=== PATIENT | female | born 1985 | race African-American/Black ===

== ENCOUNTER 2024-09-05 09:04 | Outpatient (CLI) | payer BC, SELFPAY ==
[2024-09-05 10:07] LABS: Hematocrit 39.9 % (37.0-47.0); Hemoglobin 12.7 g/dL (12.0-15.0); Mean Corpuscular HGB Conc 31.8 g/dl (32-36); Mean Corpuscular Hemoglobin 29.7 pg (26-34); Mean Corpuscular Volume 93.2 fl (80-100); Mean Platelet Volume 12.2 fl (7.4-10.4); Platelet Count Result 168 k/mm3 (150-375); Red Blood Count 4.28 M/mm3 (4.2-5.4); Red Cell Distribution Width 12.6 % (11.5-14.5); White Blood Count 7.7 K/mm3 (4.5-10.0)
--- OUTSIDE RECORDS SUMMARY | 2024-09-09 00:48 | XMS_ITS | Encounter Summary ---
Author Organization [facility] Address [address] [place] [address]. [place], [place] [address] [place] [id number] Care Team Providers Care Medical Billing Representative Name Role Phone Steve Benitez MD Primary Care Provider [phone] Reason for Visit * Reason Comments Urinary Symptoms Encounter Details Date Type Department Care Team (Latest Contact Info) Description 09/27/2018 11:36 AM WATER TESTER - 09/27/2018 12:18 PM WATER TESTER Hospital Encounter [facility] [id number] [place] [address] Gustavo Gore PA-C [address] [address] Urinary Symptoms Discharge Disposition: Home or Self Care (Routine Discharge) Social History Tobacco Use Types Packs/Day Years Used Date Smoking Tobacco: Never Smokeless Tobacco: Never Alcohol Use Standard Drinks/Week Comments No 0 (1 standard drink = 0.6 oz pur e alcohol) AUDIT-C Answer Date Recorded Frequency of Alcohol Consumption Never 09/27/2018 Average Number of Drinks Not on file 019 Frequency of Binge Drinking Not on file 01/2019 Comments No Sex and Gender Information Value Date Recorded Sex Assigned at Not on file Legal Sex Female 11:32 AM WATER TESTER Gender Identity Not on file Sexual Orientation Not on file documented as of this encounter Last Filed Vital Signs Vital Sign Reading Time Taken Comments Blood Pressure 144/91 09/27/2018 11:37 AM WATER TESTER Pulse 72 09/27/2018 11:37 AM WATER TESTER Temperature 36.9 ??C (98.4 ??F) 09/27/2018 11:[address] Respiratory Rate 20 09/27/2018 11:37 AM WATER TESTER Oxygen Saturation 100% 09/27/2018 11:37 AM WATER TESTER Inhaled Oxygen Concentration - - Weight 80.7 kg (178 lb) 09/27/2018 11:37 AM WATER TESTER Height 160 cm (5' 3 ) 09/27/2018 11:37 AM WATER TESTER Body Mass Index 31.53 09/27/2018 11:37 AM WATER TESTER documented in this encounter Discharge Instructions * Discharge Instructions* Gustavo Gore PA-C - 09/27/2018 12:16 PM WATER TESTER Use antibiotics as directed for urinary tract infection. Use antibiotics as directed for bacterial vaginosis. Use Diflucan 1 time as directed. Follow-up with your primary care physician for further evaluation of symptoms and follow- up with GLORY HOLE TENDER at your upcoming appointment regarding current symptoms. Return to ED if symptoms change or worsen. R TESTER * Attachments The following attachments cannot be sent through Care Everywhere. * Urinary Tract Infection Discharge Instructions, Adult (Malawian) * Bacterial Vaginosis Discharge Instructions (Malawian) documented in this encounter Medications at Time of Discharge B Complex Vitamins (B-COMPLEX/B-12 OR) estradiol 0.1 MG/24HR Place 1 patch onto the skin once a week. ferrous sulfate, 65 mg elemental, 325 (65 FE) MG tablet Take 325 mg by mouth daily with breakfast. montelukast 10 MG tablet Take 10 mg by mouth nightly at bedtime. multivitamin tablet TK 1 T PO QD 0 07/05/2018 cephALEXin 500 MG capsule Take 1 capsule (500 mg total) by mouth 2 (two) times daily for 7 days. 14 capsule 09/27/2018 10/04/2018 fluconazole (DIFLUCAN) 150 MG tablet Take 1 tablet (150 mg total) by mouth once for 1 dose. 1 tablet 09/27/2018 09/27/2018 metroNIDAZOLE 500 MG tablet Take 1 tablet (500 mg total) by mouth 2 (two) times a day for 7 days. 14 tablet 09/27/2018 10/04/2018 documented as of this encounter ED Notes * Gustavo Gore PA-C - 09/27/2018 12:02 PM CST Chief Complaint Chief Complaint Patient presents with ??? Urinary Symptoms History of Present Illness Patient is a 33-year-old -Greenlandic female who presents to the urgent care with reports of increased urinary frequency, intermittent lumbar back pain and vaginal discharge over the past 1 week.Patient reports her GLORY HOLE TENDER prescribed metronidazole gel and Diflucan which she reports she took last week without improvement of her symptoms. Patient reports no concern for sexual transmitted infection. Patient denies any fever, chills, chest pain, shortness of breath, nausea, vomiting, abdominal pain, diarrhea or constipation. Medical History ALLERGIES: No Known Allergies MEDICATIONS: Prior to Admission medications Medication Sig Start Date End Date Taking? Authorizing Provider B Complex Vitamins (B-COMPLEX/B-12 OR) Yes Doc Abstract cephALEXin 500 MG capsule Take 1 capsule (500 mg total) by mouth 2 (two) times daily for 7 days. 09/27/18 10/04/18 Yes Gustavo Gore PA-C estradiol 0.1 MG/24HR Place 1 patch onto the skin once a week. Yes Doc Abstract ferrous sulfate, 65 mg elemental, 325 (65 FE) MG tablet Take 325 mg by mouth daily with breakfast. Yes Doc Abstract fluconazole (DIFLUCAN) 150 MG tablet Take 1 tablet (150 mg total) by mouth once for 1 dose. 09/27/18 09/27/18 Yes Gustavo Gore PA-C metroNIDAZOLE 500 MG tablet Take 1 tablet (500 mg total) by mouth 2 (two) times a day for 7 days. 09/27/18 10/04/18 Yes Gustavo Gore PA-C montelukast 10 MG tablet Take 10 mg by mouth nightly at bedtime. Yes Doc Abstract multivitamin tablet TK 1 T PO QD 07/05/18 Doc Abstract PAST MEDICAL HISTORY: Past Medical History: Diagnosis Date ??? Asthma PAST SURGICAL HISTORY: Past Surgical History: Procedure Laterality Date ??? TUBAL LIGATION FAMILY HISTORY: Family History Problem Relation Age of Onset ??? Hypertension Mother SOCIAL HISTORY: Social History Tobacco Use ??? Smoking status: Never Smoker ??? Smokeless tobacco: Never Used Substance Use Topics ??? Alcohol use: No Frequency: Never ??? Drug use: No Review of Systems Review of Systems Constitutional: Negative for fever. HENT: Negative for congestion. Respiratory: Negative for cough and shortness of breath. Gastrointestinal: Negative for abdominal pain, diarrhea, nausea and vomiting. Genitourinary: Positive for dysuria, frequency and vaginal discharge. Negative for flank pain. Musculoskeletal: Positive for back pain. Skin: Negative for rash. All other systems reviewed and are negative. Physical Exam Filed Vitals: 09/27/18 1137 BP: (!) 144/91 Pulse: 72 Resp: 20 Temp: 98.4 ??F (36.9 ??C) TempSrc: Temporal SpO2: 100% Weight: 80.7 kg (178 lb) Height: 5' 3 (1.6 m) Physical Exam Constitutional: She is oriented to person, place, and time. She appears well- developed and well-nourished. No distress. HENT: Nose: Nose normal. Mouth/Throat: Oropharynx is clear and moist. Eyes: EOM are normal. Neck: Normal range of motion. Cardiovascular: Normal rate, regular rhythm and normal heart sounds. Pulmonary/Chest: Effort normal and breath sounds normal. No respiratory distress. She has no wheezes. Abdominal: Soft. There is no tenderness. There is no rebound and no guarding. No abdominal tenderness on exam. No rebounding or guarding. No flank tenderness bilaterally. Musculoskeletal: Normal range of motion. No CVA tenderness on exam. Normal range of motion upper and lower back. No lumbar tenderness on exam. Neurological: She is alert and oriented to person, place, and time. Skin: No rash noted. She is not diaphoretic. Psychiatric: She has a normal mood and affect. Nursing note and vitals reviewed. Diagnostic Studies / Procedures ELECTROCARDIOGRAMS: No results found for this visit on 09/27/18. LABORATORY STUDIES: Results for orders placed or performed during the hospital encounter of 09/27/18 URINALYSIS AUTO DIP Result Value Ref Range Specimen Type URINE CLEAN CATCH COLOR YELLOW TRANSPARENCY CLEAR Specific Martin (U) 1.020 1.001 - 1.030 U PH 7.0 5.0 - 9.0 LEUKOCYTE ESTERASE LARGE (A) NEGATIVE NITRITES NEGATIVE NEGATIVE PROTEIN, URINE NEGATIVE <30 MG/DL URINE GLUCOSE NEGATIVE NEGATIVE MG/DL U KETONES NEGATIVE NEGATIVE MG/DL UROBILINOGEN 0.2 (A) NEGATIVE MG/DL Urine Bilirubin NEGATIVE NEGATIVE MG/DL BLOOD TRACE (A) NEGATIVE CULTURE & SENSITIVITY INDICATED? SPECIMEN SETUP FOR CULTURE TEST URINE Result Value Ref Range PREG TEST NEGATIVE Specific Martin (U) 1.020 >1.009 IMAGING STUDIES No orders to display ED Course / Medical Decision Making MDM No concerning findings on physical exam. UA shows large amount of leukocyte esterase and trace amount of blood. Patient reports currently atthe end of her menstrual cycle. test negative. Patient denies any concern or risk for sexually transmitted infection. Patient will be treated with Keflex for UTI. Patient will be given metronidazole for possible bacterial vaginosis and Diflucan for yeast infection. Patient agreed to follow-up with her GLORY HOLE TENDER Dr. Espinal and has upcoming appointment. Patient was given discharge instructions and return precautions and had no questions at this time. Patient told to return to the ED if symptoms change or worsen. Clinical Impression UTI (urinary tract infection) (Primary) Vaginal discharge Disposition: Discharge Gustavo Gore PA-C 09/27/18 1217 Cosigned by David Navarro MD at 09/27/2018 1:11 PM WATER TESTER R TESTER R TESTER * Veronica Cerrato RN - 09/27/2018 11:44 AM CST PATIENT C/O LOW BACK PAIN, FREQUENCY, VAGINAL DISCHARGE WITH ODOR THAT IS WHITE. FOR PAST 3 WEEKS. TELEMETRY REGISTERED NURSE CALLED HER IN A SCRIPT FOR THE YEAST. R TESTER documented in this encounter Plan of Treatment Not on file documented as of this encounter Procedures Procedure Name Priority Date/Time Associated Diagnosis Comments TEST URINE STAT 09/27/2018 11:46 AM WATER TESTER URINE BACTERIA CULTURE Routine 09/27/2018 11:46 AM WATER TESTER URINALYSIS AUTO DIP STAT 09/27/2018 1 1:46 AM WATER TESTER documented in this encounter Results * CULTURE URINE (09/27/2018 11:46 AM WATER TESTER) SPEC DESCRIPTION URINE CLEAN CATCH 09/27/2018 12:08 PM WATER TESTER [facility] SPECIAL REQUESTS NO SPECIAL REQUEST 09/27/2018 12:08 PM WATER TESTER [facility] CULTURE RESULT POLYMICROBIAL GROWTH CONSISTENT WITH NORMAL GENITAL DANI. ?? SUSCEPTIBILITIES NOT ROUTINELY PERFORMED. 09/29/2018 3:43 PM WATER TESTER [facility] URINE SPECIMEN OBTAINED BY CLEAN CATCH PROCEDURE / Unknown 09/27/2018 11:46 AM WATER TESTER 09/27/2018 12:08 PM WATER TESTER Gustavo Gore PA-C MICROBIOLOGY - GENERAL ORDERABLES Final Result Performing Organization Address City/[facility]/ZIP Co de Phone Number [facility] [address] [place] [address], [place] [phone] [place] [address], [place] * TEST URINE (09/27/2018 11:46 AM WATER TESTER) PREG TEST NEGATIVE 09/27/2018 12:05 PM WATER TESTER [facility] SPECIFIC GRAVITY (U) 1.020 >1.009 09/27/2018 12:05 PM [facility] URINE SPECIMEN OBTAINED BY CLEAN CATCH PROCEDURE / Unknown 09/27/2018 11:46 AM WATER TESTER Gustavo Gore PA-C [place] [address], [place] * (ABNORMAL) URINALYSIS AUTO DIP (09/27/2018 11:46 AM WATER TESTER) SPECIMEN TYPE URINE CLEAN CATCH 09/27/2018 11:46 AM [facility] COLOR (U) YELLOW 09/27/2018 12:07 PM WATER TESTER [facility] Comment: TESTING PERFORMED AT [facility] [address] [place] [address] ??[id number] [address]O M[address]D., RO[address] CROSSING GUARD TRANSPARENCY CLEAR 09/27/2018 12:07 PM [facility] SPECIFIC GRAVITY (U) 1.020 1.001 - 1.030 09/27/2018 12:07 PM [facility] U PH 7.0 5.0 - 9.0 09/27/2018 12:07 PM [facility] LEUKOCYTES (U) LARGE(A) NEGATIVE 09/27/2018 12:07 PM [facility] NITRITES NEGATIVE NEGATIVE 09/27/2018 12:07 PM [facility] PROTEIN (U) NEGATIVE <30 MG/DL 09/27/2018 12:07 PM [facility] URINE GLUCOSE NEGATIVE NEGATIVE MG/DL 09/27/2018 12:07 PM [facility] KETONES MG/DL (U) NEGATIVE NEGATIVE MG/DL 09/27/2018 12:07 PM [facility] UROBILINOGEN 0.2(A) NEGATIVE MG/DL 09/27/2018 12:07 PM [facility] BILIRUBIN (U) NEGATIVE NEGATIVE MG/DL 09/27/2018 12:07 PM [facility] BLOOD (U) TRACE(A) NEGATIVE 09/27/2018 12:07 PM [facility] CULTURE & SENSITIVITY INDICATED? SPECIMEN SETUP FOR CULTURE 09/27/2018 12:07 PM [facility] URINE SPECIMEN OBTAINED BY CLEAN CATCH PROCEDURE / Unknown 09/27/2018 11:46 AM WATER TESTER us Gustavo Gore PA-C URINE ORDERABLES Final [place] [address], documented in this encounter Visit Diagnoses Diagnosis UTI (urinary tract infection)- Primary Urinary tract infection, site not specified Vaginal discharge Leukorrhea, not specified as infective documented in this encounter Care Teams Medical Billing Representative Relationship Specialty Start Date End Date Steve Benitez MD PCP - General INTERNAL MEDICINE 09/27/18 documented as of this encounter
--- OUTSIDE RECORDS SUMMARY | 2024-09-09 00:48 | XMS_ITS | Encounter Summary ---
Author Organization [facility] Address [address] [place] [address]. [place], [place] [id number] [place], [place] [id number] Care Team Providers Care Wholesaler Name Role Phone Steve Benitez MD Primary Care Provider [phone] Encounter Details Date Type Department Care Team (Latest Contact Info) Description 12/05/2023 Travel Social History Tobacco Use Types Packs/Day Years [...] on file Legal Sex Female 11:32 AM PRODUCT DESIGN SPECIALIST Gender Identity Not on file Sexual Orientation Not on file documented as of this encounter Plan of Treatment Not on file documented as of this encounter Visit Diagnoses Not on filedocumented in this encounter Additional Health Concerns Infection Onset Date Last Indicated Resolved Time Influenza - Seasonal 12/02/2023 12/02/2023 024 12:32 AM CDT documented as of this encounter Care Teams Wholesaler Relationship Specialty Start Date End Date Steve Benitez MD PCP - General INTERNAL MEDICINE 09/27/18 documented as of this encounter
--- OUTSIDE RECORDS SUMMARY | 2024-09-09 00:48 | XMS_ITS | Encounter Summary ---
Author Organization [facility] Address [address] [place] [address]. [place], [place] [id number] [place] [id number] Care Team Providers Care Banking Paralegal Name Role Phone Steve Benitez MD Primary Care Provider [phone] Reason for Visit * Reason Comments Flu Like Symptoms Encounter Details Date Type Department Care Team (Late st Contact Info) Description 12/02/2023 8:39 PM CDT - 12/02/2023 10:04 PM CDT Emergency [facility] [place] [address] Nupur Sanchez, [facility] [address] [address] Flu Like Symptoms Discharge Disposition: Home or Self Care [...] on file Legal Sex Female 11:32 AM [employer] Gender Identity Not on file Sexual Orientation Not on file documented as of this encounter Last Filed Vital Signs Vital Sign Reading Time Taken Comments Blood Pressure 139/80 12/02/2023 8:14 PM CDT Pulse 54 12/02/2023 8:12 PM CDT Temperature 36.2 ??C (97.2 ??F) 12/02/2023 8:12 PM CD T Respiratory Rate 18 12/02/2023 8:12 PM CDT Oxygen Saturation 98% 12/02/2023 8:12 PM CDT Inhaled Oxygen Concentration - - Weight 90.7 kg (200 lb) 12/02/2023 8:12 PM CDT Height 160 cm (5' 3 ) 12/02/2023 8:12 PM CDT Body Mass Index 35.43 12/02/2023 8:12 PM CDT documented in this encounter Discharge Instructions * Discharge Instructions* JULIO Stroud - 12/02/2023 9:55 PM CDT Flu symptoms typically last anywhere between 5 to 8 days, be sure to get plenty of fluids and rest while you are not feeling well, you may alternate Tylenol and ibuprofen for body aches or chills. Thank you for giving us the opportunity to care for you today. If at any point you are becoming more ill, please call your doctor, or go to the ER. You are always welcome back. If you have any questions about this visit, concerns about your symptoms, questions about your medications or other concerns, please give us a call. Our practice is committed to providing you the very best in healthcare. We want to hear from you! Please fill out the survey you get from us. Your feedback is anonymous and helps us improve the patient experience for you and others in the community we serve. - JULIO Crowder- - Emergency Medicine Provider * Attachments The following attachments cannot be sent through Care Everywhere. * Flu (Russian) documented in this encounter Medications at Time [...] TK 1 T PO QD 0 07/05/2018 benzonatate (TESSALON PERLES) 100 MG capsule Take 2 capsules (200 mg total) by mouth 3 (three) times daily as needed. 20 capsule 12/02/2023 12/09/2023 oseltamivir (TAMIFLU) 75 MG capsule Take 1 capsule (75 mg total) by mouth 2 (two) times daily for 5 days. 10 capsule 12/02/2023 12/07/2023 documented as of this encounter ED Notes * JULIO Stroud - 12/02/2023 8:13 PM CDT Chief Complaint Chief Complaint Patient presents with Flu Like Symptoms History of Present Illness 38-year-old female presents for evaluation of cough, body aches, chills. Here with son who has similar symptoms. She started feeling poorly on Saturday. Denies shortness of breath or hemoptysis. Medical History ALLERGIES: Review of patient's allergies indicates: No Known Allergies MEDICATIONS: Prior to Admission medications Medication Sig Start Date End Date Taking? Authorizing Provider benzonatate (TESSALON PERLES) 100 MG capsule Take 2 capsules (200 mg total) by mouth 3 (three) times daily as needed. 12/02/23 12/09/23 Yes JULIO Stroud oseltamivir (TAMIFLU) 75 MG capsule Take 1 capsule (75 mg total) by mouth 2 (two) times daily for 5days. 12/02/23 12/07/23 Yes JULIO Stroud B Complex Vitamins (B-COMPLEX/B-12 OR) Doc [facility] estradiol 0.1 MG/24HR Place 1 patch onto the skin once a week. Doc [facility] ferrous sulfate, 65 mg elemental, 325 (65 FE) MG tablet Take 325 mg by mouth daily with breakfast. [facility] montelukast 10 MG tablet Take 10 mg by mouth nightly at bedtime. [facility] multivitamin tablet TK 1 T PO QD 07/05/18 Doc [facility] PAST MEDICAL HISTORY: Past Medical History: Diagnosis Date Asthma PAST SURGICAL HISTORY: Past Surgical History: Procedure Laterality Date TUBAL LIGATION FAMILY HISTORY: Family History Problem Relation Name Age of Onset Hypertension Mother SOCIAL HISTORY: Social History Tobacco Use Smoking status: Never Smokeless tobacco: Never Substance Use Topics Alcohol use: No Drug use: No Review of Systems Review of Systems Respiratory: Positive for cough. Physical Exam Filed Vitals: 12/02/23201112/02/232013 BP: 139/80 Pulse: (!) 54 Resp: 18 Temp: 97.2 ??F (36.2 ??C) TempSrc: Temporal SpO2: 98% Weight: 90.7 kg (200 lb) Height: 1.6 m (5' 3 ) Physical Exam Vitals and nursing note reviewed. Constitutional: Appearance: She is well-developed. She is ill-appearing. HENT: Head: Normocephalic. Eyes: Pupils: Pupils are equal, round, and reactive to light. Cardiovascular: Rate and Rhythm: Normal rate and regular rhythm. Pulmonary: Effort: Pulmonary effort is normal. No respiratory distress. Breath sounds: Normal breath sounds. No wheezing or rales. Musculoskeletal: General: Normal range of motion. Skin: General: Skin is warm and dry. Neurological: Mental Status: She is alert and oriented to person, place, and time. Psychiatric: Mood and Affect: Mood normal. Diagnostic Studies / Procedures ELECTROCARDIOGRAMS: No results found for this visit on 12/02/23. LABORATORY STUDIES: Results for orders placed or performed during the hospital encounter of 12/02/23 CORONAVIRUS (COVID 19) Specimen: NASAL Result Value Ref Range CORONAVIRUS SARS COV 2 RNA NEGATIVE NEGATIVE Specimen Type NASAL INFLUENZA A & B Specimen: NASOPHARYNGEAL SWAB Result Value Ref Range Specimen Type SWAB INFLUENZA A NEGATIVE NEGATIVE INFLUENZA B POSITIVE (A) NEGATIVE IMAGING STUDIES: XR CHEST PORTABLE Final Result by User, [id number] (12/01 2101) Examination: Chest x-ray 1 view Exam date/time: 12/02/2023 8:37 PM Reason For Exam: cough, fever Comparison: No prior exam Technique: Upright AP view of the chest demonstrated. Findings: The cardiac silhouette, mediastinal contours, and pulmonary vessels appear normal. The lungs are clear. No pneumothorax. No consolidations or effusions are seen. =====IMPRESSION:===== No radiographic evidence of active chest disease Ordered By: NUPUR SANCHEZ Interpreted By: Nito Lizarraga MD, 12/02/2023 9:01 PM MEDICATIONS: Medications acetaminophen (TYLENOL) tablet 650 mg (650 mg Oral Given 12/02/232044) benzonatate (TESSALON) capsule 200 mg (200 mg Oral Given 12/02/232045) Discharge Medication List as of 12/02/2023 10:01 PM START taking these medications Details benzonatate (TESSALON PERLES) 100 MG capsule Take 2 capsules (200 mg total) by mouth 3 (three) times daily as needed., Starting 12/02/2023, Until 12/09/2023 at 2359, Eprescribe Class: Eprescribe Pharmacy: [facility] #[id number] [place] [address] (Ph #: [phone]) oseltamivir (TAMIFLU) 75 MG capsule Take 1 capsule (75 mg total) by mouth 2 (two) times daily for 5days., Starting 12/02/2023, Until 12/07/2023, Eprescribe Class: Eprescribe Pharmacy: [facility] #[id number] [place] [id number] (Ph #: [phone]) ED Course / Medical Decision Making Medical Decision Making Influenza positive. Patient presents with upper respiratory symptoms. Nontoxic, does not meet SIRS criteria. No uvula deviation or unilateral tonsillar swelling to indicate tonsillar abscess, no meningismus or trismus, no dysphagia or difficulty handling secretions, no evidence for otitis media. Patient is not in respiratory distress, oxygen saturation within normal limits, does not appear clinically dehydrated and is tolerating oral intake. Presentation consistent with influenza, offered Tamiflu and she did express desire for this. Encouraged patient on oral hydration and supportive care. Return precautions discussed, nontoxic exit exam Clinical Impression Influenza B (Primary) Disposition: Discharge NOTE: I dictated portions of this note using [employer] speech recognition software. Occasional wrong word or sound-alike substitutions may have occurred due to the inherent limitations of voice recognition software. JULIO STROUD 12/03/2023 JULIO Stroud 12/03/23 0138 Cosigned by Remy Luo MD at 12/03/2023 8:08 PM CDT * Marcelina Givens RN - 12/02/2023 8:11 PM CDT Pt presents to with ED with cough, fever, chills, body aches, and shortness of breath since Saturday. documented in this encounter Plan of Treatment Not on file documented as of this encounter Procedures Procedure Name Priority Date/Time Associated Diagnosis Comments XR CHEST PORTABLE STAT 12/02/2023 8:5 7 PM CDT CORONAVIRUS (COVID 19) STAT 12/02/2023 8:46 PM CDT INFLUENZA A & B STAT 12/02/2023 8:46 PM CDT documented in this encounter Results * XR CHEST PORTABLE (12/02/2023 8:57 PM CDT) Anatomical Region Laterality Modality Chest Radiographic Monae ging 12/02/2023 9:01 PM CDT Impressions 12/02/2023 9:01 PM CDT =====IMPRESSION:===== No radiographic evidence of active chest disease Ordered By: NUPUR SANCHEZ Interpreted By: Nito Lizarraga MD, 12/02/2023 9:01 PM Narrative 12/02/2023 9:01 PM CDT Examination: Chest x-ray 1 view Exam date/time: 12/02/2023 8:37 PM Reason For Exam: ??cough, fever ? Comparison: No prior exam Technique: Upright AP view of the chest demonstrated. Findings: ??The cardiac silhouette, mediastinal contours, and pulmonary vessels appear normal. The lungs are clear. No pneumothorax. No consolidations or effusions are seen. Procedure Note Nito Lizarraga MD - 12/02/2023 Examination: Chest x-ray 1 view Exam date/time: 12/02/2023 8:37 PM Reason For Exam: cough, fever Comparison: No prior exam Technique: Upright AP view of the chest demonstrated. Findings: The cardiac silhouette, mediastinal contours, and pulmonaryvessels appear normal. The lungs are clear. No pneumothorax. Noconsolidations or effusions are seen. =====IMPRESSION:===== No radiographic evidence of active chest disease Ordered By: NUPUR SANCHEZ Interpreted By: Nito Lizarraga MD, 12/02/2023 9:01 PM Nupur Sanchez [facility] GENERAL IMAG[facility] Final Resul t * (ABNORMAL) INFLUENZA A & B (12/02/2023 8:46 PM CDT) SPECIMEN TYPE SWAB 12/02/2023 9:09 PM CDT [facility] INFLUENZA A NEGATIVE NEGATIVE 12/02/2023 9:32 PM CDT [facility] INFLUENZA B POSITIVE(A) NEGATIVE 12/02/2023 9:32 PM CDT [facility] NASOPHARYNGEAL SWAB / Unknown 12/02/2023 8:46 PM CDT Nupur Sanchez [facility] MICROBIOLOGY - GENERAL ORDE RABLES Final Result [facility] [address] [place] [address], [place] [phone] * CORONAVIRUS (COVID 19) (12/02/2023 8:46 PM CDT) CORONAVIRUS SARS COV 2 RNA NEGATIVE NEGATIVE 12/02/2023 9:32 PM CDT [facility] Comment: NEGATIVE RESULTS DO NOT RULE OUT COVID 19 AND SHOULD NOT BE USED THE SOLE BASIS FOR TREATMENT OR PATIENT MANAGEMENT DECISIONS, INCLUDING INFECTION CONTROL DECISIONS. NEGATIVE RESULTS SHOULD BE CONSIDERED IN THE CONTEXT OF A PATIENT'S RECENT EXPOSURES, HISTORY AND THE PRESENCE OF CLINICAL SIGNS AND SYMPTOMS CONSISTENT WITH COVID 19. THE ID NOW COVID-19 2.0 TEST HAS BEEN AUTHORIZED BY THE FDA UNDER EAU FOR USE BY AUTHORIZED LABORATORIES. PERFORMED BY NUCLEIC ACID AMPLIFICATION FOR MOLECULAR QUALITATIVE DETECTION OF SARS-COV-2. SPECIMEN TYPE NASAL 12/02/2023 8:46 PM CDT [facility] NASAL STRUCTURE / Unknown 12/02/2023 8:46 PM CDT Nupur Sanchez [facility] MICROBIOLOGY - GENERAL ORDE NICK Final Result [facility] [address] [place] [address], documented in this encounter Visit Diagnoses Diagnosis Influenza B- Primary Influenza with other respiratory manifestations documented in this encounter Administered Medications Inactive Administered Medications - up to 3 most recent administrations Medication Order MAR Action Action Date Dose Rate Site acetaminophen (TYLENOL) tablet 650 mg 650 mg, Oral, Once, 1 dose, On Sat12/02/23 at 2014, Maximum dose of acetaminophen is 4000 mg from all sources in 24 hours. Given 12/02/2023 8:45 PM CDT 650 mg benzonatate (TESSALON) capsule 200 mg 200 mg, Oral, Once, 1 dose, On Sat12/02/23 at 2014 Given 12/02/2023 8:46 PM CDT 200 mg documented in this encounter Active and Recently Administered Medications Due to Daylight Saving Time, this section may contain times in both [employer] and CDT. Scheduled Medication Order 11/30/2023 12/01/2023 12/02/2023 acetaminophen (TYLENOL) tablet 650 mg (COMPLETED) 650 mg, Oral, Once, 1 dose, On Sat12/02/23 at 2014, Maximum dose of acetaminophen is 4000 mg from all sources in 24 hours. 2044 (Given - Provid er: Charo Marie RN) benzonatate (TESSALON) capsule 200 mg (COMPLETED) 200 mg, Oral, Once, 1 dose, On Sat12/02/23 at 2014 2045 (Given - Provid er: Charo Marie RN) documented in this encounter Additional Health Concerns Infection Onset Date Last Indicated Resolved Time COVID-19 Rule Out 12/02/2023 12/02/2023 12/02/2023 9:32 PM CDT Influenza - Seasonal 12/02/2023 12/02/2023 024 12:32 AM CDT documented as of this encounter Care Teams Banking Paralegal Relationship Specialty Start Date End Date Steve Benitez MD PCP - General INTERNAL MEDICINE 09/27/18 documented as of this encounter
--- OUTSIDE RECORDS SUMMARY | 2024-09-09 00:48 | XMS_ITS | Continuity of Care Document ---
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 Studies ordered as below. Discussed plan with patient/careg iver, who expressed understanding . Follow up as noted below. [email or web address] Not available 08/26/2024 15:11:29 Plan of Treatment Reminders Order Date Submit Date Provider Last Modified By Organization Details Last Modified Time Details Appointments ESTABLISH ED PATIENT 15 2024 02:15P Jaylen Benitez MD Not available Not available Not available Lab lipid panel w/ direct LDL, serum 2023 024 [facility], [address], [place], [address], 09/02/2024 04:05:53 hepatitis C Ab, serum 2023 024 [facility], [address], [place], [address], 09/02/2024 04:05:53 urinalysi s, dipstick 2023 024 [facility], [facility], [address], [place], [address], 08/27/2024 08:55:14 microalbu min/creat inine, mass ratio, urine 2023 [facility], [address] [facility] [address] [facility] [address], [place], [address], 08/26/2024 15:46:04 CMP, serum or plasma 2023 [facility], [address], [place], [address], 09/02/2024 04:05:52 CBC 2023 [facility], [address], [place], [address], 09/02/2024 04:05:52 vitamin D, 25-hydrox y, total, serum 2023 [facility], [address], [place], [address], 09/02/2024 04:05:53 magnesium , QN, serum or plasma 2023 [facility], [address], [place], [address], 09/02/2024 04:05:53 vitamin B12, serum 2023 [facility], [address] [place], [address], 09/02/2024 04:05:53 Referral physical therapist referral 2023 [facility], [address], [place] [address], [place], [address], 08/26/2024 16:03:19 Procedures None recorded. Surgeries None recorded. Imaging MAMMO, screening , digital, bilateral 2023 [facility]uling, [address] [facility], [place], [address], 09/02/2024 04:05:54 Medication Orders Airsupra 90 mcg-80 mcg/actua tion HFA aerosol inhaler 2023 [id number], [address], [place], [id number], 08/26/2024 15:45:37 phentermi ne 15 mg capsule 2023 [facility] #[id number], [address], [place], [id number], 08/26/2024 15:45:44 topiramat e 25 mg tablet 2023 [facility] #[id number], [address], [place], [id number], 08/26/2024 15:45:37 Patient TargetsNo targets recorded. Patient Instructions Encounter Date Encounter Id Patient Instructions Last Modified By Organization Details Last Modified Time 08/26/2024 [id number] mammogram: about this test [email or web address] Not available 08/26/2024 15:45:21 infection from tattoos: care instructions [email or web address] Not available 08/26/2024 15:45:21 high blood pressure: care instructions [email or web address] Not available 08/26/2024 15:45:21 learning about high blood pressure [email or web address] Not available 08/26/2024 15:45:21 body mass index: care instructions [email or web address] Not available 08/26/2024 15:45:21 learning about healthy weight [email or web address] Not available 08/26/2024 15:45:21 Reason for Referral Physical Therapist Referral for Lumbago with sciatica Referring Physician: Steve Benitez, Internal Medicine, Encounter Date: 08/26/2024 Results Created Date Observation Date Name Description Value Unit Range Abnormal Flag Note LastModifiedBy Organization Detail LastModifiedTime 08/27/20 24 08/27/2024 urina lysis , dipst ick Leukocytes Negati ve Not Available [facility], [facility] [address], [place], [address], 08/26/2024 15:42:39 08/27/20 24 08/27/2024 urina lysis , dipst ick Nitrite negati ve Not Available [facility] [address], [place], [address], 08/26/2024 15:42:39 08/27/20 24 08/27/2024 urina lysis , dipst ick Urobilinogen 4 Not Available [facility] [address], [place], [address], 08/26/2024 15:42:39 08/27/20 24 08/27/2024 urina lysis , dipst ick Protein Trace Not Available [facility] [address], [place], [address], 08/26/2024 15:42:39 08/27/20 24 08/27/2024 urina lysis , dipst ick pH 5.[address] [facility] [address], [place], [address], 08/26/2024 15:42:39 08/27/20 24 08/27/2024 urina lysis , dipst ick Blood Negati ve Not Available [facility] [address], [place], [address], 08/26/2024 15:42:39 08/27/20 24 08/27/2024 urina lysis , dipst ick Specific Gypsum 1.005 Not Available [facility] [address], [place], [address], 08/26/2024 15:42:39 08/27/20 24 08/27/2024 urina lysis , dipst ick Ketone Negati ve Not Available [facility] [address], [place], [address], 08/26/2024 15:42:39 08/27/20 24 08/27/2024 urina lysis , dipst ick Bilirubin Negati ve Not Available [facility] [address], [place], [address], 08/26/2024 15:42:39 08/27/20 24 08/27/2024 urina lysis , dipst ick Glucose Negati ve Not Available [facility] [address], [place], [address], 08/26/2024 15:42:39 08/27/20 24 08/27/2024 urina lysis , dipst ick Appearance Cloudy Not Available [facility] [address], [place], [address], 08/26/2024 15:42:39 08/27/20 24 08/27/2024 urina lysis , dipst ick Color Yellow Not Available [facility] [address], [place], [address], 08/26/2024 15:42:39 Result Notes None recorded. Problems Name Problem SNOMED Code Status Onset Date Resolution Date Notes Provider Name and Address Organization Details Recorded Time Asthma 413171743 Active Marguerite stern [facility] 6 12:21:02 Essential hypertensi on 86588852 Active Marguerite stern [facility] 6 12:21:16 Overweight 518699736 Active 2015 Steve Benitez MD [address], [place], [address], [facility] 6 12:58:08 Ex-smoker 3918450 Active 2015 Steve Benitez MD [address], [place], [address], [facility] 6 12:58:57 Cyst of thyroid 34742022 Active 2016 on U/S 08/2016 Steve Benitez MD [address], [place], [address], [facility] 7 17:23:47 Obstructiv e sleep apnea of adult 8878596504646 Active 2016 Steve Benitez MD [address], [place], [address], [facility] 7 14:53:58 History of bariatric surgical procedure 000384555 Active 2016 sleeve 04/22/17 Steve Benitez MD [address], [place], [address], [facility] 7 10:53:32 Tattoo of skin 881649054632 Active 2018 Steve Benitez MD [address], [place], [address], [facility] 9 15:33:39 Gastroesop hageal reflux disease without esophagiti s 437212874 Active 2020 Steve Benitez MD [address], [place], [address], [facility] 1 19:24:59 Cholelithi asis without obstructio n 85832618 Active [address] 04/19/21 Steve Benitez MD [address], [place], [address], [facility] 1 13:25:01 History of SARS-CoV-2 9608986287899 02330 Active 2023 Steve Benitez MD [address], [place], [address], [facility] 4 12:32:09 Body mass index 30+ - obesity 719390119 Active 2023 Steve Benitez MD [address], [place], [address], [facility] 4 12:35:33 Chronic constipati on 117112723 Active 2023 Steve Benitez MD [address], [place], [address], [facility] 4 12:40:35 Low back pain 755340729 Active 2023 Steve Benitez MD [address], [place], [address], [facility] 4 12:42:20 Problem Notes None recorded. Procedures Surgical History Date Name Laterality Status Provider Name and Address Organization Details Recorded Time 1 Date of Last Mammogram completed RAKAN ROE [facility] 12/05/2020 19:11:22 7 Date of Last Pap Smear completed ROSA ISELA LO [facility] 04/17/2017 09:20:16 Imaging Results None recorded. Procedure Notes None recorded. Medical Equipment None Reported. Allergies No known drug allergies Medications Name Sig Start Date Stop Date Status Note LastModified by Organization Details LastModified Time cyclobenz aprine 10 mg tablet 05/04 completed Not Available Not Available Not Available amoxicill in 500 mg capsule TAKE 1 CAPSULE BY MOUTH TWICE DAILY FOR 7 DAYS 12/16 completed Not Available Not Available Not Available fluconazo le 100 mg tablet TAKE 1 TABLET BY MOUTH EVERY DAY 12/16 completed Not Available Not Available Not Available doxycycli ne hyclate 100 mg capsule Take 1 capsule twice a day by oral route. 05/28 completed Not Available Not Available Not Available erythromy donal 500 mg tablet 09/12 completed Not Available Not Available Not Available azithromy donal 250 mg tablet TAKE 2 TABLETS BY MOUTH FOR 1 DAY THEN TAKE 1 TABLET BY MOUTH DAILY FOR 4 DAYS 12/16 completed Not Available Not Available Not Available fluconazo le 150 mg tablet TAKE 1 TABLET BY MOUTH EVERY 72 HOURS 12/16 completed Not Available Not Available Not Available hydrocodo ne 5 mg-acetam inophen 325 mg tablet 10/29 completed Not Available Not Available Not Available metronida zole 0.75 % (37.5 mg/5 gram) vaginal gel IVB FOR 5 DAYS 12/05 completed Not Available Not Available Not Available ondansetr on HCl 4 mg tablet 06/19 completed Not Available Not Available Not Available prednison e 20 mg tablet 05/04 completed Not Available Not Available Not Available Nifedical XL 30 mg tablet,ex tended release 09/12 completed Not Available Not Available Not Available phentermi ne 15 mg capsule Take 1 capsule every day by oral route. 2023 active Not Available Not Available Not Avai lable clotrimaz ole 1 % vaginal cream IVB 12/05 completed Not Available Not Available Not Available topiramat e 25 mg tablet Take 1 tablet every day by oral route. 2023 active Not Available Not Available Not Avai lable metronida zole 500 mg tablet TAKE 1 TABLET BY MOUTH EVERY 12 HOURS 12/16 completed Not Available Not Available Not Available phentermi ne 37.5 mg tablet TAKE 2 TABLETS BY MOUTH EVERY DAY 12/16 completed Not Available Not Available Not Available acetamino phen 300 mg-codein e 30 mg tablet 01/18 completed Not Available Not Available Not Available ciproflox acin 250 mg tablet Take 1 tablet every 12 hours by oral route for 4 days. 02/09 completed Not Available Not Available Not Available hydrocodo ne 10 mg-acetam inophen 325 mg tablet 09/19 completed Not Available Not Available Not Available tramadol 50 mg tablet 09/12 completed Not Available Not Available Not Available acetamino phen 500 mg tablet TK 1 T PO Q 6 H PRN P 12/16 completed Not Available Not Available Not Available ketorolac 30 mg/mL (1 mL) injection solution Inject 1 mL every 6 hours by intramus cular route. 04/24 completed Not Available Not Available Not Available terconazo le 80 mg vaginal supposito ry 01/18 completed Not Available Not Available Not Available ciclopiro x 8 % topical solution APPLY TO THE AFFECTED AREA(S) BY TOPICAL ROUTE ONCE DAILY PREFERAB LY AT BEDTIME OR 8 HOURS BEFORE WASHING 10/29 completed Not Available Not Available Not Available meloxicam 7.5 mg tablet Take 1 tablet every day by oral route as needed. 2023 active Not Available Not Available Not Avai lable oxycodone -acetamin ophen 5 mg-325 mg tablet 01/18 completed Not Available Not Available Not Available oxycodone -acetamin ophen 10 mg-325 mg tablet 02/09 completed Not Available Not Available Not Available baclofen 10 mg tablet TAKE 1 TABLET BY MOUTH TWICE DAILY active Not Available Not Available No t Available benzonata te 100 mg capsule 12/16 completed Not Available Not Available Not Available hydrocodo ne 7.5 mg-acetam inophen 325 mg tablet 09/12 completed Not Available Not Available Not Available cephalexi n 500 mg capsule 10/29 completed Not Available Not Available Not Available oseltamiv ir 75 mg capsule 12/16 completed Not Available Not Available Not Available Cipro 500 mg tablet Take 1 tablet every 12 hours by oral route. 03/30 completed Not Available Not Available Not Available misoprost ol 200 mcg tablet 01/18 completed Not Available Not Available Not Available ursodiol 300 mg capsule TAKE 1 CAPSULE BY MOUTH TWICE DAILY 05/04 completed Not Available Not Available Not Available hydrochlo rothiazid e 12.5 mg capsule 1 PO QAM 09/19 completed Not Available Not Available Not Available omeprazol e 20 mg capsule,d elayed release TAKE 1 CAPSULE BY MOUTH EVERY DAY NEEDED 12/16 completed Not Available Not Available Not Available monteluka st 10 mg tablet TAKE 1 TABLET BY MOUTH EVERY DAY active Not Available Not Available No t Available gabapenti n 100 mg capsule Take 1 capsule 3 times a day by oral route. 01/18 completed Not Available Not Available Not Available ibuprofen 600 mg tablet 01/18 completed Not Available Not Available Not Available oxycodone -acetamin ophen 7.5 mg-325 mg tablet 02/09 completed Not Available Not Available Not Available methylpre dnisolone 4 mg tablets in a dose pack Take 1 package by oral route as directed . 03/13 completed Not Available Not Available Not Available labetalol 100 mg tablet Take 0.5 tablets every day by oral route. 09/19 completed Not Available Not Available Not Available albuterol sulfate HFA 90 mcg/actua tion aerosol inhaler INHALE 2 PUFFS BY MOUTH EVERY 8 HOURS 05/28 completed Not Available Not Available Not Available ketorolac 60 mg/2 mL intramusc ular solution Inject 1 mL every 6 hours by intramus cular route. 03/13 completed Not Available Not Available Not Available fluticaso ne propionat e 50 mcg/actua tion nasal spray,carlos eduardo pension SHAKE LIQUID AND USE 1 SPRAY IN EACH NOSTRIL EVERY DAY active Not Available Not Available No t Available sertralin e 50 mg tablet 09/12 completed Not Available Not Available Not Available doxycycli ne hyclate 100 mg tablet 01/18 completed Not Available Not Available Not Available naproxen 500 mg tablet 09/12 completed Not Available Not Available Not Available amoxicill in 875 mg-potass ium clavulana te 125 mg tablet Take 1 tablet every 12 hours by oral route. 01/18 completed Not Available Not Available Not Available cyclobenz aprine 5 mg tablet active Not Available Not Available No t Available Jolivette 0.35 mg tablet 09/12 completed Not Available Not Available Not Available Senna Plus 8.6 mg-50 mg tablet Take 2 tablets every day by oral route. 2023 active Not Available Not Available Not Avai lable nitrofura ntoin monohydra te/macroc rystals 100 mg capsule 03/13 completed Not Available Not Available Not Available Mucinex DM 30 mg-600 mg tablet,ex tended release 12 hr Take 1 tablet every 12 hours by oral route. 05/28 completed Not Available Not Available Not Available chlorhexi dine gluconate 0.12 % mouthwash 01/18 completed Not Available Not Available Not Available Tylenol-C odeine #3 06/19 completed Not Available Not Available Not Available omeprazol e 20 03/13 completed Not Available Not Available Not Available hydrochlo rothiazid e 12.5 mg tablet Take 1 tablet every day by oral route in the morning. 10/29 completed Not Available Not Available Not Available Symbicort 160 mcg-4.5 mcg/actua tion HFA aerosol inhaler INHALE 2 PUFFS BY MOUTH TWICE DAILY active Not Available Not Available No t Available Se-Arianna 19 (with docusate) 29 mg iron-1 mg-25 mg tablet 09/12 completed Not Available Not Available Not Available Vicodin ES 7.5 mg-300 mg tablet 03/13 completed Not Available Not Available Not Available Gynazole- 1 2 % vaginal cream 09/12 completed Not Available Not Available Not Available Contrave 8 mg-90 mg tablet,ex tended release Take 2 tablets twice a day by oral route. 06/19 completed Not Available Not Available Not Available Linzess 72 mcg capsule Take 1 capsule every day by oral route. 01/18 completed Not Available Not Available Not Available Simpesse 0.15 mg-30 mcg (84)/10 mcg(7) tablets,3 month dose pack TAKE 1 TABLET BY MOUTH EVERY DAY 05/28 completed Not Available Not Available Not Available Wegovy 0.25 mg/0.5 mL subcutane ous pen injector active deied - plan does not cover weight loss meds Not Available Not Available Not Available Airsupra 90 mcg-80 mcg/actua tion HFA aerosol inhaler Inhale 2 inhalati ons 3 times a day by inhalati on route. 2023 active Not Available Not Available Not Avai lable Zepbound 10 mg/0.5 mL subcutane ous pen injector Inject 10 mg every week by subcutan eous route. 06/04 completed Not Available Not Available Not Available Zepbound 5 mg/0.5 mL subcutane ous pen injector ADMINIST ER 5 MG UNDER THE SKIN EVERY WEEK 05/10 completed Not Available Not Available Not Available Zepbound 2.5 mg/0.5 mL subcutane ous pen injector ADMINIST ER 2.5 MG UNDER THE SKIN EVERY WEEK active Not Available Not Available No t Available Zepbound 7.5 mg/0.5 mL subcutane ous pen injector ADMINIST ER 7.5 MG UNDER THE SKIN EVERY WEEK 05/18 completed increase d dose to 10 Not Available Not Available Not Available Vitals Date Recorded Body height Body mass index (BMI) Body weight Body temperature Respiratory rate Heart rate Systolic blood pressure Diastolic blood pressure Provider Name and Address Organization Details Last Updated DateTime 4 167.64 cm 32.9 kg/m2 11834.8 4 g 98.5 [degF] 16 /min 98 /min 124 mm[Hg] 90 mm[Hg] Esther Careyaly [facility] 4 15:13:44 Social History Question Answer Notes LastModified by Organizat ion Details LastModified Time Tobacco Smoking Status Former Smoker Marguerite Gutierrez jarred [facility] 09/12/2016 12:25:13 What Is Your Level Of Alcohol Consumption? Occasional [email or web address] Information not available 09/12/2016 In The 14 Days Before Symptom Onset, Have You Had Close Contact With A Laboratory-confir med COVID-19 While That Case Was Ill? No Information not available 01/19/2020 In The 14 Days Before Symptom Onset, Have You Had Close Contact With A Person Who Is Under Investigation For COVID-19 While That Person Was Ill? No Information not available 01/19/2020 Have You Been To An Area Known To Be High Risk For COVID-19? No Information not available 01/19/2020 Have You Directly Handled Bats, Rodents, Or Primates From Ebola Endemic Areas? No Information not available 01/19/2020 Have You Processed Blood Or Body Fluids From An Ebola Virus Disease Patient Without Appropriate PPE? No Information not available 01/19/2020 Have You Had Household Contact With An Ebola Virus Disease Patient? No Information not available 01/19/2020 Have You Had Direct Contact With A Body In An Ebola-affected Area Without Appropriate PPE? No Information not available 01/19/2020 Have You Had Percutaneous (e.g. Needle Stick) Or Mucous Membrane Exposure To Blood Or Body Fluids From An Ebola Virus Disease Patient? No Information not available 01/19/2020 Have You Had Other Close Contact With An Ebola Virus Disease Patient In Health Care Facilities Or Community Settings? No Information not available 01/19/2020 Do You Reside In Or Have You Traveled To An Area Where Ebola Virus Transmission Is Active? No Information not available 01/19/2020 Live Alone Or With Others? With Others [email or web address] Information not available 09/12/2016 What Was The Date Of Your Most Recent Tobacco Screening? 02/09/2019 Information not available 04/15/2019 Sex: Unknown Functional Status None recorded. Mental Status None recorded. Family History Relationship Description Onset Age of this Age Resolved Age Notes LastModified by Organization Details LastModified Time Maternal Grandfather Essential hypertension [email or web address] Not available 12/2023 15:01:36 Maternal Grandfather Cerebrovascu lar accident [email or web address] Not available 12/2023 15:01:36 Paternal Grandmother Essential hypertension [email or web address] Not available 12/2023 15:01:36 Paternal Grandmother Heart disease [email or web address] Not available 2015 12:27:05 Brother Essential hypertension [email or web address] Not available 12/2023 15:01:36 Medical History Condition Response Coronary Artery Disease N Other N Gout N Kidney Stones N Blood Diseases N Hyperthyroidism N Breast Cancer N Blood Transfusion N COPD N Depression N Lung Disease N Hypothyroidism N Defects or Inherited Disease N Developmental or Behavioral Disorders N Breast Problem N Difficulty Swallowing N Anesthesia Complications N Meniere's disease N Anxiety Disorder N Muscle, Joint, or Bone Problems N Obesity N Vision or Eye Problems N Arthritis N Polyps N Infertility N Mental Disorder N Cancer N Varicosities N Stroke N Endometriosis N Bladder or Kidney Problems N High Cholesterol N Liver Disease N Fibromyalgia N Headaches N Kidney Disease N Allergies/Hayfever N Heart Problems N Ear or Hearing Problems N Hospitalizations N Thyroid Problems N GI Problems N ADD/ADHD N Skin Problems N Eating Disorder N Anemia N MRSA exposure N Constipation N Mental Illness N Ovarian Cancer N Diabetes N Bedwetting N Seizures/Epilepsy N Tuberculosis N AIDS/HIV N Congestive Heart Failure (CHF) N Eczema N Diverticulitis N Abuse/Domestic Violence N Asthma N Reflux/GERD N Hepatitis N Heart Disease N Pulmonary Embolism N Pre-Eclampsia N Hypertension N Chronic Ear Infections N Osteoporosis N Chicken Pox N Autism Spectrum Disorder (ASD) N Thrombophilias N Gynecological History Statement/Question Response Date of Last Pap Smear 01/21/2017 Date of Last Mammogram 10/27/2020 Obstetrics History GPAL:G 0 P 0 0 0 0 Immunizations Vaccine Type Date Status Note Provider Nam e and Address Organization Details Recorded Time SARS-COV-2 (COVID-19) vaccine, UNSPECIFIED 11/23/2020 completed Steve Benitez MD [address], [place], [address], [facility] 12/05/2020 19:18:14 Past Encounters Encounter ID Performer Location Encounter Start Date Encounter Closed Date Diagnosis/Indication Diagnosis SNOMED-CT Code Diagnosis ICD10 Code [id number] Steve Benitez MD [facility], [facility] [address] [place] [address] 08/26/2024 14:59:50 08/26/2024 15:50:28 Asthma 573135616 J45.909 Body mass index 30+ - obesity 538146991 Z68.33 Cholelithi asis without obstruction 53971224 K80.20 Essential hypertension 51927650 I10 Gastroesop hageal reflux disease without esophagitis 498061324 K21.9 History of bariatric surgical procedure 883038903 Z98.84 Obstructiv e sleep apnea of adult 3323496052 103 G47.33 Tattoo of skin 441300274 1 02 L81.8 Cholesterol screening 27 5282073 Z13.220 Screening mammography 24 234907 Z12.31 Screening for malignant neoplasm of cervix 645248667 Z12.4 Active or passive immunization 141704375 Z23 Lumbago with sciatica 20 4372692 M54.42 Health Concerns Section Related Observation LastModified by Organization Detai ls LastModified Time None Recorded Concern Status LastModified by Organization Details LastModified Time None Recorded Payers Encounter Date Sequence Insurance Name Policy Number Policy Banks Covered Member ID Banks Member ID Guarantor Name 08/26/2024 1 [employer] [id number] Saritha Ellington [id number] Saritha Ellington Notes Date Note Type Note Provider Name and Address Organization Details Recorded Time 08/26/2024 text/html Hypertension F/UReported bypatient.Medicati ons:taking medications as directed; no side effects from medication Lifestyle:regular exercise; limiting/avoiding salt; compliant with low salt diet Associated Symptoms:no dizziness; no lightheadedness; no chest pain; no shortness of breath; no palpitations; no edema; no calf pain with exertion; no headache Steve Benitez MD [address], [place], [address], [facility] 08/26/2024 15:45:59 OBGyn Episode No OBEpisode recorded.
--- OUTSIDE RECORDS SUMMARY | 2024-09-09 00:48 | XMS_ITS | Clinical Summary ---
Author Organization [facility] Address [address] [address]. [place], [place] [address] [place] [address] Care Team Providers Care Record Tabulating Clerk Name Role Phone Steve Benitez MD Primary Care Provider [phone] Allergies No known active allergies Medications estradiol 0.1 MG/24HR Place 1 patch onto the skin once a week. Active B Complex Vitamins (B-COMPLEX/B-12 OR) Active montelukast 10 MG tablet Take 10 mg by mouth nightly at bedtime. Active ferrous sulfate, 65 mg elemental, 325 (65 FE) MG tablet Take 325 mg by mouth daily with breakfast. 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 Gender Identity Not on file Sexual Orientation Not on file Last Filed Vital Signs Vital Sign Reading Time Taken Comments Blood Pressure 125/94 12/05/2023 5:47 AM CDT Pulse 71 12/05/2023 5:47 AM CDT Temperature 37.3 ??C (99.1 ??F) 12/05/2023 5:47 AM CD T Respiratory Rate 18 12/05/2023 5:47 AM CDT Oxygen Saturation 96% 12/05/2023 5:47 AM CDT Inhaled Oxygen Concentration - - Weight 89.8 kg (198 lb) 12/05/2023 5:47 AM CDT Height 160 cm (5' 3 ) 12/05/2023 5:47 AM CDT Body Mass Index 35.07 12/05/2023 5:47 AM CDT Plan of Treatment Health Maintenance Due Date Last Done Comments Cervical Cancer Screening Pap Smear (Age 30 to 64) Every 3 Years 1984 Annual Physical 1987 Hepatitis C 2002 DTaP, Tdap and Td Vaccines (1 - Tdap) 2003 05/16/1990, 07/13/1988, 10/14/1985, Additional history exists Hepatitis B Vaccines (1 of 3 - 19+ 3-dose series) 2003 Cervical Cancer Screening Pap with HPV Testing (Age 30 to 64) Every 5 Years 2014 Cervical Cancer Screening with HPV 2014 COVID-19 Vaccine ( season) 2024 11/23/2020, 11/22/2020, 11/03/2020 Influenza Adult (#1) 2024 Mammogram Screening 2024 HPV Vaccines Aged Out No longer eligi ble based on patient's age to complete this topic Meningococcal Vaccine Aged Out No miri bao eligible based on patient's age to complete this topic Pneumococcal Vaccine: Pediatrics (0 to 5 Years) and At-Risk Patients (6 to 64 Years) Aged Out No longer eligible based on patient's age to complete this topic RSV Immunizations Under 20 Months Aged Out No longer eligible based on patient's age to complete this topic Insurance MEDICAID Care Teams Record Tabulating Clerk Relationship Specialty Start Date End Date Steve Benitez MD PCP - General INTERNAL MEDICINE 09/27/18
--- OUTSIDE RECORDS SUMMARY | 2024-09-09 00:48 | XMS_ITS | Encounter Summary ---
Author Organization [facility] Address [address] [place] [address]. 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 * Viral Syndrome Discharge Instructions (Nicaraguan) * Costochondritis ([place]icaraguan) documented in this encounter Medications at Time [...] daily as needed. 20 capsule 12/02/2023 12/09/2023 cyclobenzaprine (FLEXERIL) 5 MG tablet Take 1 tablet (5 mg total) by mouth 3 (three) times daily as needed for Muscle Spasms. 30 tablet 12/05/2023 12/15/2023 oseltamivir (TAMIFLU) 75 MG capsule Take 1 capsule (75 mg total) by mouth 2 (two) times daily for 5 days. 10 capsule 12/02/2023 12/07/2023 documented as of this encounter ED Notes * Ruben Thornton MD - 12/05/2023 6:09 AM CDT [place], [place] EMERGENCY DEPARTMENT ENCOUNTER Chief Complaint Chief Complaint Patient presents with Pleuritic Chest Pain History of Present Illness Provider at Bedside Date/Time Event User Comments 12/05/23 0602 Provider at Bedside Assessing Patient RUBEN THORNTON -- The patient is a 38-year-old female with a past medical history of asthma who presents to the emergency department for evaluation of chest pain. Patient was evaluated in this ED for URI symptoms on 12/02/23 and was diagnosed with the flu. She was discharged home with tessalon pearls and Tamiflu. Patient reports she has been coughing a lot and congested. She reports started having chest pain yesterday. She reports it worsens with movement and coughing. No history of PE/DVT, no recent travel, no recent surgeries, no hemoptysis. No exertional chest pain. No abdominal pain, no nausea/vomiting. Noother complaints. Medical History ALLERGIES: Review of patient's allergies indicates: No Known Allergies MEDICATIONS: Prior to Admission medications Medication Sig Start Date End Date Taking? Authorizing Provider cyclobenzaprine (FLEXERIL) 5 MG tablet Take 1 tablet (5 mg total) by mouth 3 (three) times daily asneeded for Muscle Spasms. 12/05/23 12/15/23 Yes Ruben Thornton MD B Complex Vitamins (B-COMPLEX/B-12 OR) Doc [facility] benzonatate (TESSALON PERLES) 100 MG capsule Take 2 capsules (200 mg total) by mouth 3 (three) times daily as needed. 12/02/23 12/09/23 JULIO Nayak estradiol 0.1 MG/24HR Place 1 patch onto the skin once a week. Doc [facility] ferrous sulfate, 65 mg elemental, 325 (65 FE) MG tablet Take 325 mg by mouth daily with breakfast. Doc [facility] montelukast 10 MG tablet Take 10 mg by mouth nightly at bedtime. Doc [facility] multivitamin tablet TK 1 T PO QD 07/05/18 Doc [facility] oseltamivir (TAMIFLU) 75 MG capsule Take 1 capsule (75 mg total) by mouth 2 (two) times daily for 5days. 12/02/23 12/07/23 JULIO Nayak PAST MEDICAL HISTORY: Past Medical History: Diagnosis Date Asthma (HHS/HCC) PAST SURGICAL HISTORY: Past Surgical History: Procedure Laterality Date TUBAL LIGATION FAMILY HISTORY: Family History Problem Relation Name Age of Onset Hypertension Mother SOCIAL HISTORY: Social History Tobacco Use Smoking status: Never Smokeless tobacco: Never Substance Use Topics Alcohol use: No Drug use: No Review of Systems Review of Systems Constitutional: Positive for chills. Negative for fever. HENT: Positive for congestion. Respiratory: Positive for cough. Negative for shortness of breath. Cardiovascular: Positive for chest pain. Negative for leg swelling. Gastrointestinal: Negative for abdominal pain, diarrhea, nausea and vomiting. Musculoskeletal: Positive for myalgias. All other systems reviewed and are negative. See HPI for further details. All systems negative except as marked. Physical Exam Filed Vitals: 12/05/23 0547 BP: (!) 125/94 Pulse: 71 Resp: 18 Temp: 99.1 ??F (37.3 ??C) TempSrc: Temporal SpO2: 96% Weight: 89.8 kg (198 lb) Height: 1.6 m (5' 3 ) Physical Exam Vitals and nursing note reviewed. Cardiovascular: Rate and Rhythm: Normal rate. Pulmonary: Effort: Pulmonary effort is normal. No respiratory distress. Breath sounds: No wheezing. Abdominal: Palpations: Abdomen is soft. Tenderness: There is no abdominal tenderness. Musculoskeletal: Right lower leg: No edema. Left lower leg: No edema. Neurological: Mental Status: She is oriented to person, place, and time. Mental status is at baseline. Diagnostic Studies / Procedures ELECTROCARDIOGRAMS: Results for orders placed or performed during the hospital encounter of 12/05/23 ECG 12 lead Narrative [address] Test Date: 2023-12-05 Pat Name: SARITHA DUNLAP Department: Room: Gender: Female Physical Therapy Professor: [id number] : 1985 Requested By: ISABELLE ANDRADE Order Number: [id number] Reading MD: Measurements Intervals [place] Rate: 81 P: 49 NV: 156 QRS: 4 QRSD: 85 T: 59 QT: 372 QTc: 434 Interpretive Statements SINUS RHYTHM WITH FREQUENT SUPRAVENTRICULAR PREMATURE COMPLEXES IN A BIGEMINAL PATTERN POSSIBLE RIGHT VENTRICULAR CONDUCTION DELAY [RSR (QR) IN V1/V2] NONSPECIFIC T-WAVE ABNORMALITY ABNORMAL RHYTHM ECG Compared to ECG 04/19/2021 09:50:34 T-wave abnormality now present LABORATORY STUDIES: No results found for this visit on 12/05/23. IMAGING STUDIES XR CHEST PORTABLE Final Result by User, [id number] (12/04 4807) INDICATION: Chest pain. COMPARISON: Chest radiograph 12/02/2023. TECHNIQUE: Single frontal view of the chest. FINDINGS: Lungs: There is no focal consolidation, pleural effusion or pneumothorax. Heart and Mediastinum: The cardiac silhouette is not enlarged. The mediastinal contours are unremarkable. Bones: No suspicious osseous lesion. IMPRESSION: No evidence of acute cardiopulmonary disease. Referred By: Interpreted By: Lauryn Ruby MD, 12/05/2023 6:41 AM ED Course / Medical Decision Making Medical Decision Making Patient presenting with chest pain that worsens with cough and congestion. She was diagnosed with the flu a couple of days ago. She is on Tamiflu. Saturating 96% on room air. PERC negative. Will get chest x-ray. Will reassess Chest x-ray showed no acute pathology. Patient reassured. She reports feeling better. Will discharge on muscle relaxants and was told to take ibuprofen and Tylenol to follow-up with her PCP. Amount and/or Complexity of Data Reviewed External Data Reviewed: notes. Details: Old chart reviewed Radiology: ordered and independent interpretation performed. Decision-making details documented in ED Course. ECG/medicine tests: ordered and independent interpretation performed. Decision- making details documented in ED Course. Details: Rhythm strip ordered and interpreted by myself: NSR, HR 71, no ectopy Risk OTC drugs. Prescription drug management. Decision regarding hospitalization. ED Course as of 12/05/23 0700 Shruti Dec 05, 2023 0545 EKG--no STEMI, PVCs in [facility]--interp by me. [CL] ED Course User Index [CL] Isabelle Andrade DO Pulse Ox Interpretation: Saturation: 96 (%) Oxygen Delivery: Room air Interpretation: No acute hypoxia at this time. Rhythm strip interpretation: Rhythm sinus rate 71. No ectopy. Data reviewed: All current, pertinent and timely studies (laboratory, imaging, and procedures) wereordered and results reviewed by No att. providers found unless otherwise noted. Triage notes and available nursing notes reviewed. Previous medical record reviewed when available. Repeat vital signs reviewed. Medications fluorescein (FLUORETS) 1 MG ophthalmic strip ( Not Given 12/05/23 0689) Clinical Impression Influenza (Primary) Costochondritis Discharge Medication List as of 12/05/2023 6:50 AM START taking these medications Details cyclobenzaprine (FLEXERIL) 5 MG tablet Take 1 tablet (5 mg total) by mouth 3 (three) times daily asneeded for Muscle Spasms., Starting Shruti 12/05/2023, Until 12/15/2023 at 2359, Eprescribe Class: Eprescribe Pharmacy: [id number] AT [address] (Ph #: [phone]) Disposition: Discharge Follow-Up: STEVE BENITEZ MD I, Rosita Mejia, acting as a scribe, am personally taking down the notes in the presence of Ruben Thornton MD. Take no action on this note until reviewed and authenticated by the physician. Ruben Thornton MD 12/05/23 0700 * Charo Marie RN - 12/05/2023 5:46 AM CDT Patient arrives with chest pain with coughing. Patient was dx with the flu on Saturday and reports she is still having chills and body aches at this time. documented in this encounter Plan of Treatment Not on file documented as of this encounter Procedures Procedure Name Priority Date/Time Associated Diagnosis Comments XR CHEST PORTABLE STAT 12/05/2023 6:4 0 AM CDT ECG 12-LEAD Routine 12/05/2023 5:43 AM CDT documented in this encounter Results * XR CHEST PORTABLE (12/05/2023 6:40 AM CDT) Anatomical Region Laterality Modality Chest Radiographic Monae ging 12/05/2023 6:41 AM CDT Impressions 12/05/2023 6:42 AM CDT IMPRESSION: No evidence of acute cardiopulmonary disease. Referred By: ?? Interpreted By: Lauryn Ruby MD, 12/05/2023 6:41 AM Narrative 12/05/2023 6:42 AM CDT INDICATION: Chest pain. COMPARISON: Chest radiograph 12/02/2023. TECHNIQUE: Single frontal view of the chest. FINDINGS: Lungs: There is no focal consolidation, pleural effusion or pneumothorax. Heart and Mediastinum: The cardiac silhouette is not enlarged. The mediastinal contours are unremarkable. Bones: No suspicious osseous lesion. Procedure Note Lauryn Ruby MD - 12/05/2023 INDICATION: Chest pain. COMPARISON: Chest radiograph 12/02/2023. TECHNIQUE: Single frontal view of the chest. FINDINGS: Lungs: There is no focal consolidation, pleural effusion orpneumothorax. Heart and Mediastinum: The cardiac silhouette is not enlarged. Themediastinal contours are unremarkable. Bones: No suspicious osseous lesion. IMPRESSION: No evidence of acute cardiopulmonary disease. Referred By: Interpreted By: Lauryn Ruby MD, 12/05/2023 6:41 AM Ruben Thornton MD GENERAL IMAGING Final Result * ECG 12 lead (12/05/2023 5:43 AM CDT) 12/05/2023 5:43 AM CDT Narrative [facility] - 12/05/2023 10:04 PM CDT ?[facility] ? [address] [place] ? Test Date: ?2023-12-05 Pat Name: ? SARITHA DUNLAP ?Department: ?? 41 ? Room: ? Gender: ? Female ? Physical Therapy Professor: ?? [id number] : ?1985 ? Requested By: ISABELLE ANDRADE Order Number: [id number] ? Reading MD: ?? Nito Garcia ? Measurements Intervals ?[place] ? Rate: ? 81 ? P: ?49 NV: ? 156 ?QRS: ?4 QRSD: ? 85 ? T: ?59 QT: ? 372 ? QTc: ?434 ? Interpretive Statements SINUS RHYTHM WITH FREQUENT SUPRAVENTRICULAR PREMATURE COMPLEXES IN A BIGEMINAL PATTERN POSSIBLE RIGHT VENTRICULAR CONDUCTION DELAY ??[RSR (QR) IN V1/V2] NONSPECIFIC T-WAVE ABNORMALITY ABNORMAL RHYTHM ECG Compared to ECG 04/19/2021 09:50:34 T-wave abnormality now present Procedure Note Nito Garcia MD - 12/05/[address] [facility] Test Date: 2023-12-05 Pat Name: SARITHA DUNLAP Department: 41 Room: Gender: Female Physical Therapy Professor: [id number] : 1985 Requested By: ISABELLE ANDRADE Order Number: [id number] Reading MD: Nito Garcia Measurements Intervals [place] Rate: 81 P: 49 NV: 156 QRS: 4 QRSD: 85 T: 59 QT: 372 QTc: 434 Interpretive Statements SINUS RHYTHM WITH FREQUENT SUPRAVENTRICULAR PREMATURE COMPLEXES IN A BIGEMINAL PATTERN POSSIBLE RIGHT VENTRICULAR CONDUCTION DELAY [RSR (QR) IN V1/V2] NONSPECIFIC T-WAVE ABNORMALITY ABNORMAL RHYTHM ECG Compared to ECG 04/19/2021 09:50:34 T-wave abnormality now present Ruben Thornton MD ECG ORDERABLES Final Result [facility] documented in this encounter Visit Diagnoses Diagnosis Influenza- Primary Influenza with other respiratory manifestations 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
--- OUTSIDE RECORDS SUMMARY | 2024-09-09 00:48 | XMS_ITS | Encounter Summary ---
Author Organization [facility] Address [address] [place] [address]. 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
--- OUTSIDE RECORDS SUMMARY | 2024-09-09 00:48 | XMS_ITS | Encounter Summary ---
Author Organization [facility] Address [address] [place] [address]. 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 No / Unsure 04/19/2021 9:42 AM CDT documented as of this encounter Plan of Treatment Not on file documented as of this encounter Visit Diagnoses Not on filedocumented in this encounter Care Teams Document Clerk Relationship Specialty Start Date End Date Steve Benitez MD PCP - General INTERNAL MEDICINE 09/27/18 documented as of this encounter
--- OUTSIDE RECORDS SUMMARY | 2024-09-09 00:48 | XMS_ITS | Encounter Summary ---
Author Organization [facility] Address [address] [place] [address]. [place], [place] [id number] [place] [id number] Care Team Providers Care Melt Room Operator Name Role Phone Steve Benitez MD Primary Care Provider [phone] Reason for Referral * Imaging (Emergency) - Closed Specialty Diagnoses / Procedures Referred By Christina mcnally Referred To Contact RADIOLOGY Procedures CTA CHEST Kaylan Pendleton FNP [address] [address] Phone: tel: fax: Referral ID Status Reason Start Date Expiration Date Visits Re quested Visits Authorized [id number] Closed 04/19/2021 05/20/2022 1 1 Reason for Visit * Reason Comments Musculoskeletal Pain Encounter Details Date Type Department Care Team (Late st Contact Info) Description 04/19/2021 9:44 AM CDT - 04/19/2021 12:51 PM CDT Emergency [facility] [place], [place] [id number] Kaylan Pendleton FNP [address] [id number] Musculoskeletal Pain Discharge Disposition: Home or Self Care [...] on file Legal 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 No / Unsure 04/19/2021 9:42 AM CDT documented as of this encounter Last Filed Vital Signs Vital Sign Reading Time Taken Comments Blood Pressure 137/102 04/19/2021 12:04 PM CDT Pulse 84 04/19/2021 12:04 PM CDT Temperature 37 ??C (98.6 ??F) 04/19/2021 10:04 AM CDT Respiratory Rate 18 04/19/2021 12:04 PM CDT Oxygen Saturation 100% 04/19/2021 12:04 PM CDT Inhaled Oxygen Concentration - - Weight 83 kg (183 lb) 04/19/2021 10:04 AM CDT Height 160 cm (5' 3 ) 04/19/2021 10:04 AM CDT Body Mass Index 32.42 04/19/2021 10:04 AM CDT documented in this encounter Discharge Instructions * Discharge Instructions* JULIO Joyce - 04/19/2021 12:35 PM CDT Take medications as directed and follow discharge instructions carefully. Call the office of your primary care for the office today to schedule a follow-up appointment. Return to the emergency department for any worsening of symptoms. * Attachments The following attachments cannot be sent through Care Everywhere. * Chest Pain That Is Not Caused by the Heart Discharge Instructions (Grenadian) * Muscle Strain Discharge Instructions (Grenadian) documented in this encounter Medications at Time [...] TK 1 T PO QD 0 07/05/2018 cyclobenzaprine 10 MG tablet Take 1 tablet (10 mg total) by mouth 3 (three) times daily as needed. 30 tablet 04/19/2021 04/29/2021 lidocaine 5 % Place 1 patch onto the skin daily for 30 days. Remove & Discard patch within 12 hours or as directed by 30 patch 04/19/2021 05/19/2021 predniSONE 20 MG tablet Take 1 tablet (20 mg total) by mouth 2 (two) times daily for 5 days. 10 tablet 04/19/2021 04/24/2021 documented as of this encounter ED Notes * JULIO Joyce - 04/19/2021 10:06 AM CDTAssociated Order(s): EKG Reading Chief Complaint Chief Complaint Patient presents with ??? Musculoskeletal Pain History of Present Illness 35 y f who presents with chest pain that radiates to left scapular region. Worse with movement and palpation, painful when lying down, unable to get comfortable. Did help a friend move furniture but states pain started prior to that. Pt is nad. Medical History ALLERGIES: No Known Allergies MEDICATIONS: Prior to Admission medications Medication Sig Start Date End Date Taking? Authorizing Provider cyclobenzaprine 10 MG tablet Take 1 tablet (10 mg total) by mouth 3 (three) times daily as needed. 04/19/21 04/29/21 Yes JULIO Joyce lidocaine 5 % Place 1 patch onto the skin daily for 30 days. Remove & Discard patch within 12 hours or as directed by 04/19/21 05/19/21 Yes JULIO Joyce predniSONE 20 MG tablet Take 1 tablet (20 mg total) by mouth 2 (two) times daily for 5 days. 04/19/21 04/24/21 Yes JULIO Joyce B Complex Vitamins (B-COMPLEX/B-12 OR) Doc Abstract estradiol 0.1 MG/24HR Place 1 patch onto the skin once a week. Doc Abstract ferrous sulfate, 65 mg elemental, 325 (65 FE) MG tablet Take 325 mg by mouth daily with breakfast. Doc Abstract montelukast 10 MG tablet Take 10 mg by mouth nightly at bedtime. Doc Abstract multivitamin tablet TK 1 T PO QD 07/05/18 Doc Abstract PAST MEDICAL HISTORY: Past Medical History: Diagnosis Date ??? Asthma PAST SURGICAL HISTORY: Past Surgical History: Procedure Laterality Date ??? TUBAL LIGATION FAMILY HISTORY: Family History Problem Relation Name Age of Onset ??? Hypertension Mother SOCIAL HISTORY: Social History Tobacco Use ??? Smoking status: Never Smoker ??? Smokeless tobacco: Never Used Substance Use Topics ??? Alcohol use: No ??? Drug use: No Review of Systems Review of Systems Constitutional: Negative for chills, fatigue and fever. HENT: Negative for congestion, ear pain, postnasal drip, rhinorrhea, sinus pressure, sinus pain andsore throat. Eyes: Negative for pain. Respiratory: Negative for cough, chest tightness, shortness of breath and wheezing. Cardiovascular: Positive for chest pain. Negative for palpitations. Gastrointestinal: Negative for abdominal pain, diarrhea, nausea and vomiting. Genitourinary: Negative for dysuria, flank pain, frequency and urgency. Musculoskeletal: Positive for back pain. Negative for neck pain. Skin: Negative for rash. All other systems reviewed and are negative. Physical Exam Filed Vitals: 04/19/21 1004 04/19/21 1204 BP: 125/87 (!) 137/102 Pulse: 71 84 Resp: 18 18 Temp: 98.6 ??F (37 ??C) TempSrc: Oral SpO2: 100% 100% Weight: 83 kg (183 lb) Height: 5' 3 (1.6 m) Physical Exam Vitals and nursing note reviewed. Constitutional: General: She is not in acute distress. Appearance: Normal appearance. She is well-developed and normal weight. She is not ill-appearing. HENT: Head: Normocephalic. Right Ear: External ear normal. Left Ear: External ear normal. Nose: Nose normal. Mouth/Throat: Mouth: Mucous membranes are moist. Pharynx: Oropharynx is clear. Eyes: Conjunctiva/sclera: Conjunctivae normal. Pupils: Pupils are equal, round, and reactive to light. Cardiovascular: Rate and Rhythm: Normal rate and regular rhythm. Pulses: Normal pulses. Heart sounds: Normal heart sounds. Pulmonary: Effort: Pulmonary effort is normal. Breath sounds: Normal breath sounds. Abdominal: General: Bowel sounds are normal. Palpations: Abdomen is soft. Musculoskeletal: General: Tenderness (chest wall, left trapezius) present. Normal range of motion. Cervical back: Normal range of motion and neck supple. Skin: General: Skin is warm and dry. Capillary Refill: Capillary refill takes less than 2 seconds. Neurological: General: No focal deficit present. Mental Status: She is alert and oriented to person, place, and time. Psychiatric: Behavior: Behavior normal. Thought Content: Thought content normal. Judgment: Judgment normal. 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2 81.0 - 99.0 FL MCH 30.1 27.0 - 31.0 PG MCHC 32.0 32.0 - 36.0 G/DL RDW 13.5 11.5 - 14.5 % PLT 172 130 - 400 x10'3/uL MPV 11.9 9.3 - 12.2 FL DIFFERENTIAL TYPE MANUAL DIFFERENTIAL SEG NEUTROPHILS 73 % LYMPHOCYTES 19 % MONOCYTES 4 % EOSINOPHILS 4 % ABS. NEUTROPHIL COUNT 5.26 1.80 - 7.70 x10'3/uL ABS.LYMPHOCYTES CALCULATED 1.37 1.00 - 4.80 x10'3/uL ABS. MONOCYTES CALCULATED 0.29 0.24 - 0.86 x10'3/uL ABS. EOSINOPHIL CALCULATED 0.29 0.04 - 0.36 x10'3/uL RBC MORPHOLOGY SLIDE REVIEWED LARGE PLATELET 1+ PLT EST. ADEQUATE COMPREHENSIVE METABOLIC PANEL Result Value Ref Range GLUCOSE 81 70 - 99 MG/DL BUN 12 7 - 18 MG/DL CREATININE S/P/B 0.65 0.55 - 1.02 MG/DL SODIUM 138 136 - 145 MMOL/L POTASSIUM 4.0 3.5 - 5.1 MMOL/L CHLORIDE S/P/B 109 (H) 100 - 108 MMOL/L CO2 25.9 21 - 32 MMOL/L CALCIUM 8.8 8.5 - 10.1 MG/DL BILIRUBIN TOTAL S/P/B 0.4 0.2 - 1.2 MG/DL TOTAL PROTEIN S/P/B 7.7 6.4 - 8.2 G/DL ALBUMIN S/P/B 3.3 (L) 3.4 - 5.0 G/DL AST 13 (L) 15 - 37 U/L ALT 22 14 - 55 U/L ALKALINE PHOSPHATASE S/P/B 48 (L) 50 - 136 U/L ANION GAP 3.1 (L) 5 - 15 MMOL/L BUN CREATININE RATIO 18.4 6 - 26 A/G RATIO 0.8 (L) 1.0 - 2.0 RATIO eGFR Non-Afr. Amer. >90 >90 ML/MIN/1.73 M2 eGFR Afr. Amer. >90 >90 ML/MIN/1.73 M2 D-DIMER, QUANTITATIVE Result Value Ref Range D-DIMER 657 (HH) 0 - 500 ng[FEU]/mL IMAGING STUDIES CTA CHEST Final Result by User, [id number] (04/19 1222) EXAMINATION: CTA CHEST WITH CONTRAST, PULMONARY EMBOLISM CLINICAL HISTORY: PE SUSPECTED, LOW/INTERMEDIATE PROB, POSITIVE D-DIMER COMPARISON: None TECHNIQUE: Computed tomography angiography was performed of the chest after administration of intravenous contrast, Isovue-370, according to pulmonary embolism protocol. Maximum intensity projection images were obtained. A dose lowering technique was used for this procedure, which may include, but is not limited to, dose reduction technique, automated exposure control, the use of iterative reconstruction, and ALARA (As Low As Reasonably Achievable) / Image Gently techniques. FINDINGS: Expiration images of chest. Dependent atelectasis. No suspicious lung mass or consolidation. Linear atelectasis/scarring, lingula and right middle lobe. No pneumothorax. No pleural effusion. Normal heart size. No significant pericardial effusion. No pathologic filling defects in the pulmonary artery. No mediastinal hematoma. Postsurgical changes in the stomach. Cholelithiasis. No destructive bone lesions. IMPRESSION: 1. No acute pulmonary embolism. 2. Cholelithiasis. Referred By: KAYLAN PENDLETON Interpreted By: Mason Gould MD, 04/19/2021 12:16 PM XR CHEST PA+LAT Final Result by User, [id number] (04/19 1048) Examination: XR CHEST PA+LAT Exam time: 04/19/2021 10:34 AM Clinical history: Chest pain Comparison: No prior exam Technique: Upright PA and lateral views Findings: Cardiac silhouette and pulmonary vasculature are within normal limits. Lungs appear clear. No evidence of pleural reaction or effusion. No evidence of peribronchial cuffing or bronchial wall thickening. Overall, no radiographic evidence of active chest disease. IMPRESSION: No radiographic evidence of active chest disease. Referred By: KAYLAN PENDLETON Interpreted By: Nito Lizarraga MD, 04/19/2021 10:38 AM EKG Reading Date/Time: 04/19/2021 8:53 PM Performed by: JULIO Joyce Authorized by: JULIO Joyce Interpreted by ED physician: kaylan brooke-. Rhythm: sinus rhythm Rate: normal Rate comments: 73 ST Segments: ST segments normal Clinical impression comment: no acute st/t wave changes ED Course / Medical Decision Making MDM Number of Diagnoses or Management Options Amount and/or Complexity of Data Reviewed Clinical lab tests: ordered and reviewed Tests in the radiology section of CPT??: ordered and reviewed Obtain history from someone other than the patient: yes Review and summarize past medical records: yes Discuss the patient with other providers: yes Independent visualization of images, tracings, or specimens: yes Patient Progress Patient progress: improved ED Course as of Apr 19 2055 Wed Apr 19, 2021 1124 D dimer elevated, pt getting saline lock and CTA chest ordered. Pt updated on poc. 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 Reports pain increases when movingarm. States she was lifting boxes two weeks ago when pain began. Denies any SOB at this time. Denies any cardiac history. * JULIO Joyce - 04/19/2021 9:48 AM CDT [place], [place] EMERGENCY DEPARTMENT ENCOUNTER Medical Screening Examination 04/19/21 9:48 AM Chief Complaint : Musculoskeletal Pain HPI : Saritha Dunlap is a 35-year-old female who presents with chest pain, hx of asthma. Vital Signs: There were no vitals filed for this visit. Physical exam: A brief physical exam was completed to facilitate/expedite patient care. Butcher findings include: Plan: JULIO Joyce 04/19/21 0948 Cosigned by Laurie Phelps MD at 04/20/2021 11:39 PM CDT documented in this encounter Plan of Treatment Not on file documented as of this encounter Procedures Procedure Name Priority Date/Time Associated Diagnosis Comments CTA CHEST STAT 04/19/2021 11:42 AM CDT XR CHEST PA+LAT STAT 04/19/2021 10:34 AM CDT COMPREHENSIVE METABOLIC PANEL STAT 04/19/2021 10:09 AM CDT D-DIMER, QUANTITATIVE STAT 04/19/2021 10:09 AM CDT CBC W/DIFF AUTOMATED STAT 04/19/2021 10:09 AM CDT ELECTROCARDIOGRAM REPORT Routine 021 10:06 AM CDT ECG 12-LEAD Routine 04/19/2021 9:50 AM CDT documented in this encounter Results * CTA CHEST (04/19/2021 11:42 AM CDT) Anatomical Region Laterality Modality Chest Computed Tomogra phy 04/19/2021 12:1 6 PM CDT Impressions 04/19/2021 12:21 PM CDT IMPRESSION: 1. No acute pulmonary embolism. 2. Cholelithiasis. Referred By: KAYLAN PENDLETON Interpreted By: Mason oGuld MD, 04/19/2021 12:16 PM Narrative 04/19/2021 12:21 PM CDT EXAMINATION: CTA CHEST WITH CONTRAST, PULMONARY EMBOLISM CLINICAL HISTORY: PE SUSPECTED, LOW/INTERMEDIATE PROB, POSITIVE D-DIMER COMPARISON: None TECHNIQUE: Computed tomography angiography was performed of the chest after administration of intravenous contrast, Isovue-370, according to pulmonary embolism protocol. Maximum intensity projection images were obtained. A dose lowering technique was used for this procedure, which may include, but is not limited to, dose reduction technique, automated exposure control, the use of iterative reconstruction, and ALARA (As Low As Reasonably Achievable) / Image Gently techniques. FINDINGS: Expiration images of chest. Dependent atelectasis. No suspicious lung mass or consolidation. Linear atelectasis/scarring, lingula and right middle lobe. No pneumothorax. No pleural effusion. Normal heart size. No significant pericardial effusion. No pathologic filling defects in the pulmonary artery. No mediastinal hematoma. Postsurgical changes in the stomach. Cholelithiasis. No destructive bone lesions. Procedure Note Mason Gould MD - 04/19/2021 EXAMINATION: CTA CHEST WITH CONTRAST, PULMONARY EMBOLISM CLINICAL HISTORY: PE SUSPECTED, LOW/INTERMEDIATE PROB, POSITIVE D-DIMER COMPARISON: None TECHNIQUE: Computed tomography angiography was performed of the chestafter administration of intravenous contrast, Isovue-370, according topulmonary embolism protocol. Maximum intensity projection images wereobtained. A dose lowering technique was used for this procedure, which mayinclude, but is not limited to, dose reduction technique, automatedexposure control, the use of iterative reconstruction, and ALARA (As LowAs Reasonably Achievable) / Image Gently techniques. FINDINGS: Expiration images of chest. Dependent atelectasis. No suspicious lung massor consolidation. Linear atelectasis/scarring, lingula and right middlelobe. No pneumothorax. No pleural effusion. Normal heart size. Nosignificant pericardial effusion. No pathologic filling defects in thepulmonary artery. No mediastinal hematoma. Postsurgical changes in thestomach. Cholelithiasis. No destructive bone lesions. IMPRESSION: 1. No acute pulmonary embolism. 2. Cholelithiasis. Referred By: KAYLAN PENDLETON Interpreted By: Mason Gould MD, 04/19/2021 12:16 PM Kaylan Pendleton EX CHEF CT Final Res ult * XR CHEST PA+LAT (04/19/2021 10:34 AM CDT) Anatomical Region Laterality Modality Chest Radiographic Monae ging 04/19/2021 10:3 8 AM CDT Impressions 04/19/2021 10:39 AM CDT IMPRESSION: No radiographic evidence of active chest disease. Referred By: KAYLAN PENDLETON Interpreted By: Nito Lizarraga MD, 04/19/2021 10:38 AM Narrative 04/19/2021 10:39 AM CDT Examination: XR CHEST PA+LAT Exam time: 04/19/2021 10:34 AM Clinical history: Chest pain Comparison: No prior exam Technique: Upright PA and lateral views Findings: Cardiac silhouette and pulmonary vasculature are within normal limits. Lungs appear clear. No evidence of pleural reaction or effusion. No evidence of peribronchial cuffing or bronchial wall thickening. Overall, no radiographic evidence of active chest disease. Procedure Note Nito Lizarraga MD - 04/19/2021 Examination: XR CHEST PA+LAT Exam time: 04/19/2021 10:34 AM Clinical history: Chest pain Comparison: No prior exam Technique: Upright PA and lateral views Findings: Cardiac silhouette and pulmonary vasculature are within normallimits. Lungs appear clear. No evidence of pleural reaction or effusion.No evidence of peribronchial cuffing or bronchial wall thickening.Overall, no radiographic evidence of active chest disease. IMPRESSION: No radiographic evidence of active chest disease. Referred By: KAYLAN PENDLETON Interpreted By: Nito Lizarraga MD, 04/19/2021 10:38 AM Kaylan Pendleton EX CHEF GENERAL IMAGING Final Res ult * (ABNORMAL) D-DIMER, QUANTITATIVE (04/19/2021 10:09 AM CDT) D-DIMER 657(HH) 0 - 500 ng{FEU}/mL 04/19/2021 10:49 AM CDT [facility] Comment: D-Dimer values less than or equal to 500 ng/mL FEU have a negative predictive value of >95% for exclusion of deep vein thrombosis and pulmonary embolism. In patients over 50 (who tend to have higher normal baseline D-Dimer values), recent studies suggest age-adjusted D-Dimer cutoff values (calculated as: age [years] x 10 ng/mL) result in equivalent outcomes and no additional false negative findings. Successful Call: DDIMR called 04/19/2021 10:50 AM to EMERGENCY ROOM ([id number]/[facility]) by [id number]. Read Back: Yes 04/19/2021 10:0 9 AM CDT us Kaylan Pendleton EX CHEF LABORATORY Final Res ult [facility] [address] [place] [address], * (ABNORMAL) COMPREHENSIVE METABOLIC PANEL (04/19/2021 10:09 AM CDT) GLUCOSE 81 70 - 99 MG/DL 04/19/2021 10:49 AM CDT [facility] BUN 12 7 - 18 MG/DL 04/19/2021 10:49 AM CDT [facility] CREATININE S/P/B 0.65 0.55 - 1.02 MG/DL 04/19/2021 10:49 AM CDT [facility] SODIUM S/P/B 138 136 - 145 MMOL/L 04/19/2021 10:49 AM CDT [facility] POTASSIUM S/P/B 4.0 3.5 - 5.1 MMOL/L 04/19/2021 10:49 AM CDT [facility] CHLORIDE S/P/B 109(H) 100 - 108 MMOL/L 04/19/2021 10:49 AM CDT [facility] CO2 25.9 21 - 32 MMOL/L 04/19/2021 10:49 AM CDT [facility] CALCIUM S/P/B 8.8 8.5 - 10.1 MG/DL 04/19/2021 10:49 AM CDT [facility] BILIRUBIN TOTAL S/P/B 0.4 0.2 - 1.2 MG/DL 04/19/2021 10:49 AM CDT [facility] Comment: THIS ASSAY IS NOT RECOMMENDED FOR PATIENTS UNDERGOING TREATMENT WITH ELTROMBOPAG DUE TO THE POTENTIAL FOR FALSELY ELEVATED RESULTS. TOTAL PROTEIN S/P/B 7.7 6.4 - 8.2 G/DL 04/19/2021 10:49 AM T [facility] ALBUMIN S/P/B 3.3(L) 3.4 - 5.0 G/DL 04/19/2021 10:49 AM T [facility] AST 13(L) 15 - 37 U/L 04/19/2021 10:49 AM T [facility] ALT 22 14 - 55 U/L 04/19/2021 10:49 [facility] ALKALINE PHOSPHATASE S/P/B 48(L) 50 - 136 U/L 04/19/2021 10:49 [facility] ANION GAP 3.1(L) 5 - 15 MMOL/L 04/19/2021 10:49 AM T [facility] BUN CREATININE RATIO 18.4 6 - 26 04/19/2021 10:49 [facility] A/G RATIO 0.8(L) 1.0 - 2.0 RATIO 04/19/2021 10:49 AM [facility] EGFR NON-AFR. AMER. >90 >90 ML/MIN/1.7 3 M2 04/19/2021 10:49 AM T [facility] EGFR AFR. AMER. >90 >90 ML/MIN/1.7 3 M2 04/19/2021 10:49 AM [facility] Comment: NOTE: eGFR is not calculated for patients <18 years of age. This is an estimated GFR (CKD EPI) and should not be used for calculating drug doses. 04/19/2021 10:0 9 AM CDT Kaylan Tatumpson EX CHEF LABORATORY Final Res ult [facility] [address] [place] [address], * (ABNORMAL) CBC W/DIFF AUTOMATED (04/19/2021 10:09 AM CDT) [facility] WBC 7.2 4.5 - 11.0 x10'3/uL 04/19/2021 10:43 AM CDT [facility] RBC 4.15(L) 4.20 - 5.40 x10'6/uL 04/19/2021 10:43 AM CDT [facility] HGB 12.5 12.0 - 16.0 G/DL 04/19/2021 10:43 AM CDT [facility] HCT 39.1 38.0 - 48.0 % 04/19/2021 10:43 AM CDT [facility] MCV 94.2 81.0 - 99.0 FL 04/19/2021 10:43 AM CDT [facility] MCH 30.1 27.0 - 31.0 PG 04/19/2021 10:43 AM CDT [facility] MCHC 32.0 32.0 - 36.0 G/DL 04/19/2021 10:43 AM CDT [facility] RDW 13.5 11.5 - 14.5 % 04/19/2021 10:43 AM CDT [facility] PLT 172 130 - 400 x10'3/uL 04/19/2021 10:43 AM CDT [facility] MPV 11.9 9.3 - 12.2 FL 04/19/2021 10:43 AM CDT [facility] DIFFERENTIAL TYPE MANUAL DIFFERENTIAL 04/19/2021 10:52 AM CDT [facility] SEG NEUTROPHILS 73 % 10:52 AM CDT [facility] LYMPHOCYTES 19 % 04/19/2021 10:52 AM CDT [facility] MONOCYTES 4 % 04/19/2021 10:52 AM CDT [facility] EOSINOPHILS 4 % 04/19/2021 10:52 AM CDT [facility] ABS. NEUTROPHILS CALCULATED 5.26 1.80 - 7.70 x10'3/uL 04/19/2021 10:52 AM CDT [facility] ABS.LYMPHOCYTES CALCULATED 1.37 1.00 - 4.80 x10'3/uL 04/19/2021 10:52 AM CDT [facility] ABS. MONOCYTES CALCULATED 0.29 0.24 - 0.86 x10'3/uL 04/19/2021 10:52 AM CDT [facility] ABS. EOSINOPHIL CALCULATED 0.29 0.04 - 0.36 x10'3/uL 04/19/2021 10:52 AM CDT [facility] RBC MORPHOLOGY SLIDE REVIEWED 2020 10:52 AM CDT [facility] LARGE PLATELET 1+ 04/19/2021 10:52 AM CDT [facility] PLT EST. ADEQUATE 04/19/2021 10:52 AM CDT [facility] 04/19/2021 10:0 9 AM CDT us Kaylan Pendleton EX CHEF LABORATORY Final Res ult [facility] [address] [place] [address], [place] [phone] * EKG Reading (04/19/2021 10:06 AM CDT) Narrative Geldmacher, Laurie J, MD - 04/19/2021 10:06 AM CDT JULIO Joyce ? 04/19/2021 ??8:55 PM EKG Reading Date/Time: 04/19/2021 8:53 PM Performed by: JULIO Joyce Authorized by: JULIO Joyce Interpreted by ED physician: kaylan brooke-bc. Rhythm: sinus rhythm Rate: normal Rate comments: 73 ST Segments: ST segments normal Clinical impression comment: no acute st/t wave changes us Kaylan [facility] [place] [facility] Final Result * ECG 12 lead (04/19/2021 9:50 AM CDT) 04/19/2021 9:50 AM CDT Narrative [facility] - 04/19/2021 11:33 AM CDT ?[facility] [place] ? [address] [place] ? Test Date: ?2021-04-19 Pat Name: ? EDGARDOSUDEEP DUNLAP ?Department: ? Room: ? INPR Gender: ? Female ? 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 Requested By: KAYLAN PENDLETON Order Number: [id number] ? Reading MD: ?? Anjum Seals ? Measurements Intervals ?[place] ? Rate: ? 73 ? P: ?65 MI: ? 149 ?QRS: ?12 QRSD: ? 96 ? T: ?21 QT: ? 385 ? QTc: ?427 ? Interpretive Statements SINUS RHYTHM POSSIBLE LEFT ATRIAL ENLARGEMENT POSSIBLE RIGHT VENTRICULAR CONDUCTION DELAY No previous ECG available for comparison Procedure Note Anjum Seals MD - 04/19/2021 [facility] [place] [address] [place] Test Date: 2021-04-19 Pat Name: SARITHA DUNLAP Department: Room: [facility] Gender: Female Weld Inspector: : [id number] Requested By: KAYLAN PENDLETON Order Number: [id number] Tong MD: Anjum Seals Measurements Intervals [place] Rate: 73 P: 65 MI: 149 QRS: 12 QRSD: 96 T: 21 QT: 385 QTc: 427 Interpretive Statements SINUS RHYTHM POSSIBLE LEFT ATRIAL ENLARGEMENT POSSIBLE RIGHT VENTRICULAR CONDUCTION DELAY No previous ECG available for comparison us Kaylan Pendleton EX CHEF ECG ORDERABLES Final Res ult [facility] documented in this encounter Visit Diagnoses Diagnosis Chest wall pain- Primary Painful respiration Trapezius muscle strain, left, initial encounter documented in this encounter Administered Medications Inactive Administered Medications - up to 3 most recent administrations Medication Order MAR Action Action Date Dose Rate Site iopamidol (ISOVUE-370) 76 % injection 80 mL 80 mL, Intravenous, IMG once as needed, Contrast, 1 dose, Starting on Sat04/19/21 at 1142, Until Sat04/19/21 at 1142 Given 04/19/2021 11:42 AM CDT 80 mLs ketorolac (TORADOL) injection 30 mg 30 mg, Intravenous, Once, 1 dose, On Sat04/19/21 at 1200, For IV administration, give over 15 seconds. Given 04/19/2021 12:00 PM CDT 30 mg documented in this encounter Active and Recently Administered Medications Times are shown in CDT. Scheduled Medication Order 04/17/2021 04/18/2021 04/19/2021 ketorolac (TORADOL) injection 30 mg (COMPLETED) 30 mg, Intravenous, Once, 1 dose, On Sat04/19/21 at 1200, For IV administration, give over 15 seconds. 1200 (Given - Provid er: Farrah Duron RN) PRN Medication Order 04/17/2021 04/18/2021 04/19/2021 iopamidol (ISOVUE-370) 76 % injection 80 mL (COMPLETED) 80 mL, Intravenous, IMG once as needed, Contrast, 1 dose, Starting on Sat04/19/21 at 1142, Until Sat04/19/21 at 1142 1142 (Given - Provid er: Marge Langston RDMS) documented in this encounter Care Teams Melt Room Operator Relationship Specialty Start Date End Date Steve Benitez MD PCP - General INTERNAL MEDICINE 09/27/18 documented as of this encounter
--- OUTSIDE RECORDS SUMMARY | 2024-09-09 00:48 | XMS_ITS | Data Portability ---
Author Organization [facility], [employer] Address [address] [address] Care Team Providers Care General Office Clerk Name Role Phone ISRAEL SCHUSTER Allergist/Pediatric Pulmonologist STEVE SHAHID Primary Care Provider [phone] Assessment Encounter Date Assessment Date Assessment LastModified by Organization Details LastModified Time 05/04/2021 05/04/2021 Patient presented for follow up. Studies ordered as below. Discussed plan with patient/careg iver, who expressed understanding . Follow up as noted below. [email or web address] Not available 05/04/2021 16:37:59 02/26/2024 02/26/2024 Patient presented for follow up. Studies ordered as below. Discussed plan with patient/careg honger, who expressed understanding . Follow up as noted below. [email or web address] Not available 02/26/2024 15:07:31 05/28/2024 05/28/2024 Patient presented for follow up. Studies ordered as below. Discussed plan with patient/careg iver, who expressed understanding . Follow up as noted below. Not available 05/28/2024 15:09:17 08/26/2024 08/26/2024 Patient presented for follow up. Studies ordered as below. Discussed plan with patient/careg honger, who expressed understanding . Follow up as noted below. Not available 08/26/2024 15:11:29 Plan of Treatment Reminders Order Date Submit Date Provider Last Modified By Organization Details Last Modified Time Details Appointments ESTABLISH ED PATIENT 15 2024 02:15P Jaylen Shahid MD Not available Not available Not available Lab lipid panel, serum 2020 [email or web address] Not available 05/11/2021 08:38:22 hepatitis C Ab, serum 2020 021 [email or web address] Not available 05/11/2021 08:38:22 H pylori Ag, stool 2020 021 [email or web address] Not available 05/11/2021 08:38:22 CMP, serum or plasma 2020 021 [email or web address] Not available 05/11/2021 08:38:21 CBC 2020 [email or web address] Not available 05/11/2021 08:38:22 TSH, serum or plasma 2020 [email or web address] Not available 05/11/2021 08:38:23 vitamin B12, serum 2020 [email or web address] Not available 05/11/2021 08:38:22 vitamin D, 25-hydrox y, total, serum 2020 [email or web address] Not available 05/11/2021 08:38:22 magnesium , QN, serum or plasma 2020 [email or web address] Not available 05/11/2021 08:38:22 urinalysi s, dipstick 2023 024 [facility], [facility], [address], [place], [address], 12/17/2023 15:19:49 lipid panel w/ direct LDL, serum 2023 024 [facility], [address], [place], [address], 12/24/2023 04:11:07 hepatitis C Ab, serum 2023 024 [facility], [address], [place], [address], 12/24/2023 04:11:07 ige, total, serum 2023 024 [facility], [address], [place], [address], 12/24/2023 04:11:05 CBC w/ auto diff 2023 024 [facility], [address], [place], [address], 02/27/2024 15:21:13 H pylori Ag, stool 2023 024 [facility], [address], [place], [address], 12/24/2023 04:11:06 microalbu min/creat inine, mass ratio, urine 2023 024 [facility], [address], [place], [address], 12/17/2023 12:43:01 CMP, serum or plasma 2023 024 [facility], [address], [place], [address], 12/24/2023 04:11:06 CBC 2023 024 [facility], [address], [place], [address], 12/24/2023 04:11:06 vitamin D, 25-hydrox y, total, serum 2023 024 [facility], [address], [place], [address], 12/24/2023 04:11:06 magnesium , QN, serum or plasma 2023 024 [facility], [address], [place], [address], 12/24/2023 04:11:07 vitamin B12 + folate, serum or blood 2023 024 [facility], [address] [facility], [place], [address], 12/17/2023 12:43:01 HbA1c (hemoglob in A1c), blood 2023 024 [facility], [address] [facility], [place], [address], 12/24/2023 04:11:06 TSH, serum or plasma 2023 024 [facility], [address] [facility], [place], [address], 12/24/2023 04:11:06 urinalysi s, dipstick 2023 024 [facility], [facility], [address] [facility] [address], [place], [address], 02/27/2024 15:07:42 CMP, serum or plasma 2023 024 [facility], [address] [facility], [place], [address], 02/27/2024 15:21:14 CBC 2023 024 [facility], [address] [facility], [place], [address], 03/04/2024 04:10:09 vitamin D, 25-hydrox y, total, serum 2023 024 [facility], [address] [facility], [place], [address], 03/04/2024 04:10:09 vitamin B12, serum 2023 024 [facility], [address] [place], [address], 02/27/2024 15:21:16 magnesium , QN, serum or plasma 2023 024 [facility], [address] [place], [address], 03/04/2024 04:10:09 HbA1c (hemoglob in A1c), blood 2023 024 [facility], [address] [facility], [place], [address], 02/27/2024 15:21:12 TSH, serum or plasma 2023 024 [facility], [address] [facility], [place], [address], 03/04/2024 04:10:09 lipid panel w/ direct LDL, serum 2023 024 [facility], [address] [facility], [place], [address], 09/02/2024 04:05:53 hepatitis C Ab, serum 2023 024 [facility], [address] [facility], [place], [address], 09/02/2024 04:05:53 urinalysi s, dipstick 2023 024 [facility], [address] [facility] [address], [place], [address], 08/27/2024 08:55:14 microalbu min/creat inine, mass ratio, urine 2023 024 [facility], [address] [facility], [place], [address], 08/26/2024 15:46:04 CMP, serum or plasma 2023 024 [facility], [address] [place], [address], 09/02/2024 04:05:52 CBC 2023 024 [facility], [address] [place], [address], 09/02/2024 04:05:52 vitamin D, 25-hydrox y, total, serum 2023 024 [facility], [address] [facility], [place], [address], 09/02/2024 04:05:53 magnesium , QN, serum or plasma 2023 024 [facility], [address] [facility], [place], [address], 09/02/2024 04:05:53 vitamin B12, serum 2023 024 [facility], [address] [place] [address], [place], [address], 09/02/2024 04:05:[address] referral 2020 021 amadeo Brice, [facility] , [place], [address], 06/01/2021 08:37:22 gynecolog ist referral 2023 024 FRITZ Laws MD, [address] [facility], [place], [address], 01/14/2024 04:06:[address] referral 2023 024 FRITZ Brice, [facility] , [place], [address], 01/14/2024 04:06:31 physical therapist referral 2023 024 [facility], [address], [place], [address], 03/25/2024 04:12:31 physical therapist referral 2023 024 [facility], [address], [address], [place], [address], 08/26/2024 16:03:19 Procedures None recorded. Surgeries None recorded. Imaging XR, lumbar spine 2023 [facility], [address], [address], [place], [address], 03/11/2024 04:13:25 US, gallbladd er 2023 024 [facility], [address], [address], [place], [address], 06/04/2024 04:05:29 MAMMO, screening , digital, bilateral 2023 [facility], [facility], [place], [address], 09/02/2024 04:05:54 Medication Orders Senna Plus 8.6 mg-50 mg tablet 2023 024 [facility]65912, [address] [place] [address], [id number], 12/17/2023 12:41:[address] 10 mg tablet 2023 024 [facility], [address] [place] [address], [id number], 12/17/2023 12:41:58 albuterol sulfate HFA 90 mcg/actua tion aerosol inhaler 2023 024 [facility] #55271, [address] [place] [address], [id number], 05/28/2024 15:35:13 baclofen 10 mg tablet 2023 024 [facility], [address] [place] [address], [id number], 02/26/2024 15:44:31 meloxicam 7.5 mg tablet 2023 024 [facility] #65345, [address] [place] [address], [id number], 02/26/2024 15:44:29 ketorolac 30 mg/mL (1 mL) injection solution 2023 [email or web address] Not available 04/24/2024 16:52:44 Zepbound 2.5 mg/0.5 mL subcutane ous pen injector 2023 024 [facility] #88959, [address] [place] [address], [id number], 03/19/2024 15:10:45 Senna Plus 8.6 mg-50 mg tablet 2023 024 [facility] #02553, [address] [place] [address], [id number], 05/28/2024 15:43:42 Airsupra 90 mcg-80 mcg/actua tion HFA aerosol inhaler 2023 024 [facility] #89442, [address] [place] [address], [id number], 05/28/2024 15:43:41 Symbicort 160 mcg-4.5 mcg/actua tion HFA aerosol inhaler 2023 024 [facility] #87199, [address] [place] [address], [id number], 05/28/2024 15:43:41 Airsupra 90 mcg-80 mcg/actua tion HFA aerosol inhaler 2023 024 [facility] #84277, [address] [place] [address], [id number], 08/26/2024 15:45:37 phentermi ne 15 mg capsule 2023 [facility] #14223, [address], [place], [id number], 08/26/2024 15:45:44 topiramat e 25 mg tablet 2023 [facility] #88912, [address], [place], [id number], 08/26/2024 15:45:37 Patient TargetsNo targets recorded. Patient Instructions Encounter Date Encounter Id Patient Instructions Last Modified By Organization Details Last Modified Time 05/04/2021 [id number] infection from tattoos: care instructions [email or web address] Not available 05/04/2021 17:04:35 controlling your asthma: care instructions [email or web address] Not available 05/04/2021 17:04:35 learning about asthma mshenouda Not available 05/04/2021 17:04:35 spirometry testing* FRITZ Not available 05/05/2021 10:18:30 high blood pressure: care instructions [email or web address] Not available 05/04/2021 17:04:35 learning about high blood pressure mshenouda Not available 05/04/2021 17:04:35 learning about healthy weight mshenouda Not available 05/04/2021 17:04:35 12/17/2023 [id number] back care and preventing injuries: care instructions [email or web address] Not available 12/17/2023 12:45:02 getting back to normal after low back pain: care instructions mshenouda Not available 12/17/2023 12:45:02 learning about relief for back pain mshenouda Not available 12/17/2023 12:45:02 infection from tattoos: care instructions [email or web address] Not available 12/17/2023 12:41:45 controlling your asthma: care instructions [email or web address] Not available 12/17/2023 12:41:45 learning about asthma mshenouda Not available 12/17/2023 12:41:46 spirometry testing* FRITZ Not available 12/17/2023 15:54:38 high blood pressure: care instructions mshenouda Not available 12/17/2023 12:41:46 learning about high blood pressure mshenouda Not available 12/17/2023 12:41:45 body mass index: care instructions mshenouda Not available 12/17/2023 12:41:46 learning about healthy weight mshenouda Not available 12/17/2023 12:41:47 02/26/2024 [id number] learning about asthma mshenouda Not available 02/26/2024 15:44:21 back care and preventing injuries: care instructions mshenouda Not available 02/26/2024 15:44:22 getting back to normal after low back pain: care instructions mshenouda Not available 02/26/2024 15:44:23 learning about relief for back pain mshenouda Not available 02/26/2024 15:44:21 high blood pressure: care instructions mshenouda Not available 02/26/2024 15:44:22 learning about high blood pressure mshenouda Not available 02/26/2024 15:44:22 body mass index: care instructions mshenouda Not available 02/26/2024 15:44:22 learning about healthy weight mshenouda Not available 02/26/2024 15:44:21 05/28/2024 [id number] learning about asthma mshenouda Not available 05/28/2024 15:43:32 high blood pressure: care instructions mshenouda Not available 05/28/2024 15:43:32 learning about high blood pressure mshenouda Not available 05/28/2024 15:43:32 body mass index: care instructions mshenouda Not available 05/28/2024 15:43:32 learning about healthy weight mshenouda Not available 05/28/2024 15:43:32 08/26/2024 [id number] mammogram: about this test mshenouda Not available 08/26/2024 15:45:21 infection from tattoos: care instructions mshenouda Not available 08/26/2024 15:45:21 high blood pressure: care instructions mshenouda Not available 08/26/2024 15:45:21 learning about high blood pressure mshenouda Not available 08/26/2024 15:45:21 body mass index: care instructions mshenouda Not available 08/26/2024 15:45:21 learning about healthy weight mshenouda Not available 08/26/2024 15:45:21 Reason for Referral Scientific Informatics Project Leader Referral for Scr eening procedure Referring Physician: Steve Shahid, Internal Medicine, Encounter Date: 05/04/2021 Scientific Informatics Project Leader Referral for Ess ential hypertension Referring Physician: Steve Shahid, Internal Medicine, Encounter Date: 12/17/2023 Slot Ambassador Referral for Sc reening for malignant neoplasm of cervix Referring Physician: Steve Shahid, Internal Medicine, Encounter Date: 12/17/2023 Physical Therapist Referral for Low back pain Referring Physician: Steve Shahid, Internal Medicine, Encounter Date: 02/26/2024 Physical Therapist Referral for Lumbago with sciatica Referring Physician: Steve Shahid, Internal Medicine, Encounter Date: 08/26/2024 Results Created Date Observation Date Name Description Value Unit Range Abnormal Flag Note LastModifiedBy Organization Detail LastModifiedTime 05/05/2005/05/2021 mala metry testi ng* Spirometry Not Available [facility], [facility] [address], [place], [address], 05/04/2021 16:57:26 12/17/1912/17/2023 mala metry testi ng* Spirometry Not Available [facility], [facility] [address], [place], [address], 12/17/2023 12:35:27 12/17/1912/17/2023 urina lysis , dipst ick Leukocytes Negati ve Not Available [facility], [facility] [address], [place], [address], 12/17/2023 12:42:15 12/17/1912/17/2023 urina lysis , dipst ick Nitrite negati ve Not Available [employer], [facility] [address], [place], [address], 12/17/2023 12:42:15 12/17/19 24 12/17/2023 urina lysis , dipst ick Urobilinogen [address] [facility], [facility] [address], [place], [address], 12/17/2023 12:42:15 12/17/19 24 12/17/2023 urina lysis , dipst ick Protein Trace Not Available [facility] [address], [place], [address], 12/17/2023 12:42:15 12/17/1912/17/2023 urina lysis , dipst ick pH 7.0 Not Available [facility], [facility] [address], [place], [address], 12/17/2023 12:42:15 12/17/19 24 12/17/2023 urina lysis , dipst ick Blood Negati ve Not Available [facility] [address], [place], [address], 12/17/2023 12:42:15 12/17/19 24 12/17/2023 urina lysis , dipst ick Specific [place] 1.015 Not Available [facility] [address], [place], [address], 12/17/2023 12:42:15 12/17/19 24 12/17/2023 urina lysis , dipst ick Ketone Negati ve Not Available [facility] [address], [place], [address], 12/17/2023 12:42:15 12/17/19 24 12/17/2023 urina lysis , dipst ick Bilirubin Negati ve Not Available [facility], [facility] [address], [place], [address], 12/17/2023 12:42:15 12/17/19 24 12/17/2023 urina lysis , dipst ick Glucose Negati ve Not Available [facility], [facility] [address], [place], [address], 12/17/2023 12:42:15 12/17/19 24 12/17/2023 urina lysis , dipst ick Appearance Cloudy Not Available [facility], [facility] [address] [facility] [address], [place], [address], 12/17/2023 12:42:15 12/17/19 24 12/17/2023 urina lysis , dipst ick Color Yellow Not Available [facility], [facility] [address] [facility] [address], [place], [address], 12/17/2023 12:42:15 02/26/20 24 02/26/2024 HEMOG LOBIN A1C hemoglobin A1C 5.2 % 4.8-5. 6 OSVALDO L RANGE BASED ON JINNY COL 2 (DCCT /NGSP ): Non-D iabet ic: < 5.7% Pre-D iabet es: 5.7 - 6.4% Diabe anny: => 6.5% GLYCE MUKUND CONTR OL: < 7.0% Not Available [facility] [address], [place], [address], 02/27/2024 15:21:12 02/26/20 24 02/26/2024 HEMOG LOBIN A1C estimated average glucose 102 Not Available [facility] [address], [place], [address], 02/27/2024 15:21:12 02/26/20 24 02/26/2024 CBC WITH AUTO- DIFFE RENTI AL WBC 9.3 10*3/ uL 3.4-10 .8 Not Available [facility] [address] [facility] [address], [place], [address], 02/27/2024 15:21:13 02/26/20 24 02/26/2024 CBC WITH AUTO- DIFFE RENTI AL RBC 4.43 10*6/ uL 3.80-5 .30 Not Available [facility] [address], [place], [address], 02/27/2024 15:21:13 02/26/20 24 02/26/2024 CBC WITH AUTO- DIFFE RENTI AL HGB 13.3 g/dL 11.1-1 5.9 Not Available [facility] [address] [facility] [address] [facility] [address], [place], [address], 02/27/2024 15:21:13 02/26/20 24 02/26/2024 CBC WITH AUTO- DIFFE RENTI AL HCT 42.5 % 34.0-4 6.6 Not Available [facility] [address] [facility] [address], [place], [address], 02/27/2024 15:21:13 02/26/20 24 02/26/2024 CBC WITH AUTO- DIFFE RENTI AL MCV 96 fL 79-97 Not Available [facility] [address] [facility] [address], [place], [address], 02/27/2024 15:21:13 02/26/20 24 02/26/2024 CBC WITH AUTO- DIFFE RENTI AL MCH 30.0 pg 26.6-3 3.0 Not Available [facility] [address], [place], [address], 02/27/2024 15:21:13 02/26/20 24 02/26/2024 CBC WITH AUTO- DIFFE RENTI AL MCHC 31.3 g/dL 31.5-3 5.7 low Not Available [facility] [address], [place], [address], 02/27/2024 15:21:13 02/26/20 24 02/26/2024 CBC WITH AUTO- DIFFE RENTI AL RDW 13.8 % 11.5-1 4.5 Not Available [facility] [address], [place], [address], 02/27/2024 15:21:13 02/26/20 24 02/26/2024 CBC WITH AUTO- DIFFE RENTI AL platelets 177 10*3/ uL 150-40 0 Not Available [facility] [address] [place] [address] [address], [place], [address], 02/27/2024 15:21:13 02/26/20 24 02/26/2024 CBC WITH AUTO- DIFFE RENTI AL MPV 13 fL 9-13 Not Available [facility] [address] [place] [address] [address], [place], [address], 02/27/2024 15:21:13 02/26/20 24 02/26/2024 CBC WITH AUTO- DIFFE RENTI AL neutrophils 57.8 % 40.0-7 4.0 Not Available [facility] [address], [place], [address], 02/27/2024 15:21:13 02/26/20 24 02/26/2024 CBC WITH AUTO- DIFFE RENTI AL absolute neutrophils 5.39 10*3/ uL 1.40-7 .00 Not Available [address], [place], [address], 02/27/2024 15:21:13 02/26/20 24 02/26/2024 CBC WITH AUTO- DIFFE RENTI AL lymphocytes 28.2 % 14.0-4 6.0 Not Available [facility] [address] [place] [address] [address], [place], [address], 02/27/2024 15:21:13 02/26/20 24 02/26/2024 CBC WITH AUTO- DIFFE RENTI AL absolute lymphocytes 2.63 10*3/ uL 0.70-3 .10 Not Available [place] [address], [place], [address], 02/27/2024 15:21:13 02/26/20 24 02/26/2024 CBC WITH AUTO- DIFFE RENTI AL monocytes 5.0 % 4.0-12 .0 Not Available [facility] [address], [place], [address], 02/27/2024 15:21:13 02/26/20 24 02/26/2024 CBC WITH AUTO- DIFFE RENTI AL absolute monocytes 0.47 10*3/ uL 0.10-0 .90 Not Available [facility] [address], [place], [address], 02/27/2024 15:21:13 02/26/20 24 02/26/2024 CBC WITH AUTO- DIFFE RENTI AL eosinophils 8.1 % 0.0-5. 0 high Not Available [facility] [address], [place], [address], 02/27/2024 15:21:13 02/26/20 24 02/26/2024 CBC WITH AUTO- DIFFE RENTI AL absolute eosinophils 0.76 10*3/ uL 0.00-0 .40 high Not Available [facility] [address], [place], [address], 02/27/2024 15:21:13 02/26/20 24 02/26/2024 CBC WITH AUTO- DIFFE RENTI AL basophils 0.6 % 0.0-3. 0 Not Available [facility] [address] [place] [address] [address], [place], [address], 02/27/2024 15:21:13 02/26/20 24 02/26/2024 CBC WITH AUTO- DIFFE RENTI AL absolute basophils 0.06 10*3/ uL 0.00-0 .20 Not Available [facility] [address], [place], [address], 02/27/2024 15:21:13 02/26/20 24 02/26/2024 CBC WITH AUTO- DIFFE RENTI AL imm. gran. 0.3 % 0.0-2. 0 Not Available [facility] [address], [place], [address], 02/27/2024 15:21:13 02/26/20 24 02/26/2024 CBC WITH AUTO- DIFFE RENTI AL abs. imm. gran. 0.03 10*3/ uL 0.00-0 .10 Not Available [facility] [address], [place], [address], 02/27/2024 15:21:13 02/26/20 24 02/26/2024 COMPR EHENS ROCKY METAB OLIC PANEL sodium 141 mmol/ L 134-14 4 Not Available [facility] [address], [place], [address], 02/27/2024 15:21:14 02/26/20 24 02/26/2024 COMPR EHENS ROCKY METAB OLIC PANEL potassium 4.2 mmol/ L 3.5-5. 2 Not Available [facility] [address], [place], [address], 02/27/2024 15:21:14 02/26/20 24 02/26/2024 COMPR EHENS ROCKY METAB OLIC PANEL chloride 106 mmol/ L 97-108 Not Available [facility] [address], [place], [address], 02/27/2024 15:21:14 02/26/20 24 02/26/2024 COMPR EHENS ROCKY METAB OLIC PANEL carbon dioxide (co2) 28.0 mmol/ L 18.0-2 9.0 Not Available [facility] [address], [place], [address], 02/27/2024 15:21:14 02/26/20 24 02/26/2024 COMPR EHENS ROCKY METAB OLIC PANEL glucose 95 mg/dL 65-99 Osvaldo l Fasti ng: < 100 mg/dL Impai red Fasti n - 125 mg/dL Diagn ostic of Diabe anny: => 126 mg/dL Ameri can Diabe anny [employer] i[employer] n, 2007 Not Available [facility] [address], [place], [address], 02/27/2024 15:21:14 02/26/20 24 02/26/2024 COMPR EHENS ROCKY METAB OLIC PANEL urea nitrogen (BUN) 11 mg/dL 6-20 Not Available [facility] [address], [place], [address], 02/27/2024 15:21:14 02/26/20 24 02/26/2024 COMPR EHENS ROCKY METAB OLIC PANEL creatinine 0.82 mg/dL 0.57-1 .00 Not Available [facility] [address], [place], [address], 02/27/2024 15:21:14 02/26/20 24 02/26/2024 COMPR EHENS ROCKY METAB OLIC PANEL eGFR for nonafrican AM 77 mL/mi nute/ 1.73_ m2 >59 Not Available [facility] [address], [place], [address], 02/27/2024 15:21:14 02/26/20 24 02/26/2024 COMPR EHENS ROCKY METAB OLIC PANEL eGFR for AM 94 mL/mi nute/ 1.73_ m2 >59 MDRD Study Equat ion: The calcu lated GFR is NOT appli cable for pedia tric (< 18 years old) and > 70 year old patie nts and patie nts that are NOT of [place] . Not Available [facility] [address], [place], [address], 02/27/2024 15:21:14 02/26/20 24 02/26/2024 COMPR EHENS ROCKY METAB OLIC PANEL calcium 9.0 mg/dL 8.7-10 .2 Not Available [facility] [address] [facility] [address] [address], [place], [address], 02/27/2024 15:21:14 02/26/20 24 02/26/2024 COMPR EHENS [place] METAB OLIC PANEL protein, total 7.1 gm/dL 6.4-8. 3 Not Available [facility] [address], [place], [address], 02/27/2024 15:21:14 02/26/20 24 02/26/2024 COMPR EHENS [place] METAB OLIC PANEL albumin 3.9 gm/dL 3.5-5. 2 Not Available [facility] [address], [place], [address], 02/27/2024 15:21:14 02/26/20 24 02/26/2024 COMPR EHENS [place] METAB OLIC PANEL bilirubin, total 0.30 mg/dL 0.00-1 .20 Not Available [facility] [address] [facility] [address], [place], [address], 02/27/2024 15:21:14 02/26/20 24 02/26/2024 COMPR EHENS [place] METAB OLIC PANEL alkaline phosphatase (ALP) 71 U/L 39-117 Not Available [facility] [address], [place], [address], 02/27/2024 15:21:14 02/26/20 24 02/26/2024 COMPR EHENS [place] METAB OLIC PANEL aspartate aminotransfe rase (AST) 15 U/L 0-32 Not Available [facility] [address], [place], [address], 02/27/2024 15:21:14 02/26/20 24 02/26/2024 COMPR EHENS [place] METAB OLIC PANEL alanine aminotransfe rase (ALT) 10 U/L 0-33 Not Available [facility] [address], [place], [address], 02/27/2024 15:21:14 02/26/20 24 02/26/2024 COMPR EHENS [place] METAB OLIC PANEL A/G ratio (calculated) 1.2 ratio 1.0-2. 7 Not Available [facility] [address], [place], [address], 02/27/2024 15:21:14 02/26/20 24 02/26/2024 COMPR EHENS [place] METAB OLIC PANEL globulin (calculated) 3.2 gm/dL 1.5-3. 8 Not Available [facility] [address], [place], [address], 02/27/2024 15:21:14 02/26/20 24 02/26/2024 COMPR EHENS [place] METAB OLIC PANEL BUN/creatini ne ratio (calculated) 13.4 ratio 8.0-20 .0 Not Available [facility] [address], [place], [address], 02/27/2024 15:21:14 02/26/20 24 02/26/2024 COMPR EHENS [place] METAB OLIC PANEL serum hemolysis index NORMAL index normal Not Available [facility] [address], [place], [address], 02/27/2024 15:21:14 02/26/20 24 02/26/2024 MAGNE SIUM magnesium 1.8 mg/dL 1.6-2. 6 Not Available [facility] [address], [place], [address], 02/27/2024 15:21:15 02/26/20 24 02/26/2024 THYRO ID-ST IM. HORMO NE (TSH) , HIGH- SENSI TIVE thyroid-stim . hormone (TSH), hs 1.05 uIU/m L 0.27-4 .20 Not Available [facility] [address], [place], [address], 02/27/2024 15:21:15 02/26/20 24 02/26/2024 VITAM IN B12 vitamin B12 572 pg/mL 232-12 45 Not Available [facility] [address], [place], [address], 02/27/2024 15:21:16 02/26/20 24 02/26/2024 VITAM IN D, 25-HY DROXY TOTAL vitamin D, total 30.2 NG/mL 30.0-1 00.0 The Vitam in D Assay formu latkenton n has been updat ed to offer direc t trace abili ty to ID-LC -MS/M S Refer ence Measu remen t Proce dure along with a reduc tion in bioti n inter feren ce. Defic ient: < 20 ng/mL Insuf ficie nt: 21 - 29 ng/mL Suffi cient : 30 - 100 ng/mL Poten tial Intox icati on: > 100 ng/mL Not Available [facility] [address], [place], [address], 02/27/2024 15:21:17 02/28/20 24 02/28/2024 urina lysis , dipst ick Leukocytes Negati ve Not Available [facility], [facility] [address], [place], [address], 02/26/2024 15:40:08 02/28/20 24 02/28/2024 urina lysis , dipst ick Nitrite negati ve Not Available [facility], [facility] [address], [place], [address], 02/26/2024 15:40:08 02/28/20 24 02/28/2024 urina lysis , dipst ick Urobilinogen .[address] [facility], [facility] [address], [place], [address], 02/26/2024 15:40:08 02/28/20 24 02/28/2024 urina lysis , dipst ick Protein Trace Not Available [facility], [facility] [address], [place], [address], 02/26/2024 15:40:08 02/28/20 24 02/28/2024 urina lysis , dipst ick pH 7.5 Not Available [facility], [facility] [address], [place], [address], 02/26/2024 15:40:08 02/28/20 24 02/28/2024 urina lysis , dipst ick Blood Negati ve Not Available [facility], [facility] [address], [place], [address], 02/26/2024 15:40:08 02/28/20 24 02/28/2024 urina lysis , dipst ick Specific [place] 1.010 Not Available [facility], [facility] [address], [place], [address], 02/26/2024 15:40:08 02/28/20 24 02/28/2024 urina lysis , dipst ick Ketone Small Not Available [facility] [address], [place], [address], 02/26/2024 15:40:08 02/28/20 24 02/28/2024 urina lysis , dipst ick Bilirubin Negati ve Not Available [facility], [facility] [address], [place], [address], 02/26/2024 15:40:08 02/28/20 24 02/28/2024 urina lysis , dipst ick Glucose Negati ve Not Available [facility], [facility] [address] [facility] [address], [place], [address], 02/26/2024 15:40:08 02/28/20 24 02/28/2024 urina lysis , dipst ick Appearance Slight ly Cloudy Not Available [facility], [facility] [address] [facility] [address], [place], [address], 02/26/2024 15:40:08 02/28/20 24 02/28/2024 urina lysis , dipst ick Color Dark Yellow Not Available [facility], [facility] [address] [facility] [address], [place], [address], 02/26/2024 15:40:08 08/27/20 24 08/27/2024 urina lysis , dipst ick Leukocytes Negati ve Not Available [facility], [facility] [address] [facility] [address], [place], [address], 08/26/2024 15:42:39 08/27/20 24 08/27/2024 urina lysis , dipst ick Nitrite negati ve Not Available [facility], [facility] [address] [facility] [address], [place], [address], 08/26/2024 15:42:39 08/27/20 24 08/27/2024 urina lysis , dipst ick Urobilinogen 4 Not Available [facility] [address] [facility] [address], [place], [address], 08/26/2024 15:42:39 08/27/20 24 08/27/2024 urina lysis , dipst ick Protein Trace Not Available [facility], [facility] [address] [facility] [address], [place], [address], 08/26/2024 15:42:39 08/27/20 24 08/27/2024 urina lysis , dipst ick pH 5.0 Not Available [facility], [facility] [address] [facility] [address], [place], [address], 08/26/2024 15:42:39 08/27/20 24 08/27/2024 urina lysis , dipst ick Blood Negati ve Not Available [facility] [address] [facility] [address], [place], [address], 08/26/2024 15:42:39 08/27/20 24 08/27/2024 urina lysis , dipst ick Specific [place] 1.005 Not Available [facility] [address] [facility] [address], [place], [address], 08/26/2024 15:42:39 08/27/20 24 08/27/2024 urina lysis , dipst ick Ketone Negati ve Not Available [facility] [address] [facility] [address], [place], [address], 08/26/2024 15:42:39 08/27/20 24 08/27/2024 urina lysis , dipst ick Bilirubin Negati ve Not Available [facility], [facility] [address] [facility] [address], [place], [address], 08/26/2024 15:42:39 08/27/20 24 08/27/2024 urina lysis , dipst ick Glucose Negati ve Not Available [facility] [address] [facility] [address], [place], [address], 08/26/2024 15:42:39 08/27/20 24 08/27/2024 urina lysis , dipst ick Appearance Cloudy Not Available [facility] [address] [facility] [address], [place], [address], 08/26/2024 15:42:39 08/27/20 24 08/27/2024 urina lysis , dipst ick Color Yellow Not Available [facility] [facility] [address], [place], [address], 08/26/2024 15:42:39 04/19/20 21 xr chest Pa+la t [facility] [place] [address] Orderi ng Provid er: MIRLANDE MCWILLIAMS Examin ation: XR CHEST PA+LAT Exam time: 10:34 AM Clinic al histor y: Chest pain Compar guillermina: No prior exam Techni que: Uprigh t PA and latera l views Findin gs: Cardia c silhou ette and pulmon sabine vascul ature are within normal limits . Lungs appear clear. No eviden ce of pleura l reacti on or effusi on. No eviden ce of peribr onchia l cuffin g or bronch ial wall thicke azucena. Overal l, no radiog raphic eviden ce of active chest diseas e. IMPRES CARRIE: No radiog raphic eviden ce of active chest diseas e. Referr ed By: MIRLANDE ANGULO Electr onical ly Signed By: Nito Lizarraga MD on 10:39 AM Interp reted By: Nito Lizarraga MD, 10:38 AM [facility] [address] [facility], [place], [address], 05/04/2021 16:53:51 04/19/20 21 04/19/2021 XR, chest , 2 view No observ ation record ed. [facility] [place] [address] [facility], [place], [address], 05/04/2021 16:53:51 04/19/20 21 ECG 12-le ad [facility] [place] [place] [address] Orderi ng Provid er: MIRLANDE LUNA Ethan [facility] [place] [address] [facility] [address] [place] [facility] n [place] Test Date: 04-19 Pat Name: HENNA OLEARY Ethan Depart ment: Dayami t ID: [id number] Room: INPR Gender : Female Techni mira: OUTFITTER CABIN : 1984-09 0- Reques brandin By: MIRLANDE LUNA Ethan Order Number : [id number] Ricardo bateman MD: Kim bateman Measur ements Interv als Rienzi Rate: 73 P: 65 CA: 149 QRS: 12 QRSD: 96 T: 21 QT: 385 QTc: 427 Interp retive Statem ents SINUS RHYTHM POSSIB LE LEFT ATRIAL ENLARG EMENT POSSIB LE RIGHT VENTRI CULAR CONDUC TION DELAY No previo us ECG availa ble for compar guillermina Electr onical ly signed by Kim bateman at 021 11:33: 03 CDT [facility] [address] [facility], [place], [address], 05/04/2021 16:53:51 04/19/20 21 ECG 12-le ad [facility] [place] [address] Orderi ng Provid er: MIRLANDE SMARTMirella Long [facility] [place] [address] [facility] [address] [place] [facility] n [place] Test Date: 04-19 Pat Name: HENNA OLEARY Ethan Depart ment: Patien t ID: [id number] Room: INPR Gender : Female Techni mira: OUTFITTER CABIN : 1984-09 0 Reques brandin By: MIRLANDE SMARTMirella Long Order Number : [id number] Ricardo bateman MD: Kim bateman [employer]as[employer] e[employer] Interv als Rienzi Rate: 73 P: 65 CA: 149 QRS: 12 QRSD: 96 T: 21 QT: 385 QTc: 427 Interp retive Statem ents SINUS RHYTHM POSSIB LE LEFT ATRIAL ENLARG EMENT POSSIB LE RIGHT VENTRI CULAR CONDUC TION DELAY No previo us ECG availa ble for compar guillermina Electr onical ly signed by Kim bateman at 04-19- 021 11:33: 03 CDT [facility] [address] [facility], [place], [address], 05/04/2021 16:53:51 04/19/20 21 cta chest [facility] AL ONE [facility] [place] [address] Orderi ng Provid er: MIRLANDE MCWILLIAMS EXAMIN ATION: CTA CHEST WITH CONTRA ST, PULMON SABINE EMBOLI SM CLINIC AL HISTOR Y: PE SUSPEC BRANDIN, LOW/IN TERMED IATE PROB, POSITI VE D-DIME R COMPAR GUILLERMINA: None TECHNI QUE: Comput ed tomogr aphy angiog lili was perfor med of the chest after admini strati on of intrav enous contra st, Isovue -370, accord ing to pulmon sabine emboli sm protoc ol. Maximu m intens ity projec tion images were obtain ed. A dose loweri ng techni que was used for this proced ure, which may includ e, but is not limite d to, dose reduct ion techni que, automa brandin exposu re contro l, the use of iterat rocky recons tructi on, and ALARA (As Low As Reason ably Achiev able) / Image Gently techni ques. FINDIN GS: Expira tion images of chest. Depend ent atelec tasis. No suspic ious lung mass or consol idatio n. Linear atelec tasis/ scarri ng, lingul a and right middle lobe. No pneumo thorax . No pleura l effusi on. Normal heart size. No signif icant perica rdial effusi on. No pathol ogic fillin g defect s in the pulmon sabine artery . No medias tinal hemato ma. Postsu rgical change s in the stomac h. Cholel ithias is. No destru ctive bone lesion s. IMPRES CARRIE: 1. No acute pulmon sabine emboli sm. 2. Cholmis gallagher is. Referr ed By: MIRLANDE Ahn onical ly Signed By: Danika Gould MD on 12:21 PM Interp reted By: Danika Gould MD, 12:16 PM 80 [facility] [address], [place], [address], 05/04/2021 16:53:50 04/19/20 21 04/19/2021 CT, angio gram, chest , w/ contr ast No observ ation record ed. [facility] [place] [address] [facility], [place], [address], 05/04/2021 16:53:51 05/05/20 21 05/04/2021 mala metry testi ng* No observ ation record ed. [facility], [facility] [address], [place], [address], 12/17/2023 12:32:40 12/02/19 24 [facility] [place] [address] Orderi ng Provid er: POONAM Burgess Examin ation: Chest x-ray 1 view Access ion: [id number] Exam date/t areli: 024 8:37 PM Reason For Exam: cough, fever Compar guillermina: No prior exam Techni que: Uprigh t AP view of the chest demons trated . Findin gs: The cardia c silhou ette, medias tinal contou rs, and pulmon sabine vessel s appear normal . The lungs are clear. No pneumo thorax . No consol idatio ns or effusi ons are seen. =====I MPRESS ION:== === No radiog raphic eviden ce of active chest diseas e ====== ====== ====== === Ordere d By: POONAM ALVARADO S Electr onical ly Signed By: Nito Lizarraga MD on 9:01 PM Interp reted By: Nito Lizarraga MD, 9:[address], [place], [address], 12/17/2023 12:32:40 12/05/19 24 XR, chest [facility] [place] [place] [address] Orderi ng Provid er: BASEM ANUSHA E INDICA TION: Chest pain. COMPAR GUILLERIMNA: Chest radiog raph . TECHNI QUE: Single fronta l view of the chest. FINDIN GS: Lungs: There is no focal consol idatio n, pleura l effusi on or pneumo thorax . Heart and Medias tinum: The cardia c silhou ette is not enlarg ed. The medias tinal contou rs are unrema rkable . Bones: No suspic ious osseou s lesion . IMPRES CARRIE: No eviden ce of acute cardio pulmon sabine diseas e. Referr ed By: Electr onical ly Signed By: Yadira Ruby MD on 6:42 AM Interp reted By: Yadira Ruby MD, 6:[address], [place], [address], 12/17/2023 12:32:40 12/05/19 24 ECG 12-le ad [facility] [place] [address] Orderi ng Provid er: BASEM KHISHF [facility] [place] [address], [place] Test Date: 12-04 Pat Name: HENNA Long Depart ment: 40 Patien t ID: [id number] Room: Gender : Female Techni mira: [id number] : 1984-09 Reques brandin By: URBAN BOTELLO Order Number : [id number] Ricardo bateman MD: Nito Mayorgaur ements Interv als Rienzi Rate: 81 P: 49 CA: 156 QRS: 4 QRSD: 85 T: 59 QT: 372 QTc: 434 Interp retive Statem ents SINUS RHYTHM WITH FREQUE NT SUPRAV ENTRIC ULAR PREMAT URE COMPLE XES IN A BIGEMI NAL PATTER N POSSIB LE RIGHT VENTRI CULAR CONDUC TION DELAY [RSR (QR) IN V1/V2] NONSPE CIFIC T-WAVE ABNORM ALITY ABNORM AL RHYTHM ECG Compar ed to ECG 2020 09:50: 34 T-wave abnorm ality now presen t Electr onical ly signed by Nito Garcia at 22:04: 52 CDT [facility] [address] [facility], [place], [address], 12/17/2023 12:32:40 12/05/19 24 ECG 12-le ad . [facility] [place] [address] Orderi ng Provid er: [facility] [place] [address], [place] Test Date: 12-04 Pat Name: HENNA Long Depart ment: 40 Patien t ID: [id number] Room: Gender : Female Techni mira: [id number] : 1984-09 Reques brandni By: URBAN BOTELLO Order Number : [id number] Ricardo bateman MD: Nito Garcia Measur ements Interv als Rienzi Rate: 81 P: 49 CA: 156 QRS: 4 QRSD: 85 T: 59 QT: 372 QTc: 434 Interp retive Statem ents SINUS RHYTHM WITH FREQUE NT SUPRAV ENTRIC ULAR PREMAT URE COMPLE XES IN A BIGEMI NAL PATTER N POSSIB LE RIGHT VENTRI CULAR CONDUC TION DELAY [RSR (QR) IN V1/V2] NONSPE CIFIC T-WAVE ABNORM ALITY ABNORM AL RHYTHM ECG Compar ed to ECG 2020 09:50: 34 T-wave abnorm ality now presen t Electr onical ly signed by Nito Garcia at 3-14-2 024 22:04: 52 CDT [facility] [address] [facility], [place], [address], 12/17/2023 12:32:39 12/17/1912/17/2023 mala metry testi ng* No observ ation record ed. [email or web address] [facility], [facility] [address], [place], [address], 12/17/2023 20:02:37 Result Notes None recorded. Problems Name Problem SNOMED Code Status Onset Date Resolution Date Notes Provider Name and Address Organization Details Recorded Time Asthma 806872554 Active Marguerite stern [facility] 6 12:21:02 Essential hypertensi on 43461557 Active Marguerite stern [facility] 6 12:21:16 Overweight 598398244 Active 2015 Steve Shahid MD [address], [place], [address], [facility] 6 12:58:08 Ex-smoker 0712877 Active 2015 Steve Shahid MD [address], [place], [address], [facility] 6 12:58:57 Cyst of thyroid 53098464 Active 2016 on U/S 08/2016 Steve Shahid MD [address], [place], [address], [facility] 7 17:23:47 Obstructiv e sleep apnea of adult 8739148641544 Active 2016 Steve Shahid MD [address], [place], [address], [facility] 7 14:53:58 History of bariatric surgical procedure 639376593 Active 2016 sleeve 04/22/17 Steve Shahid MD [address], [place], [address], [facility] 7 10:53:32 Tattoo of skin 442806936861 Active 2018 Steve Shahid MD [address], [place], [address], [facility] 9 15:33:39 Gastroesop hageal reflux disease without esophagiti s 142936106 Active 2020 Steve Shahid MD [address], [place], [address], [facility] 1 19:24:59 Cholelithi asis without obstructio n 76845155 Active [address] 04/19/21 Steve Shahid MD [address], [place], [address], [facility] 1 13:25:01 History of SARS-CoV-2 0319647583342 27062 Active 2023 Steve Shahid MD [address], [place], [address], [facility] 4 12:32:09 Body mass index 30+ - obesity 663990733 Active 2023 Steve Shahid MD [address], [place], [address], [facility] 4 12:35:33 Chronic constipati on 812304873 Active 2023 Steve Shahid MD [address], [place], [address], [facility] 4 12:40:35 Low back pain 998130605 Active 2023 Steve Shahid MD [address] [facility] [address], [place], [address], [place] [facility] 4 12:42:20 Problem Notes None recorded. Procedures Surgical History Date Name Laterality Status Provider Name and Address Organization Details Recorded Time Date of Last Mammogram completed RAKAN ROE [facility] 12/05/2020 19:11:22 7 Date of Last Pap Smear completed ROSA ISELA LO [facility] 04/17/2017 09:20:16 Imaging Results Imaging Date Name Status LastModified by Organiz ation Details LastModified Time 04/19/2021 xr chest Pa+lat completed [address], [address], 05/04/2021 16:53:51 04/19/2021 XR, chest, 2 view completed [facility], [place], [address], 05/04/2021 16:53:51 04/19/2021 ECG 12-lead completed [address], [address], 05/04/2021 16:53:51 04/19/2021 ECG 12-lead completed [address], [place], [address], 05/04/2021 16:53:51 04/19/2021 cta chest completed [address], [place], [address], 05/04/2021 16:53:50 04/19/2021 CT, angiogram, chest, w/ contrast completed [facility] [place] [address] [facility], [place], [address], 05/04/2021 16:53:51 05/04/2021 spirometry testing* completed [facility], [facility] [address], [place], [address], 12/17/2023 12:32:40 12/02/2023 XR, chest completed [address], [address], 12/17/2023 12:32:40 12/05/2023 XR, chest completed [address], [place], [address], 12/17/2023 12:32:40 12/05/2023 ECG 12-lead completed [address], [place], [address], 12/17/2023 12:32:40 12/05/2023 ECG 12-lead completed [address], [address], 12/17/2023 12:32:39 12/17/2023 spirometry testing* completed [email or web address] [facility], [facility] [address], [place], [address], 12/17/2023 20:02:37 Procedure Notes None recorded. Medical Equipment None [...] Available Vitals Date Recorded Body height Body temperature Body mass index (BMI) Body weight Respiratory rate Heart rate Systolic blood pressure Diastolic blood pressure Provider Name and Address Organization Details Last Updated DateTime 4 167.64 cm 98.6 [degF] 33.6 kg/m2 97723.2 1 g 16 /min 82 /min 128 mm[Hg] 87 mm[Hg] Esther Reina [facility] 4 12:05:19 Date Recorded Body height Respiratory rate Body temperature Body mass index (BMI) Body weight Systolic blood pressure Diastolic blood pressure Provider Name and Address Organization Details Last Updated DateTime 4 167.64 cm 16 /min 98.5 [degF] 34.9 kg/m2 74482.9 5 g 125 mm[Hg] 81 mm[Hg] Ceferino Shirley [facility] 4 15:08:00 Date Recorded Heart rate Provider Name an d Address Organization Details Last Updated DateTime 02/26/2024 95 /min Steve Shahid MD [address], [place], [address], [facility] 02/26/2024 15:37:26 Date Recorded Body height Body temperature Respiratory rate Body mass index (BMI) Body weight Systolic blood pressure Diastolic blood pressure Provider Name and Address Organization Details Last Updated DateTime 4 167.64 cm 98.3 [degF] 16 /min 32.8 kg/m2 03715.2 5 g 130 mm[Hg] 93 mm[Hg] Esther Reina [facility] 4 15:10:28 Date Recorded Heart rate Provider Name an d Address Organization Details Last Updated DateTime 05/28/2024 74 /min Steve Shahid MD [address], [place], [address] 05/28/2024 15:35:00 Date Recorded Body height Body mass index (BMI) Body weight Body temperature Respiratory rate Heart rate Systolic blood pressure Diastolic blood pressure Provider Name and Address Organization Details Last Updated DateTime 4 167.64 cm 32.9 kg/m2 29111.8 4 g 98.5 [degF] 16 /min 98 /min 124 mm[Hg] 90 mm[Hg] Esther Reina [facility] 4 15:13:44 Date Recorded Body height Body mass index (BMI) Body weight Body temperature Respiratory rate Heart rate Provider Name and Address Organization Details Last Updated DateTime 167.64 cm 29.7 kg/m2 07805 g 97.9 [degF] 16 /min 52 /min December [facility] 16:40:54 Date Recorded Systolic blood pressure Diastolic blood pressure Provider Name and Address Organization Details Last Updated DateTime 05/04/2021 130 mm[Hg] 85 mm[Hg] Steve Shahid MD [address] [facility] [address], [place], [address], [facility] 05/04/2021 17:02:14 Social History Question Answer Notes LastModified by Organizat ion Details LastModified Time Tobacco Smoking Status [facility] 12:25:13 What Is Your Level Of Alcohol Consumption? Occasional [email or web address] Information not available 09/12/2016 In The 14 [...] Live Alone Or With Others? With Others [email or web address] Information not available 09/12/2016 What Was The [...] available 12/2023 15:01:36 Paternal Grandmother Heart disease [email or web address] Not available 2015 12:27:05 Brother Essential hypertension [...] SARS-COV-2 (COVID-19) vaccine, UNSPECIFIED 11/23/2020 completed Steve Shahid MD [address], [place], [address] 12/05/2020 19:18:14 Past Encounters Encounter ID Performer Location Encounter Start Date Encounter Closed Date Diagnosis/Indication Diagnosis SNOMED-CT Code Diagnosis ICD10 Code [id number] Steve Shahid MD [place] [employer] [facility] [address] [place] [address] 09/12/2016 11:43:48 09/12/2016 13:19:54 Asthma 750112111 J45.909 Essential hypertension 29318476 I10 Overweight 455063771 E66 .3 Ex-smoker 3362679 Z87.89 1 Acanthosis nigricans 402 101383 L83 Screening for malignant neoplasm of cervix 222525533 Z12.4 Active or passive immunization 579033016 Z23 Cholesterol screening 27 2272872 Z13.220 Snoring 77620595 R06.83 Goiter 9778442 E04.9 [id number] Steve Shahid MD [facility], [facility] [address] [place] [address] 10/16/2016 16:44:34 10/16/2016 17:31:54 Essential hypertension 32128461 I10 Asthma 954546851 J45.90 9 Obesity 072875299 E66.9 Snoring 80444940 R06.83 Hyperlipidemia 87389206 E78.5 [id number] Steve Shahid MD [place] [employer] [facility], [facility] [address] [place] [address] 10/31/2016 11:44:28 10/31/2016 12:38:44 Low back pain 553063678 M54.5 Numbness of foot 3622247 00 R20.0 Sleep apnea 08438495 G47 .30 Obesity 042827872 E66.9 [id number] Steve Shahid MD [place] [employer] [facility], [facility] [address] [place] [address] 12/11/2016 14:32:30 12/11/2016 15:04:26 Lumbago with sciatica 891243692 M54.42 Obstructiv e sleep apnea of adult 0228206093 103 G47.33 Asthma 273997502 J45.90 9 Essential hypertension 55479933 I10 Overweight 790490945 E66 .3 Screening for malignant neoplasm of cervix 784196197 Z12.4 [id number] Dhara Carlos, [facility] [employer] [facility], [facility] [address] [place] [address] 01/09/2017 17:05:00 01/09/2017 17:38:09 Dysuria 00539782 R30.0 Vaginal discharge 553152 006 N89.8 [id number] Steve Shahid MD [facility], [facility] [address] [place] [address] 03/13/2017 14:52:22 03/13/2017 16:08:07 Obstructive sleep apnea of adult 3241791977 103 G47.33 Asthma 239408824 J45.90 9 Essential hypertension 65274325 I10 Cyst of thyroid 96723931 E04.1 Overweight 343665165 E66 .3 Gastritis 6135985 K29.70 [id number] EMMA LEUNGN [place] [employer] [facility], [facility] [address] [place] [address] 04/15/2017 15:43:06 04/15/2017 16:25:10 Asthma 811641898 J45.909 Obstructiv e sleep apnea of adult 5667098819 103 G47.33 Overweight 725911448 E66 .3 Essential hypertension 58082009 I10 Onychomycosis 194624700 B35.1 [id number] YARA VELA APN [facility], [facility] [address] [place] [address] 04/17/2017 09:07:28 04/17/2017 09:42:09 Low back pain 702473285 M54.5 Obstructiv e sleep apnea of adult 9139688824 103 G47.33 Overweight 884544772 E66 .3 Essential hypertension 03875668 I10 Asthma 750444752 J45.90 9 [id number] Steve Shahid MD [facility], [facility] [address] [place] [address] 06/19/2017 10:19:52 06/19/2017 11:04:22 Essential hypertension 79917434 I10 History of bariatric surgical procedure 523805031 Z98.84 Obstructiv e sleep apnea of adult 4037630795 103 G47.33 Asthma 031453171 J45.90 9 Screening for malignant neoplasm of cervix 349561776 Z12.4 Toothache 53860000 K08.8 9 [id number] YARA VELA [facility], [facility] [address] [place] [address] 09/19/2017 10:35:56 09/19/2017 11:14:47 Essential hypertension 03561324 I10 History of bariatric surgical procedure 907772536 Z98.84 Obstructiv e sleep apnea of adult 6926194036 103 G47.33 Asthma 940741359 J45.90 9 Screening for malignant neoplasm of cervix 273750553 Z12.4 Hyperlipidemia 29351729 E78.5 [id number] YARA VELA [facility], [facility] [address] [place] [address] 10/29/2018 16:35:30 10/29/2018 17:27:56 Acute urinary tract infection 048092728 N39.0 Vaginal discharge 491964 006 N89.8 Constipation 34381230 K5 9.00 Spinal asad nosis of lumbar region 05429464 M48.061 Obstructiv e sleep apnea of adult 9786129933 103 G47.33 Asthma 237969744 J45.90 9 Body mass index 25-29 - overweight 849365056 Z68.29 Cyst of thyroid 56187231 E04.1 Hyperlipidemia 38062364 E78.5 Sacral back pain 8180426 3 M54.5 History of bariatric surgical procedure 301732240 Z98.84 Screening for malignant neoplasm of cervix 673428452 Z12.4 [id number] Steve Shahid MD [place] [employer], [facility] [address] [place] [address] 02/09/2019 15:06:59 02/09/2019 15:43:28 Adult health examination 221149940 Z00.00 History of bariatric surgical procedure 266019379 Z98.84 Obstructiv e sleep apnea of adult 9736729376 103 G47.33 Asthma 710362379 J45.90 9 Chronic constipation 236 929920 K59.09 Low back pain 081195765 M54.5 Body mass index 25-29 - overweight 927323471 Z68.28 Screening for malignant neoplasm of cervix 656711242 Z12.4 Active or passive immunization 841721724 Z23 Tattoo of skin 210538898 1 02 L81.8 Acute urin sabine tract infection 787897808 N39.0 [id number] Steve Shahid MD [employer], [facility] [address] [place] [address] 01/19/2020 14:17:26 01/19/2020 14:44:47 Dysuria 51301912 R30.9 Asthma 134188720 J45.90 9 Essential hypertension 61997890 I10 History of bariatric surgical procedure 398397594 Z98.84 Ex-smoker 7787991 Z87.89 1 Obstructiv e sleep apnea of adult 6369192788 103 G47.33 Tattoo of skin 215947599 1 02 L81.8 Screening for malignant neoplasm of cervix 663833054 Z12.4 Active or passive immunization 823497349 Z23 Screening procedure 2012 5006 Z13.9 [id number] Steve Shahid MD [employer], [facility] [address] [place] [address] 12/05/2020 19:00:57 12/05/2020 19:38:09 Adult health examination 005944036 Z00.01 Asthma 838540606 J45.90 9 Cyst of thyroid 97052437 E04.1 Essential hypertension 19602378 I10 Ex-smoker 0297992 Z87.89 1 History of bariatric surgical procedure 765678475 Z98.84 Obstructiv e sleep apnea of adult 1007115064 103 G47.33 Tattoo of skin 825263880 1 02 L81.8 Screening for malignant neoplasm of cervix 357120750 Z12.4 Body mass index 25-29 - overweight 948010870 Z68.28 Active or passive immunization 414622050 Z23 Gastroesop hageal reflux disease without esophagitis 618901024 K21.9 Dysplastic nevus of skin 187380072 D22.9 [id number] Steve Shahid MD [email or web address] [address] [place] [address] 05/04/2021 16:21:39 05/04/2021 17:49:37 Asthma 108857279 J45.909 Body mass index 25-29 - overweight 406165885 Z68.28 Cholelithi asis without obstruction 21264939 K80.20 Essential hypertension 48148224 I10 Gastroesop hageal reflux disease without esophagitis 460990221 K21.9 History of bariatric surgical procedure 018655274 Z98.84 Obstructiv e sleep apnea of adult 4443547328 103 G47.33 Tattoo of skin 966615460 1 02 L81.8 Screening for malignant neoplasm of cervix 494816466 Z12.4 Active or passive immunization 995516210 Z23 Cholesterol screening 27 4461176 Z13.220 Screening procedure 2012 5006 Z13.9 [id number] Steve Shahid MD [email or web address] [address] [place] [address] 12/17/2023 11:43:36 12/17/2023 13:00:28 Adult health examination 958082177 Z00.01 Asthma 334981858 J45.90 9 Body mass index 30+ - obesity 565909554 Z68.33 History of SARS-CoV-2 29 95764990 46366576 Z86.16 Influenza- like illness 48808868 B34.9 Cholelithi asis without obstruction 00546937 K80.20 Cyst of thyroid 43975193 E04.1 Essential hypertension 47874404 I10 Ex-smoker 5765064 Z87.89 1 Gastroesop hageal reflux disease without esophagitis 358525647 K21.9 History of bariatric surgical procedure 567295879 Z98.84 Obstructiv e sleep apnea of adult 4864346293 103 G47.33 Tattoo of skin 783949137 1 02 L81.8 Screening for malignant neoplasm of cervix 399038826 Z12.4 Active or passive immunization 096864707 Z23 Chronic constipation 236 795201 K59.09 Low back pain 406041231 M54.50 [id number] Steve Shahid MD [employer], [facility] [address] [place] [address] 02/26/2024 14:52:43 02/26/2024 15:51:32 Low back pain 231976697 M54.50 Body mass index 30+ - obesity 820094704 Z68.33 Asthma 706125962 J45.90 9 Chronic constipation 236 835768 K59.09 Essential hypertension 68182051 I10 History of bariatric surgical procedure 210812200 Z98.84 Obstructiv e sleep apnea of adult 9477658233 103 G47.33 Screening for malignant neoplasm of cervix 511097248 Z12.4 Active or passive immunization 800383142 Z23 [id number] Steve Shahid MD [employer], [facility] [address] [place] [address] 05/28/2024 14:50:24 05/28/2024 15:46:31 Asthma 878823309 J45.909 Body mass index 30+ - obesity 042615334 Z68.33 Cholelithi asis without obstruction 21886510 K80.20 Essential hypertension 10353538 I10 History of bariatric surgical procedure 665499766 Z98.84 Gastroesop hageal reflux disease without esophagitis 143257334 K21.9 Screening for malignant neoplasm of cervix 029983491 Z12.4 Active or passive immunization 067825877 Z23 Chronic constipation 236 902455 K59.09 [id number] Steve Shahid MD [place] [address] [place] [address] 08/26/2024 14:59:50 08/26/2024 15:50:28 Asthma 110154950 J45.909 Body mass index 30+ - obesity 319705538 Z68.33 Cholelithi asis without obstruction 39859956 K80.20 Essential hypertension 17776209 I10 Gastroesop hageal reflux disease without esophagitis 792756923 K21.9 History of bariatric surgical procedure 400111806 Z98.84 Obstructiv e sleep apnea of adult 8683292427 103 G47.33 Tattoo of skin 579123633 1 02 L81.8 Cholesterol screening 27 9984697 Z13.220 Screening mammography 24 113859 Z12.31 Screening for malignant neoplasm of cervix 235077659 Z12.4 Active or passive immunization 234102199 Z23 Lumbago with sciatica 20 7686834 M54.42 Health Concerns Section Related Observation LastModified by Organization Detai ls LastModified Time None Recorded Concern Status LastModified by Organization Details LastModified Time None Recorded Advance Directives Directive None Recorded Payers Encounter Date Sequence Insurance Name Policy Number Policy Banks Covered Member ID Bnaks Member ID Guarantor Name 05/04/2021 2 [place] [id number] Lamoria R Chandana [id number] Lamoria Chandana 12/17/2023 2 [place] [id number] Lamoria R Chandana [id number] Lamoria Chandana 02/26/2024 2 [place] [id number] Lamoria R Chandana [id number] Lamoria Chandana 05/28/2024 2 [place] [id number] Lamoria R Chandana [id number] Lamoria Chandana 05/28/2024 1 [place] [id number] Lamoria R Chandana [id number] Lamoria Chandana 08/26/2024 1 [place] [id number] Lamoria R Chandana [id number] Lamoria Chandana Notes Date Note Type Note Provider Name and Address Organization Details Recorded Time 05/04/2021 text/html Hypertension F/UReported bypatient.Medications: taking medications as directed; no side effects from medication Lifestyle:regular exercise; limiting/avoiding salt; compliant with low salt diet Associated Symptoms:no dizziness; no lightheadedness; no chest pain; no shortness of breath; no palpitations; no edema; no calf pain with exertion; no headache went to ER for CP , better with prednisoln and baclofen , almost gone Steve Shahid MD [address], [place], [address], [facility] 05/04/2021 17:05:03 12/17/2023 text/html Hypertension F/UReported bypatient.Medications: taking medications as directed; no side effects from medication Lifestyle:regular exercise; limiting/avoiding salt; compliant with low salt diet Associated Symptoms:no dizziness; no lightheadedness; no chest pain; no shortness of breath; no palpitations; no edema; no calf pain with exertion; no headacheMedicare Annual Wellness VisitReported bypatient.Diet and Nutrition:healthy diet Fracture Risk:no history of fractures; no recent explained fracture; no sudden unexplained fractures; no previous musculoskeletal injuries Physical Activity:recent increase in physical activity; good physical condition; discussed exercise habits Depression Risk:never feels sad, empty, or tearful; no loss of interest in activities; no significant changes in weight; no sleep disturbances or insomnia; no agitation; no loss of energy; no feelings of worthlessness or guilt; no thoughts of suicide; no history of depression; no history of mood disorders Orientation:no disorientation to time; no disorientation to date; no disorientation to place Concentration and Memory:no decreased concentrating ability; no memory lapses or loss; does not forget words Speech/Motor difficulties:no speech difficulties; no difficulty expressing formulated concepts; no difficulty with fine manipulative tasks; no difficulty writing/copying; no slowed reaction time; does not knock things over when trying to pick them up Hearing:no loss of hearing Vision:no vision problems Falls Risk Assessment:no frequent falls while walking; no fall in the past year; no fall since last visit; no dizziness/vertigo Home Safety:use of seatbelts; no vision or hearing loss while driving Steve Shahid MD [address], [place], [address], [facility] 12/17/2023 12:45:18 02/26/2024 text/html Hypertension F/UReported bypatient.Medications: taking medications as directed; no side effects from medication Lifestyle:regular exercise; limiting/avoiding salt; compliant with low salt diet Associated Symptoms:no dizziness; no lightheadedness; no chest pain; no shortness of breath; no palpitations; no edema; no calf pain with exertion; no headache LBP after pending over to get something from the floor , 3-4 days , no red flags , Steve Shahid MD [address] [facility] [address], [place], [address], [facility] 02/26/2024 15:44:43 05/28/2024 text/html Hypertension F/UReported bypatient.Medications: taking medications as directed; no side effects from medication Lifestyle:regular exercise; limiting/avoiding salt; compliant with low salt diet Associated Symptoms:no dizziness; no lightheadedness; no chest pain; no shortness of breath; no palpitations; no edema; no calf pain with exertion; no headache Steve Shahid MD [address] [facility] [address], [place], [address], [facility] 05/28/2024 15:44:04 08/26/2024 text/html Hypertension F/UReported bypatient.Medications: taking medications as directed; no side effects from medication Lifestyle:regular exercise; limiting/avoiding salt; compliant with low salt diet Associated Symptoms:no dizziness; no lightheadedness; no chest pain; no shortness of breath; no palpitations; no edema; no calf pain with exertion; no headache Steve Shahid MD [address] [facility] [address], [place], [address], [facility] 08/26/2024 15:45:59 OBGyn Episode No OBEpisode recorded.
--- OUTSIDE RECORDS SUMMARY | 2024-09-09 00:49 | XMS_ITS | CONTINUITY OF CARE DOCUMENT ---
Author Name abigail hayes Address Unknown Organization [facility] Address [address] [place] [address] [address] [place] [address] Phone [phone] Care Team Providers Care Ceramic Maker Demonstrator Name Role Phone Deondre DENISE, Iglesia Unavailable [phone] Rivas GUTIERREZ MD Unavailable INSURANCE PROVIDERS Payer name Policy type / Coverage type [place] red democrat [employer] [facility] [facility] Medicaid 1 [id number] [employer] Other [id number]
== END 2024-09-05 09:05 | disposition home or self-care (01) ==
LOC: ANHLAB 09:05
PROVIDERS: PCP Internal Medicine; Visit Provider Obstetrics & Gynecology
DX: N92.0 Excessive and frequent menstruation with regular cycle (principal)
CPT/HCPCS: 36415; 85027; 86850; 86900; 86901

== ENCOUNTER 2024-09-10 00:16 | Day surgery (SDC) | payer BC, SELFPAY ==
[2024-09-03 15:05] VITALS: BMI 35.4
--- NOTE | 2024-09-03 15:12 | PC.NURSE ---
Report to the Outpatient Waiting Room, entrance under the green pavilion located off [facility], at time _0730_ on date _[id number]_. Planned Procedure Time: _0930_.? Time changes happen often and if your time is changed the preop area will call you the afternoon before. - You and your visitor will be asked to self-screen and do not enter if you have any COVID symptoms. Please call surgeon if you need to reschedule. - A mask is optional within the hospital at this time. Patients may have clear liquids (water, carbonated beverages, clear teas, apple juice) until 3 hours prior to surgery with a maximum of 20 ounces. - No food from midnight until time of surgery and no smoking. This includes no chewing gum, candy or mints. Take only the following medications with a SIP of water on the morning of surgery: ___Symbicort DO NOT STOP ANY OF YOUR OTHER PRESCRIPTION MEDICATIONS PRIOR TO SURGERY EXCEPT THE FOLLOWING Medications to discontinue per physician ____Probiotic___ Date to take last nooc___[id number]____ Please no make-up, nail syriac, hairspray, perfume, deodorant, or body powder the day of surgery.? No jewelry (including any body piercings) or valuables the day of surgery, leave them at home.? Please take a shower or bath the night before, or the morning of, surgery with an antibacterial soap.? Wear comfortable, loose fitting clothing.? . - Jewelry must be removed prior to entering the operating room.? Rings and piercings that are not removed may be cut off. - The hospital will not accept responsibility for valuables.? - Please leave all valuables, including medications, at home the day of surgery. If you are going home after surgery, a licensed compactor driver must drive you home.? - NO public transportation without another adult if you receive anesthesia. - We recommend that an adult stay with you for 24 hours following discharge. - We also recommend that you do not drive, make important decision, drink alcoholic beverages, or take any drugs that were not prescribed by your health care provider for at least 24 hours after your discharge time. Follow any additional instructions given to you from your surgeon. Telephone instructions given to _Saritha__and asked if any additional questions and then verbalized understanding. Patient advised to call surgeon office or pre surgery nurse liaison [phone] if any additional questions.
--- NOTE | 2024-09-09 16:09 | P.HP_ITS ---
H&P: HPI History of Present Illness Date/Time: 09/09/24 16:09 39-year-old female presents with complaints of heavy vaginal bleeding cramping and clotting. Cycles lasting 7-10 days with 4-5 days heavy with clotting and discomfort. Ultrasounds ordered did show multiple fibroids. We had discussed multiple treatment options and she strongly desires to proceed with definitive therapy in the form of hysterectomy. She has had 3 prior vaginal deliveries and no current contraception though she has had a unilateral salpingectomy due to ectopic . Chief Complaint: vaginal bleeding Review of Systems Review of Systems: All systems reviewed & are unremarkable except as noted in HPI and below PMFSH Past Medical History Medical History HSV-1 infection Encounter for screening examination for sexually transmitted disease History of hypertension History of high cholesterol History of ovarian cyst Anxiety and depression Surgical History Surgical History H/O gastric sleeve (04/22/17) [place] teeth removed (04/09/19) Hx of dilation and curettage (07/02/19) Hscope D&C / menometrorrhagia, dysmenorrhea ; Benign Hx of dilation and curettage (09/14/21) Hscope D&C / menometrorrhagia History of gynecological procedure (09/23/03) salpingectomy ectopic Family History Family History Mother Breast cancer Grandparent Heart disease Grandparent Carcinoma of colon Social History Social History Smoking status: Never smoker Alcohol intake: current Drinks per week: 2 Substance use: former Substance use type: does not use and marijuana Lack of Transportation: No Lack of Food: Never True Current Housing: I Have Housing Concerned About Future Housing: No Difficulty Paying Gas/Electric Bills: No Difficulty Paying for Meds: No Currently Unemployed: No Education: Bachelor's Degree Difficulty w/ Childcare or Family Care: No Living arrangements: with family Additional living arrangements comments: children Occupation/Education: occupation 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 Gender identity (if verbalized by the patient): Female Sexual Orientation (if Verbalized by the Patient): Straight or Heterosexual Spiritual care concerns: No Meds Home Medications and Allergies Home Medications ?Medication ?Instructions ?Recorded ?Confirmed ?Type montelukast 10 mg tablet 10 mg PO DAILY 04/20/24 09/03/24 History L.acidophil,rhamnosus-B.breve,longum 1 cap PO DAILY 09/03/24 09/03/24 History 20 billion cell sprinkle capsule (Probiotic) budesonide-formoterol HFA 160 2 puff inhalation DAILY 09/03/24 09/03/24 History mcg-4.5 mcg/actuation aerosol inhaler (Symbicort) phentermine 15 mg capsule 15 mg PO DAILY 09/03/24 09/03/24 History metronidazole 0.75 % (37.5 mg/5 1 appful vaginal QHS 5 days #70 09/07/24 Rx gram) vaginal gel grams Allergies Allergy/AdvReac Type Severity Reaction Status Date / Time No Known Allergies Allergy Verified 09/03/24 15:01 Exam Const: General: cooperative and healthy appearing Resp: Effort & Inspection: normal respiratory effort Auscultation: clear to auscultation bilaterally Cardio: Rate: regular rate Rhythm: regular rhythm GI: Inspection: normal to inspection Auscultation: normal bowel sounds : External Female Exam: normal external appearance Speculum Exam - Vagina: normal appearance of the vagina Speculum Exam - Cervix: normal appearance of the cervix Bimanual exam- vagina & uterus: enlarged ( 10-12 week size) Bimanual Exam- Adnexa, other: normal adnexae Assessment and Plan Assessment and plan (1) Menorrhagia: Code(s): N92.0 - Excessive and frequent menstruation with regular cycle Status: Acute (2) Enlarged uterus: Code(s): N85.2 - Hypertrophy of uterus Status: Acute Plan proceed with robotic assisted laparoscopic hysterectomy with salpingectomy, no oophorectomy
[2024-09-10] VITALS (14 sets, daily range): BP systolic 100–116; BP diastolic 67–88; PULSE 54–77; RESP 10–20; TEMP 36.1–37.1; O2SAT 98–100
--- NOTE | 2024-09-10 07:23 | WPDHPUPDATE1 ---
History and Physical Update Update Date/Time: 09/10/24 07:23 History and Physical has been reviewed, including an updated exam of the patient. There are NO changes in the patient's condition. Risks, benefits, and alternatives have been discussed and questions answered. Patient agrees to proceed with procedure.
--- NOTE | 2024-09-10 08:34 | P.PNAN_ITS ---
Anes - Initial Pre Proc Eval Procedure: Operation Date: 09/10/24 09:30 Proposed Procedures p Robotic Assisted Total Laparoscopic Hysterectomy with Bilateral Salpingectomy - Jean Espinal MD Date/Time: 09/10/24 08:34 Surgeon: Jean Espinal MD Pre Op Diagnosis: menorrhagia Patient Data Age: 39 Gender: F Height: 1.6 m Weight: 90.7 kg Allergies Allergy/AdvReac Type Severity Reaction Status Date / Time No Known Allergies Allergy Verified 09/03/24 15:01 Home Medications ?Medication ?Instructions ?Recorded ?Confirmed ?Type montelukast 10 mg tablet 10 mg PO DAILY 04/20/24 09/03/24 History L.acidophil,rhamnosus-B.breve,longum 1 cap PO DAILY 09/03/24 09/03/24 History 20 billion cell sprinkle capsule (Probiotic) budesonide-formoterol HFA 160 2 puff inhalation DAILY 09/03/24 09/03/24 History mcg-4.5 mcg/actuation aerosol inhaler (Symbicort) phentermine 15 mg capsule 15 mg PO DAILY 09/03/24 09/03/24 History metronidazole 0.75 % (37.5 mg/5 1 appful vaginal QHS 5 days #70 09/07/24 Rx gram) vaginal gel grams Patient hx anesthesia problems: none Family hx anesthesia problems: none Results Review: All pre-operative results and documents have been reviewed as part of the pre- operative evaluation. [facility] Past Medical History Medical History HSV-1 infection Encounter for screening examination for sexually transmitted disease History of hypertension History of high cholesterol History of ovarian cyst Anxiety and depression Surgical History Surgical History H/O gastric sleeve (04/22/17) [place] teeth removed (04/09/19) Hx of dilation and curettage (07/02/19) Hscope D&C / menometrorrhagia, dysmenorrhea ; Benign Hx of dilation and curettage (09/14/21) Hscope D&C / menometrorrhagia History of gynecological procedure (09/23/03) salpingectomy ectopic Family History Family History Mother Breast cancer Grandparent Heart disease Grandparent Carcinoma of colon Social History Social History Smoking status: Never smoker Alcohol intake: current Drinks per week: 2 Substance use: former Substance use type: does not use and marijuana Lack of Transportation: No Lack of Food: Never True Current Housing: I Have Housing Concerned About Future Housing: No Difficulty Paying Gas/Electric Bills: No Difficulty Paying for Meds: No Currently Unemployed: No Education: Bachelor's Degree Difficulty w/ Childcare or Family Care: No Living arrangements: with family Additional living arrangements comments: children 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/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: occupation 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 Gender identity (if verbalized by the patient): Female Sexual Orientation (if Verbalized by the Patient): Straight or Heterosexual Spiritual care concerns: No Anes - Eval Final PreProcedure Day of Procedure 09/10/24 08:34 Patient weight: obese Heart: regular rate and rhythm Lungs: clear to auscultation Airway: Mallampati scale class II Neurological: alert and oriented Last oral intake: >/= 8 hours ASA classification: III Emergent: no Anesthetic plan: proceed Anesthesia type and monitoring: general ETT and standard monitoring Results Review: All pre-operative results and documents have been reviewed as part of the pre- operative evaluation. Informed Consent: The patient's anesthetic plan and its attendant risks and benefits were discussed with the patient/family/POA. Questions were solicited and answers provided to the satisfaction of the patient/family/POA.
[2024-09-10] MEDS: LACTATED RINGERS 1,000 ML 30 ML IV CONT ×2 (08:55→11:06)
[2024-09-10] MEDS: KETOROLAC 15 MG/ML VIAL (*BKC) IV PUSH (08:55)
[2024-09-10] MEDS: SCOPOLAMINE 1 MG PATCH 1 PATCH TRANSDERM (08:55)
[2024-09-10] MEDS: ACETAMINOPHEN 500 MG TABLET 1000 MG PO ×3 (08:55→21:02)
[2024-09-10 09:25] LABS: BEDSIDEPREGUCG Negative (Negative)
[2024-09-10] MEDS: ceFAZolin 2 GM/D5W 50 ML 2 GM/50 ML BAG IVPB (09:38)
--- NOTE | 2024-09-10 10:52 | W.PM.PROC2 ---
Procedure Note - Detailed Date of Procedure 09/10/24 Pre-op Diagnosis menorrhagia Post-op Diagnosis Same Procedure Performed 1. Robotic assisted laparoscopic total hysterectomy 2. Right salpingectomy Surgeon Jean Espinal MD Anesthesia General Findings 1. Enlarged irregular contour uterus 2. Left tube surgically absent 3. Ovaries without abnormality Description of Procedure Patient prepped and draped in the usual manner for this procedure. Vaginal instruments were placed for uterine mobility throughout the case. Surgeon moved to the abdomen and trocars were placed without difficulty under direct visualization. De Prasad system was attached instruments were placed. Surgeon moved to the console with findings as noted above. Utero-ovarian ligaments cauterized and cut bilaterally to drop the operative field away from the ovaries. Right salpingectomy was accomplished with cautery and cutting of the right mesial salpinx. Round ligament cauterized and cut bilaterally and bladder flap was developed without difficulty, posterior leaf was also dissected to skeletonize the uterine vessels. Vessel was then cauterized and cut. Anterior colpotomy incision was made and this was carried circumferentially around to separate the cervix from the vagina. Uterus was delivered into the vagina. There was no significant bleeding. Vaginal cuff was then closed using V lock suture from the right angle to the midline and then from the left angle to the midline with good approximation hemostasis noted. Irrigation was undertaken, and hematoma placed. Gas was allowed to escape trocars removed and incisions approximated using 4-0 Monocryl. Patient was sent to recovery room in stable condition. Estimated Blood Loss 100 Drains No Packing No Pathology Yes Complications No immediate complications Condition Stable Disposition PACU [facility] Billing Surgery - Charge Forward: Surgery Billing
[2024-09-10] MEDS: fentaNYL CITRATE INJ (*CRX) 100 MCG/2 ML VIAL 25 MCG IV PUSH ×8 (11:21→11:52)
[2024-09-10] MEDS: HYDROmorphone HCL INJ (*CRX) 1 MG/ML SYR IV PUSH ×2 (12:35→12:43)
--- NOTE | 2024-09-10 13:17 | OBPPTRN ---
Patient transferred to post room #281 via bed. Support person present. Oriented to unit, room, information board, rooming in, admission packet and security measures. Patient verbalizes understanding.
[2024-09-10] MEDS: oxyCODONE HCL (*CRX) 5 MG TAB IR 10 MG PO (13:55)
[2024-09-10] MEDS: DEXTROSE 5%/0.45% SOD CHL 1,000 ML 125 ML IV CONT ×2 (13:56→22:42)
[2024-09-10] MEDS: SIMETHICONE 80 MG TAB.CHEW PO (15:19)
[2024-09-10] MEDS: KETOROLAC 30 MG/ML VIAL (*BKC) IV PUSH ×2 (15:20→21:04)
[2024-09-11] MEDS: oxyCODONE HCL (*CRX) 5 MG TAB IR 10 MG PO (00:44)
[2024-09-11] MEDS: SIMETHICONE 80 MG TAB.CHEW PO ×3 (00:44→11:58)
[2024-09-11 01:20] VITALS: BP 111/77; PULSE 57; RESP 16; TEMP 36.9; O2SAT 96
[2024-09-11] MEDS: ACETAMINOPHEN 500 MG TABLET 1000 MG PO ×2 (04:06→10:18)
[2024-09-11] MEDS: KETOROLAC 30 MG/ML VIAL (*BKC) IV PUSH (04:08)
[2024-09-11 05:20] VITALS: BP 86/51; PULSE 71; RESP 16; TEMP 37; O2SAT 96
[2024-09-11 06:06] LABS: Basophils Percent Auto 0.2 % (0.2-1.2); Eosinophils Percent Auto 0.1 % (0-4.4); Hematocrit 34.3 % (37.0-47.0); Hemoglobin 10.9 g/dL (12.0-15.0); Immature Granulocyte Absolute 0.03 K/mm3 (0.00-0.031); Immature Granulocyte Percent A 0.2 % (0-0.5); Lymphocytes Absolute Auto 1.98 K/mm3 (0.9-3.2); Lymphocytes Percent Auto 15.2 % (18.3-44.2); Mean Corpuscular HGB Conc 31.8 g/dl (32-36); Mean Corpuscular Hemoglobin 29.5 pg (26-34); Mean Platelet Volume 12.3 fl (7.4-10.4); Monocytes Percent Auto 7.5 % (2.6-8.5); Neutrophils Percent Auto 76.8 % (45.5-73.1); Platelet Count Result 151 k/mm3 (150-375); Red Blood Count 3.69 M/mm3 (4.2-5.4); Red Cell Distribution Width 12.6 % (11.5-14.5)
[2024-09-11 06:45] VITALS: BP 105/69; PULSE 61; RESP 12; TEMP 36.9; O2SAT 99
[2024-09-11] MEDS: DOCUSATE SODIUM 100 MG CAPSULE PO (08:08)
[2024-09-11] MEDS: POLYSACCHARIDE IRON COMPLEX 150 MG CAPSULE PO (08:08)
[2024-09-11] MEDS: IBUPROFEN 600 MG TABLET PO (10:18)
== END 2024-09-11 13:47 | disposition home or self-care (01) ==
LOC: ANHSURGERY 07:27 → ANHOB2 20:55
PROVIDERS: PCP Internal Medicine; Visit Provider Obstetrics & Gynecology
PROC: (CPT 58571; principal; 2024-09-10 09:30)
DX: D25.1 Intramural leiomyoma of uterus (principal); D25.0 Submucous leiomyoma of uterus; G89.18 Other acute postprocedural pain; I10 Essential (primary) hypertension; E78.00 Pure hypercholesterolemia, unspecified; F41.8 Other specified anxiety disorders; E66.9 Obesity, unspecified; Z68.36 Body mass index [BMI] 36.0-36.9, adult; Z79.51 Long term (current) use of inhaled steroids; Z98.890 Other specified postprocedural states; Z98.84 Bariatric surgery status; Z80.0 Family history of malignant neoplasm of digestive organs; Z80.3 Family history of malignant neoplasm of breast; Z82.49 Family history of ischemic heart disease and other diseases of the circulatory system
CPT/HCPCS: 58571; S2900; 36415; 85025; 88307; 99199; A9270; J0690; J1100; J1171; J1885; J2003; J2250; J2405; J2704; J3010; J7120

== ENCOUNTER 2024-09-23 20:48 | Emergency (ER) | payer BC, SELFPAY ==
--- NOTE | ~2024-09-23 | CT_ITS ---
CT of the Abdomen and Pelvis: Indication: Postoperative pain Technique: 2.5 mm axial scans were obtained through the abdomen and pelvis following intravenous adm inistration of 100 cc of Omnipaque 350. Dose reduction technique was used on this scan by utilizing a utomated exposure control and iterative reconstruction technique. The dose-length product (DLP) was 8 07.51 mGy-cm. Findings: Scans through the lung bases are unremarkable. The liver, spleen, pancreas, adrenals and kidneys are within normal limits. Gallstones are present. N o evidence of aortic aneurysm. No lymphadenopathy. No bowel obstruction or bowel wall thickening. There is no evidence to suggest acute appendicitis. Images through the pelvis were performed. Urinary bladder unremarkable. Status post hysterectomy. No pelvic mass. No ascites. Impression: Cholelithiasis. No other acute findings. Reviewed, dictated and finalized at [facility]. GING DIRECTOR ATLAS Impression: Cholelithiasis. No other acute findings.
[2024-09-23 20:53] VITALS: BP 136/82; PULSE 86; RESP 20; TEMP 36.1; O2SAT 99
--- NOTE | 2024-09-24 00:04 | ED_ITS ---
HPI - Abdominal Pain General Chief Complaint: Abdominal Pain Stated Complaint: post op pain Time Seen by Provider: 09/23/24 23:53 Source: patient Mode of arrival: ambulatory Limitations: no limitations History of Present Illness HPI narrative: This is a 39-year-old female that presents the emergency department for lower abdominal pain. Reports she recently underwent a hysterectomy on the of last month with Dr. Espinal. She has had some worsening lower abdominal pain/pressure over the last couple of days. She is also experiencing some dysuria. She called her corner cutter and was prompted to be seen in the ER. She took Tylenol today with little relief. Denies fevers or vomiting. Related Data Home Medications ?Medication ?Instructions ?Recorded ?Confirmed ?Last Taken ?Type montelukast 10 mg tablet 10 mg PO DAILY 04/20/24 09/03/24 Unknown History L.acidophil,rhamnosus-B.breve,longum 1 cap PO DAILY 09/03/24 09/03/24 Unknown History 20 billion cell sprinkle capsule (Probiotic) budesonide-formoterol HFA 160 2 puff inhalation DAILY 09/03/24 09/10/24 09/10/24 History mcg-4.5 mcg/actuation aerosol inhaler (Symbicort) phentermine 15 mg capsule 15 mg PO DAILY 09/03/24 09/03/24 Unknown History Allergies Allergy/AdvReac Type Severity Reaction Status Date / Time No Known Allergies Allergy Verified 09/23/24 21:02 Review of Systems 2 Review of Systems: CONSTITUTIONAL: Denies fever GASTROINTESTINAL: Reports abdominal pain. Denies nausea, vomiting, or diarrhea. GENITOURINARY: Reports dysuria All systems reviewed & are unremarkable except as noted in HPI and below PMFSH Past Medical History Medical History (Updated 09/24/24 @ 01:53 by Mariann Stokes PA-C) Encounter for screening examination for sexually transmitted disease History of hypertension History of high cholesterol History of ovarian cyst Anxiety and depression Surgical History Surgical History H/O gastric sleeve (04/22/17) [place] teeth removed (04/09/19) Hx of dilation and curettage (07/02/19) Hscope D&C / menometrorrhagia, dysmenorrhea ; Benign Hx of dilation and curettage (09/14/21) Hscope D&C / menometrorrhagia History of gynecological procedure (09/23/03) salpingectomy ectopic Family History Family History Mother Breast cancer Grandparent Heart disease Grandparent Carcinoma of colon Social History Social History Smoking status: Never smoker Alcohol intake: current Drinks per week: 2 Substance use: former Substance use type: does not use and marijuana Lack of Transportation: No Lack of Food: Never True Current Housing: I Have Housing Concerned About Future Housing: No Difficulty Paying Gas/Electric Bills: No Difficulty Paying for Meds: No Currently Unemployed: No Education: Bachelor's Degree Difficulty w/ Childcare or Family Care: No Living arrangements: with family Additional living arrangements comments: children Occupation/Education: 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 HEAD: Normocephalic, atraumatic. EYES: EOMI. CHEST: Clear to auscultation. No respiratory distress. No wheezes rales or rhonchi HEART: Regular rate and rhythm. No murmur heard. Normal peripheral pulses. ABDOMEN: Soft, nondistended, normal active bowel sounds. Tender to palpation throughout the abdomen, without guarding. Incisions are clean/dry/intact EXTREMITIES: Normal range of motion. No edema. SKIN: Warm, dry, no rash. NEURO: No focal deficits. Alert and oriented x3. PSYCH: Normal mood and affect Course Course Emergency Course: Patient updated on workup thus far. Care taken over by Dr. Mejia at shift change pending CT scan read. Patient resting comfortably Vital Signs Vital signs: Vital Signs Temperature 97.0 F L 09/23/24 20:53 Pulse Rate 86 09/23/24 20:53 Respiratory Rate 20 09/23/24 20:53 Blood Pressure 136/82 09/23/24 20:53 Pulse Oximetry 99 09/23/24 20:53 Oxygen Delivery Room Air 09/23/24 20:53 Temperature 97.0 F L 09/23/24 20:53 Pulse Rate 70 09/24/24 04:23 Respiratory Rate 17 09/24/24 04:23 Blood Pressure 124/84 09/24/24 04:23 Pulse Oximetry 97 09/24/24 04:23 Oxygen Delivery Room Air 09/23/24 20:53 MDM - Abdominal Pain MDM Narrative Medical decision making narrative: Patient presents to the emergency department for abdominal discomfort postop from hysterectomy couple of weeks prior. She is afebrile and nontoxic appearing. Her vitals are stable. White blood cell count is downtrending. Hemoglobin is up trending. No concerning findings on metabolic panel. Urine without evidence of infection. Patient updated on workup thus far. Care taken over by Dr. Mejia at shift change pending CT scan read Differential Diagnosis Differential diagnosis: Likely constipation, diverticulitis, small bowel obstruction and other (intra-abdominal abscess, UTI) Lab Data Attestation: I reviewed the patient's lab results. 09/24/24 00:53 09/24/24 00:53 Labs: Lab Results 09/24/24 09/24/24 Range/Units 00:53 00:56 WBC 10.8 H (4.5-10.0) K/mm3 RBC 3.97 L (4.2-5.4) M/mm3 Hgb 11.9 L (12.0-15.0) g/dL Hct 36.8 L (37.0-47.0) % MCV 92.7 (80-100) fl MCH 30.0 (26-34) pg MCHC 32.3 (32-36) g/dl RDW 12.6 (11.5-14.5) % Plt Count 203 (150-375) k/mm3 MPV 12.4 H (7.4-10.4) fl Immature Gran % (Auto) 0.6 H (0-0.5) % Neut % (Auto) 56.7 (45.5-73.1) % Lymph % (Auto) 28.0 (18.3-44.2) % [place] % (Auto) 5.9 (2.6-8.5) % Eos % (Auto) 8.1 H (0-4.4) % Baso % (Auto) 0.7 (0.2-1.2) % Lymph # (Auto) 3.04 (0.9-3.2) K/mm3 [place] # (Auto) 0.6 (0.1-0.6) K/mm3 Eos # (Auto) 0.9 H (0-0.3) K/mm3 Baso # (Auto) 0.1 (0.0-0.1) K/mm3 Abs Immat Gran (auto) 0.06 H (0.00-0.031) K/mm3 Absolute Neuts (auto) 6.1 (1.3-6.7) K/mm3 Absolute Nucleated RBC 0.000 (0.0-0.012) K/mm3 Nucleated RBC % 0.0 (0.0-0.2) % Sodium 136 L (137-145) mmol/L Potassium 3.8 (3.4-5.0) mmol/L Chloride 108 H (98-107) mmol/L Carbon Dioxide 25 (22-30) mmol/L Anion Gap 3 L (4-12) mmol/L BUN 18 H (7-17) mg/dL Creatinine 0.80 (0.7-1.0) mg/dL Estim Creat Clear Calc 89 ml/min Estimated GFR > 60 (59 - ) Glucose 88 (65-110) mg/dL Calcium 9.3 (8.4-10.2) mg/dL Total Bilirubin 0.4 (0.2-1.3) mg/dL AST 18 (14-36) U/L ALT 14 (6-35) U/L Alkaline Phosphatase 103 (38-126) U/L NT-Pro-B Natriuret Pep 36 (19.9-100) pg/mL Total Protein 7.0 (6.3-8.2) g/dL Albumin 3.8 (3.5-5.1) g/dL Lipase 46 (23-300) U/L Urine Color Yellow (Yellow) Urine Appearance Clear (Clear) Urine pH 6.0 (5.0-9.0) Ur Specific [place] 1.016 (1.001-1.035) Urine Protein Negative (Negative) mg/dL Urine Glucose (UA) Negative (Negative) mg/dL Urine Ketones Negative (Negative) mg/dL Ur Blood (Man) Negative (Negative) Urine Nitrate Negative (Negative) Urine Bilirubin Negative (Negative) Urine Urobilinogen 0.2 (<2.0) mg/dL Leukocyte Esterase Rfl Negative (Negative) [place]/UL POC Urine HCG, Qual Negative (Negative) Imaging Data Radiologist's impression: ITS Impressions Abdomen/Pelvis CT 09/24/24 05:26 Impression: Cholelithiasis. No other acute findings. Critical Care Time Critical Care Time Critical Care Time: No Discharge Plan Discharge Clinical Impression: Post-operative pain Patient Disposition: Home, Self-Care Condition: Stable Instructions: Abdominal Pain (ED) Additional Instructions: Return to the ER if you experience fever, abdominal pain with nausea and vomiting, you are unable to keep down liquids or solids, or any other symptoms that are concerning to you. Use Motrin and Tylenol for pain. Use oxycodone for breakthrough pain. Follow up with your corner cutter Patient Language: Mongolian Prescriptions: New acetaminophen 500 mg tablet 1,000 mg PO TID PRN (Reason: miguel) 7 Days Qty: 42 0RF oxycodone 5 mg tablet 5 mg PO Q4H PRN (Reason: pain) Qty: 14 0RF ibuprofen 800 mg tablet 800 mg PO TID PRN (Reason: pain) 7 Days Qty: 21 0RF No Action montelukast 10 mg tablet 10 mg PO DAILY phentermine 15 mg capsule 15 mg PO DAILY Rx Instructions: must administer 2 hours after breakfast Probiotic 20 billion cell capsule, sprinkle 1 cap PO DAILY budesonide-formoterol [Symbicort] 160-4.5 mcg/actuation HFA aerosol inhaler 2 puff INHALATION DAILY ibuprofen 600 mg Tablet 600 mg PO Q6H Qty: 30 0RF oxycodone 5 mg Tablet 5 mg PO Q4H PRN (Reason: Pain Rated 4-6) Qty: 20 0RF Follow-up/Referrals: Jean Espinal MD [Physician] - Eli,MD Steve [Primary Care Provider] -
[2024-09-24 00:58] LABS: BEDSIDEPREGUCG Negative (Negative)
[2024-09-24] MEDS: MORPHINE SULFATE (*CRX) 4 MG/ML INJ IV PUSH (01:01)
[2024-09-24] MEDS: ONDANSETRON INJ 4 MG/2 ML VIAL IV PUSH (01:02)
[2024-09-24 01:14] LABS: Add Urine Microscopic? NO; Appearance Urine Clear (Clear); Bilirubin Urine Negative (Negative); Blood Urine Negative (Negative); Color Urine Yellow (Yellow); Glucose Urine UA Negative (Negative); Ketones Urine Negative (Negative); Leukocyte Esterase Ur Negative LEU/UL (Negative); Nitrate Urine Negative (Negative); Protein Urine Negative (Negative); Specific Grav Ur 1.016 (1.001-1.035); Urobilinogen Urine 0.2 mg/dL (<2.0)
[2024-09-24 01:20] LABS: Basophils Absolute Auto 0.1 K/mm3 (0.0-0.1); Basophils Percent Auto 0.7 % (0.2-1.2); Eosinophils Absolute Auto 0.9 K/mm3 (0-0.3); Eosinophils Percent Auto 8.1 % (0-4.4); Hematocrit 36.8 % (37.0-47.0); Hemoglobin 11.9 g/dL (12.0-15.0); Immature Granulocyte Absolute 0.06 K/mm3 (0.00-0.031); Immature Granulocyte Percent A 0.6 % (0-0.5); Lymphocytes Absolute Auto 3.04 K/mm3 (0.9-3.2); Mean Corpuscular HGB Conc 32.3 g/dl (32-36); Mean Corpuscular Volume 92.7 fl (80-100); Mean Platelet Volume 12.4 fl (7.4-10.4); Monocytes Absolute Auto 0.6 K/mm3 (0.1-0.6); Monocytes Percent Auto 5.9 % (2.6-8.5); Neutrophils Absolute Auto 6.1 K/mm3 (1.3-6.7); Neutrophils Percent Auto 56.7 % (45.5-73.1); Platelet Count Result 203 k/mm3 (150-375); Red Blood Count 3.97 M/mm3 (4.2-5.4); Red Cell Distribution Width 12.6 % (11.5-14.5); White Blood Count 10.8 K/mm3 (4.5-10.0)
[2024-09-24 01:25] LABS: Alanine Aminotransferase 14 U/L (6-35); Albumin Level 3.8 g/dL (3.5-5.1); Alkaline Phosphatase 103 U/L (38-126); Anion Gap 3 mmol/L (4-12); Aspartate Amino Transferase 18 U/L (14-36); Bilirubin,Total 0.4 mg/dL (0.2-1.3); Blood Urea Nitrogen 18 mg/dL (7-17); Calcium 9.3 mg/dL (8.4-10.2); Carbon Dioxide 25 mmol/L (22-30); Chloride 108 mmol/L (98-107); Estimated CRCL calculation 89 ml/min; Estimated Glomerular Filt Rate > 60; Glucose 88 mg/dL (65-110); Lipase 46 U/L (23-300); Potassium 3.8 mmol/L (3.4-5.0); Sodium 136 mmol/L (137-145)
[2024-09-24 02:01] LABS: NT Pro B Type Natriuretic Pept 36 pg/mL (19.9-100)
[2024-09-24] MEDS: ACETAMINOPHEN 500 MG TABLET 1000 MG PO (02:22)
[2024-09-24 04:23] VITALS: BP 124/84; PULSE 70; RESP 17; O2SAT 97
--- OUTSIDE RECORDS SUMMARY | 2024-09-30 17:28 | XMS_ITS | Encounter Summary ---
Author Organization [facility] Address [address] [place] [address]. [place], [place] [id number] [place] [address] Care Team Providers Care Biofuels Production Associate Name Role Phone Steve Benitez MD Primary Care Provider [phone] Reason for Visit * Reason Comments Flu Like Symptoms Encounter Details Date Type Department Care Team (Late st Contact Info) Description 12/02/2023 8:39 PM CDT - 12/02/2023 10:04 PM CDT Emergency [facility] [place] [address] Nupur Sanchez, [facility] [address] [address] Flu Like Symptoms Discharge Disposition: Home or [...] on file 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 * Flu (Lao) documented in this encounter Medications at Time [...] XR CHEST PORTABLE Final Result by User, [id number] (12/01 2101) Examination: Chest x-ray 1 view [...] 12/09/2023 at 2359, Eprescribe Class: Eprescribe Pharmacy: [facility] #[id number] [place] [address] (Ph #: [phone]) oseltamivir (TAMIFLU) 75 MG capsule Take 1 capsule (75 mg total) by mouth 2 (two) times daily for 5days., Starting 12/02/2023, Until 12/07/2023, Eprescribe Class: Eprescribe Pharmacy: [facility] #[id number] [place] [id number] (Ph #: [phone]) ED Course / Medical Decision Making Medical [...] I dictated portions of this note using [employer] speech recognition software. Occasional wrong word or [...] Lizarraga MD, 12/02/2023 9:01 PM Nupur Sanchez [facility] GENERAL IMAGING Final Resul t * (ABNORMAL) INFLUENZA A & B (12/02/2023 8:46 PM CDT) SPECIMEN TYPE SWAB 12/02/2023 9:09 PM CDT [facility] INFLUENZA A NEGATIVE NEGATIVE 12/02/2023 9:32 PM CDT [facility] INFLUENZA B POSITIVE(A) NEGATIVE 12/02/2023 9:32 PM CDT [facility] NASOPHARYNGEAL SWAB / Unknown 12/02/2023 8:46 PM CDT Nupur Sanchez [facility] MICROBIOLOGY - GENERAL ORDE RABLES Final Result [facility] [address] [place] [address], [place] [phone] * CORONAVIRUS (COVID 19) (12/02/2023 8:46 PM CDT) CORONAVIRUS SARS COV 2 RNA NEGATIVE NEGATIVE 12/02/2023 9:32 PM CDT [facility] Comment: NEGATIVE RESULTS DO NOT [...] SPECIMEN TYPE NASAL 12/02/2023 8:46 PM CDT [facility] NASAL STRUCTURE / Unknown 12/02/2023 8:46 PM CDT Nupur Sanchez [facility] MICROBIOLOGY - GENERAL ORDE NICK Final Result [facility] [address] [place] [address], documented in this encounter Visit Diagnoses Diagnosis [...] this section may contain times in both TRAVEL SPECIALIST and CDT. Scheduled Medication Order 11/30/2023 12/01/2023 [...] documented as of this encounter Care Teams Biofuels Production Associate Relationship Specialty Start Date End Date Steve Benitez MD PCP - General INTERNAL MEDICINE 09/27/18 documented as of this encounter
--- OUTSIDE RECORDS SUMMARY | 2024-09-30 17:28 | XMS_ITS | Clinical Summary ---
Author Organization [facility] Address [address] [place] [address]. 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
--- OUTSIDE RECORDS SUMMARY | 2024-09-30 17:28 | XMS_ITS | Encounter Summary ---
Author Organization [facility] Address [address] [place] [address]. 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 * Viral Syndrome Discharge Instructions (Frisian) * Costochondritis (Frisian) documented in this encounter Medications at Time [...] Thornton MD - 12/05/2023 6:09 AM CDT [place], [place] EMERGENCY DEPARTMENT ENCOUNTER Chief Complaint Chief [...] encounter of 12/05/23 ECG 12 lead Narrative [address] Test Date: 2023-12-05 Pat Name: SARITHA DUNLAP Department: Room: Gender: Female Advertising Operations Manager: [id number] : 1985 Requested By: ISABELLE ANDRADE Order Number: [id number] Reading MD: Measurements Intervals [place] Rate: 81 P: 49 WI: 156 QRS: 4 QRSD: 85 T: 59 [...] XR CHEST PORTABLE Final Result by User, [id number] (12/04 2983) INDICATION: Chest pain. COMPARISON: Chest radiograph 12/02/2023. [...] 05, 2023 0545 EKG--no STEMI, PVCs in [facility]--interp by me. [CL] ED Course User Index [...] MG ophthalmic strip ( Not Given 12/05/23 0676) Clinical Impression Influenza (Primary) Costochondritis Discharge Medication List as of 12/05/2023 6:50 AM START taking these medications Details cyclobenzaprine (FLEXERIL) 5 MG tablet Take 1 tablet (5 mg total) by mouth 3 (three) times daily asneeded for Muscle Spasms., Starting Shruti 12/05/2023, Until 12/15/2023 at 2359, Eprescribe Class: Eprescribe Pharmacy: [facility] #[id number] (Ph #: [phone]) Disposition: Discharge Follow-Up: STEVE BENITEZ MD I, [...] AM CDT) 12/05/2023 5:43 AM CDT Narrative [facility] - 12/05/2023 10:04 PM CDT ?[facility] ? [address] [place] ? Test Date: ?2023-12-05 Pat Name: ? SARITHA DUNLAP ?Department: ?? 41 ? Room: ? Gender: ? Female ? Advertising Operations Manager: ?? [id number] : ?1985 ? Requested By: ISABELLE ANDRADE Order Number: [id number] ? Reading MD: ?? Nito Garcia ? Measurements Intervals ?[place] ? Rate: ? 81 ? P: ?49 WI: ? 156 ?QRS: ?4 QRSD: ? 85 ? T: ?59 QT: ? 372 ? QTc: ?434 ? Interpretive Statements SINUS RHYTHM WITH FREQUENT SUPRAVENTRICULAR PREMATURE COMPLEXES IN A BIGEMINAL PATTERN POSSIBLE RIGHT VENTRICULAR CONDUCTION DELAY ??[RSR (QR) IN V1/V2] NONSPECIFIC T-WAVE ABNORMALITY ABNORMAL RHYTHM ECG Compared to ECG 04/19/2021 09:50:34 T-wave abnormality now present Procedure Note Nito Garcia MD - 12/05/[address] [facility] [facility] Test Date: 2023-12-05 Pat Name: SARITHA DUNLAP Department: 41 Room: Gender: Female Advertising Operations Manager: [id number] : 1985 Requested By: ISABELLE ANDRADE Order Number: [id number] Reading MD: Nito Garcia Measurements Intervals [place] Rate: 81 P: 49 WI: 156 QRS: 4 QRSD: 85 T: 59 QT: 372 QTc: 434 Interpretive Statements SINUS RHYTHM WITH FREQUENT SUPRAVENTRICULAR PREMATURE COMPLEXES IN A BIGEMINAL PATTERN POSSIBLE RIGHT VENTRICULAR CONDUCTION DELAY [RSR (QR) IN V1/V2] NONSPECIFIC T-WAVE ABNORMALITY ABNORMAL RHYTHM ECG Compared to ECG 04/19/2021 09:50:34 T-wave abnormality now present Ruben Thornton MD ECG ORDERABLES Final Result [facility] documented in this encounter Visit Diagnoses Diagnosis Influenza- Primary Influenza with other respiratory manifestations 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
--- OUTSIDE RECORDS SUMMARY | 2024-09-30 17:28 | XMS_ITS | Encounter Summary ---
Author Organization [facility] Address [address] [place] [address]. 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
--- OUTSIDE RECORDS SUMMARY | 2024-09-30 17:28 | XMS_ITS | CONTINUITY OF CARE DOCUMENT ---
Author Name abigail hayes Address Unknown Organization [facility] Address [id number] [place] [address] [address] [place] [address] Phone [phone] Care Team Providers Care Supervisor Ordnance Truck Installation Name Role Phone Deondre DENISE, Iglesia Unavailable Rivas GUTIERREZ MD Unavailable [phone] INSURANCE PROVIDERS Payer name Policy type / Coverage type Rindge red green party ID [facility] Medicaid 1 [id number] [employer] Other [id number]
--- OUTSIDE RECORDS SUMMARY | 2024-09-30 17:28 | XMS_ITS | Encounter Summary ---
Author Organization [facility] Address [address] [place] [address]. 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
--- OUTSIDE RECORDS SUMMARY | 2024-09-30 17:28 | XMS_ITS | Continuity of Care Document ---
Author Organization [facility] [employer] Address [address] [place] [address] Care Team Providers Care Fish Cutting Machine Operator Name Role Phone ISRAEL SCHUSTER Collection Specialist BENNIE BENITEZ Primary Care Provider Assessment Encounter Date [...] panel w/ direct LDL, serum 2023 024 [facility], [address], [place], [address], 09/02/2024 04:05:53 hepatitis C Ab, serum 2023 024 [facility], [address], [place], [address], 09/02/2024 04:05:53 urinalysi s, dipstick 2023 024 [facility] [employer], [facility], [address], [place], [address], 08/27/2024 08:55:14 microalbu min/creat inine, mass ratio, urine 2023 [facility], [address] [facility], [place], [address], 08/26/2024 15:46:04 CMP, serum or plasma 2023 [facility], [address] [facility], [place], [address], 09/02/2024 04:05:52 CBC 2023 [facility], [address] [facility], [place], [address], 09/02/2024 04:05:52 vitamin D, 25-hydrox y, total, serum 2023 [facility], [address] [facility], [place], [address], 09/02/2024 04:05:53 magnesium , QN, serum or plasma 2023 024 [facility], [address] [place], [address], 09/02/2024 04:05:53 vitamin B12, serum 2023 [facility], [address] [place], [address], 09/02/2024 04:05:53 Referral physical therapist referral 2023 [facility], [address], [address], [address], 09/23/2024 04:07:36 Procedures None recorded. Surgeries None recorded. Imaging MAMMO, screening , digital, bilateral 2023 [facility] Scheduling, [facility], [place], [address], 09/02/2024 04:05:54 Medication Orders Airsupra 90 mcg-80 mcg/actua tion HFA aerosol inhaler 2023 [id number], [address] [place], [id number], 08/26/2024 15:45:37 phentermi ne [address] [facility] #[id number], [address] [place], [place], [id number], 08/26/2024 15:45:44 topiramat e [address] [facility] #[id number], [address] [place] [address], [id number], 08/26/2024 15:45:37 Patient TargetsNo targets recorded. Patient Instructions Encounter Date Encounter Id Patient Instructions Last Modified By Organization Details Last Modified Time 08/26/2024 [id number] mammogram: about this test [email or web address] Not available [...] Referral for Lumbago with sciatica Referring Physician: Bennie Benitez, Internal Medicine, Encounter Date: 08/26/2024 Results Created Date Observation Date Name Description Value Unit Range Abnormal Flag Note LastModifiedBy Organization Detail LastModifiedTime 08/27/20 24 08/27/2024 urina lysis , dipst ick Leukocytes Negati ve Not Available [facility], [facility] [address], [place], [address], 08/26/2024 15:42:39 08/27/20 24 08/27/2024 urina lysis , dipst ick Nitrite negati ve Not Available [facility], [facility] [address] [facility] [address], [place], [address], 08/26/2024 15:42:39 08/27/20 24 08/27/2024 urina lysis , dipst ick Urobilinogen 4 Not Available [facility] [address] [facility] [address], [place], [address], 08/26/2024 15:42:39 08/27/20 24 08/27/2024 urina lysis , dipst ick Protein Trace Not Available [facility] [address] [facility] [address], [place], [address], 08/26/2024 15:42:39 08/27/20 24 08/27/2024 urina lysis , dipst ick pH 5.0 Not Available [facility] [address] [facility] [address], [place], [address], 08/26/2024 15:42:39 08/27/20 24 08/27/2024 urina lysis , dipst ick Blood Negati ve Not Available [facility] [address] [facility] [address], [place], [address], 08/26/2024 15:42:39 08/27/20 24 08/27/2024 urina lysis , dipst ick Specific [place] 1.005 Not Available [facility] [address], [place], [address], 08/26/2024 15:42:39 08/27/20 24 08/27/2024 urina lysis , dipst ick Ketone Negati ve Not Available [facility] [address], [place], [address], 08/26/2024 15:42:39 08/27/20 24 08/27/2024 urina lysis , dipst ick Bilirubin Negati ve Not Available [facility] [address], [place], [address], 08/26/2024 15:42:39 08/27/20 24 08/27/2024 urina lysis , dipst ick Glucose Negati ve Not Available [facility] [address] [facility] [address], [place], [address], 08/26/2024 15:42:39 08/27/20 24 08/27/2024 urina lysis , dipst ick Appearance Cloudy Not Available [facility] [address] [facility] [address], [place], [address], 08/26/2024 15:42:39 08/27/20 24 08/27/2024 urina lysis , dipst ick Color Yellow Not Available [facility] [address] [facility] [address], [place], [address], 08/26/2024 15:42:39 Result Notes None recorded. Problems Name Problem SNOMED Code Status Onset Date Resolution Date Notes Provider Name and Address Organization Details Recorded Time Asthma 584991772 Active Marguerite stern [facility] 6 12:21:02 Essential hypertensi on 54699374 Active Marguerite stern [facility] 6 12:21:16 Overweight 490840332 Active 2015 Bennie Benitez MD [address], [place], [address], [facility] 6 12:58:08 Ex-smoker 2050258 Active 2015 Bennie Benitez MD [address], [facility] [place], [address], [facility] 6 12:58:57 Cyst of thyroid 66040603 Active 2016 on U/S 08/2016 Bennie Benitez MD [address], [place], [address], [facility] 7 17:23:47 Obstructiv e sleep apnea of adult 8946107520552 Active 2016 Bennie Benitez MD [address], [place], [address], [facility] 7 14:53:58 History of bariatric surgical procedure 896905540 Active 2016 sleeve 04/22/17 Bennie Benitez MD [address], [place], [address], [facility] 7 10:53:32 Tattoo of skin 818873781358 Active 2018 Bennie Benitez MD [address], [place], [address], [facility] 9 15:33:39 Gastroesop hageal reflux disease without esophagiti s 802225667 Active 2020 Bennie Benitez MD [address], [place], [address], [facility] 1 19:24:59 Cholelithi asis without obstructio n 40511798 Active [address] 04/19/21 Bennie Benitez MD [address], [place], [address], [facility] 1 13:25:01 History of SARS-CoV-2 1567150273152 31472 Active 2023 Bennie Benitez MD [address], [place], [address], [facility] 4 12:32:09 Body mass index 30+ - obesity 610553514 Active 2023 Bennie Benitez MD [address], [place], [address], [facility] 4 12:35:33 Chronic constipati on 853981359 Active 2023 Bennie Benitez MD [address], [place], [address], [facility] 4 12:40:35 Low back pain 149417315 Active 2023 Bennie Benitez MD [address], [place], [address], [facility] 4 12:42:20 Problem Notes None recorded. Procedures Surgical History Date Name Laterality Status Provider Name and Address Organization Details Recorded Time 1 Date of Last Mammogram completed RAKAN ROE [facility] 12/05/2020 19:11:22 7 Date of Last Pap Smear completed ROSA ISELA LO [facility] 04/17/2017 09:20:16 Imaging Results None recorded. Procedure [...] gram) vaginal gel IVB FOR 5 DAYS active Not Available Not Available No t Available ondansetr on HCl 4 mg tablet [...] Available Not Available ibuprofen 600 mg tablet active Not Available Not Available Not Available oxycodone [...] Not Available Not Available Not Available oxycodone 5 mg tablet active Not Available Not Available Not Available cyclobenz [...] Updated DateTime 4 167.64 cm 32.9 kg/m2 56414.8 4 g 98.5 [degF] 16 /min 98 /min 124 mm[Hg] 90 mm[Hg] Esther Reina [facility] 4 15:13:44 Social History Question Answer Notes LastModified by Organizat ion Details LastModified Time Tobacco Smoking Status Former Smoker Marguerite Gutierrez jarred [facility] 09/12/2016 12:25:13 What Is Your Level Of Alcohol Consumption? Occasional [email or web address] Information not available 09/12/2016 In The 14 [...] Live Alone Or With Others? With Others [email or web address] Information not available 09/12/2016 What Was The [...] available 12/2023 15:01:36 Paternal Grandmother Heart disease [email or web address] Not available 2015 12:27:05 Brother Essential hypertension [...] Time SARS-COV-2 (COVID-19) vaccine, UNSPECIFIED 11/23/2020 completed Bennie Benitez MD [address], [place], [address], [facility] 12/05/2020 19:18:14 Past Encounters Encounter ID Performer Location Encounter Start Date Encounter Closed Date Diagnosis/Indication Diagnosis SNOMED-CT Code Diagnosis ICD10 Code Diagnosis Note [id number] Bennie Benitez MD [facility], [facility] [address] [place] [address] 08/26/2024 14:59:50 08/26/2024 15:50:28 Asthma 898635650 J45.909 proair PRN and singulairl imits outside exposure to prevent asthma exacerbati onlast PFT 12/17/23 Body mass index 30+ - obesity 620401741 Z68.33 education Cholelithi asis without obstruction 33691894 K80.20 asymptomat ic Essential hypertension 33334347 I10 encourage home monitoring Dash Dietlast EKG 12/05/23 Gastroesop hageal reflux disease without esophagitis 443735342 K21.9 stable History of bariatric surgical procedure 016575150 Z98.84 sleeve 03/2017 Obstructiv e sleep apnea of adult 7531802769 103 G47.33 not using her CPAPbetter after weight loss Tattoo of skin 324575086 1 02 L81.8 Cholesterol screening 27 6804887 Z13.220 Screening mammography 24 933751 Z12.31 Screening for malignant neoplasm of cervix 210673194 Z12.4 per pt had PAP 07/2024 Active or passive immunization 943407140 Z23 up to date Lumbago with sciatica 20 0930711 M54.42 Health Concerns Section Related Observation LastModified by Organization Detai ls LastModified Time None Recorded Concern Status LastModified by Organization Details LastModified Time None Recorded Payers Encounter Date Sequence Insurance Name Policy Number Policy Banks Covered Member ID Banks Member ID Guarantor Name 08/26/2024 1 [place] [id number] Saritha Ellington [id number] Saritha Ellington Notes Date Note Type Note Provider Name and Address Organization Details Recorded Time 08/26/2024 text/html Hypertension F/UReported bypatient.Medicati ons:taking medications as directed; no side effects from medication Lifestyle:regular exercise; limiting/avoiding salt; compliant with low salt diet Associated Symptoms:no dizziness; no lightheadedness; no chest pain; no shortness of breath; no palpitations; no edema; no calf pain with exertion; no headache Bennie Benitez MD [address] [place] [address], [place], [address], [facility] 08/26/2024 15:45:59 OBGyn Episode No OBEpisode recorded.
--- OUTSIDE RECORDS SUMMARY | 2024-09-30 17:28 | XMS_ITS | Encounter Summary ---
Author Organization [facility] Address [address] [place] [address]. 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
--- OUTSIDE RECORDS SUMMARY | 2024-09-30 17:28 | XMS_ITS | Encounter Summary ---
Author Organization [facility] Address [address] [place] [address]. [place], [place] [address] [place] [address] Care Team Providers Care Resaw Tailer Name Role Phone Steve Benitez MD Primary Care Provider [phone] Reason for Visit * Reason Comments Urinary Symptoms Encounter Details Date Type Department Care Team (Latest Contact Info) Description 09/27/2018 11:36 AM NON PROFIT JOB TITLES - 09/27/2018 12:18 PM NON PROFIT JOB TITLES Hospital Encounter [place] [id number] [place] [address] Gustavo Gore PA-C [address] [address] Urinary Symptoms Discharge Disposition: Home or Self [...] on file Legal Sex Female 11:32 AM NON PROFIT JOB TITLES Gender Identity Not on file Sexual Orientation Not on file documented as of this encounter Last Filed Vital Signs Vital Sign Reading Time Taken Comments Blood Pressure 144/91 09/27/2018 11:37 AM NON PROFIT JOB TITLES Pulse 72 09/27/2018 11:37 AM NON PROFIT JOB TITLES Temperature 36.9 ??C (98.4 ??F) 09/27/2018 11:[address] Respiratory Rate 20 09/27/2018 11:37 AM NON PROFIT JOB TITLES Oxygen Saturation 100% 09/27/2018 11:37 AM NON PROFIT JOB TITLES Inhaled Oxygen Concentration - - Weight 80.7 kg (178 lb) 09/27/2018 11:37 AM NON PROFIT JOB TITLES Height 160 cm (5' 3 ) 09/27/2018 11:37 AM NON PROFIT JOB TITLES Body Mass Index 31.53 09/27/2018 11:37 AM NON PROFIT JOB TITLES documented in this encounter Discharge Instructions * Discharge Instructions* Gustavo Gore PA-C - 09/27/2018 12:16 PM NON PROFIT JOB TITLES Use antibiotics as directed for urinary tract infection. Use antibiotics as directed for bacterial vaginosis. Use Diflucan 1 time as directed. Follow-up with your primary care physician for further evaluation of symptoms and follow- up with STONEMASON SUPERVISOR at your upcoming appointment regarding current symptoms. Return to ED if symptoms change or worsen. PROFIT JOB TITLES * Attachments The following attachments cannot be sent through Care Everywhere. * Urinary Tract Infection Discharge Instructions, Adult (Filipino) * Bacterial Vaginosis Discharge Instructions (Filipino) documented in this encounter Medications at Time [...] of Present Illness Patient is a 33-year-old -Chinese female who presents to the urgent care with reports of increased urinary frequency, intermittent lumbar back pain and vaginal discharge over the past 1 week.Patient reports her STONEMASON SUPERVISOR prescribed metronidazole gel and Diflucan which she [...] CLEAN CATCH COLOR YELLOW TRANSPARENCY CLEAR Specific [place] (U) 1.020 1.001 - 1.030 U PH [...] Value Ref Range PREG TEST NEGATIVE Specific [place] (U) 1.020 >1.009 IMAGING STUDIES No orders [...] infection. Patient agreed to follow-up with her STONEMASON SUPERVISOR Dr. Espinal and has upcoming appointment. Patient was given discharge instructions and return precautions and had no questions at this time. Patient told to return to the ED if symptoms change or worsen. Clinical Impression UTI (urinary tract infection) (Primary) Vaginal discharge Disposition: Discharge Gustavo Gore PA-C 09/27/18 1217 Cosigned by David Navarro MD at 09/27/2018 1:11 PM NON PROFIT JOB TITLES PROFIT JOB TITLES PROFIT JOB TITLES * Veronica Cerrato RN - 09/27/2018 11:44 AM CST PATIENT C/O LOW BACK PAIN, FREQUENCY, VAGINAL DISCHARGE WITH ODOR THAT IS WHITE. FOR PAST 3 WEEKS. BUILDING SUPERINTENDENT CALLED HER IN A SCRIPT FOR THE YEAST. PROFIT JOB TITLES documented in this encounter Plan of Treatment Not on file documented as of this encounter Procedures Procedure Name Priority Date/Time Associated Diagnosis Comments TEST URINE STAT 09/27/2018 11:46 AM NON PROFIT JOB TITLES URINE BACTERIA CULTURE Routine 09/27/2018 11:46 AM NON PROFIT JOB TITLES URINALYSIS AUTO DIP STAT 09/27/2018 1 1:46 AM NON PROFIT JOB TITLES documented in this encounter Results * CULTURE URINE (09/27/2018 11:46 AM NON PROFIT JOB TITLES) SPEC DESCRIPTION URINE CLEAN CATCH 09/27/2018 12:08 PM NON PROFIT JOB TITLES [facility] SPECIAL REQUESTS NO SPECIAL REQUEST 09/27/2018 12:08 PM NON PROFIT JOB TITLES [facility] CULTURE RESULT POLYMICROBIAL GROWTH CONSISTENT WITH NORMAL GENITAL DANI. ?? SUSCEPTIBILITIES NOT ROUTINELY PERFORMED. 09/29/2018 3:43 PM NON PROFIT JOB TITLES [facility] URINE SPECIMEN OBTAINED BY CLEAN CATCH PROCEDURE / Unknown 09/27/2018 11:46 AM NON PROFIT JOB TITLES 09/27/2018 12:08 PM NON PROFIT JOB TITLES Gustavo Gore PA-C MICROBIOLOGY - GENERAL ORDERABLES Final Result Performing Organization Address City/[facility]/ZIP Co de Phone Number [facility] [address] [place] [address], [place] [phone] [place] [address], [place] * TEST URINE (09/27/2018 11:46 AM NON PROFIT JOB TITLES) PREG TEST NEGATIVE 09/27/2018 12:05 PM NON PROFIT JOB TITLES [facility] SPECIFIC GRAVITY (U) 1.020 >1.009 09/27/2018 12:05 PM [facility] URINE SPECIMEN OBTAINED BY CLEAN CATCH PROCEDURE / Unknown 09/27/2018 11:46 AM NON PROFIT JOB TITLES Gustavo Gore PA-C URINE ORDERAB[place] [address], [place] * (ABNORMAL) URINALYSIS AUTO DIP (09/27/2018 11:46 AM NON PROFIT JOB TITLES) SPECIMEN TYPE URINE CLEAN CATCH 09/27/2018 11:46 AM [facility] COLOR (U) YELLOW 09/27/2018 12:07 PM NON PROFIT JOB TITLES [facility] Comment: TESTING PERFORMED AT [facility] [address] [place] [address] YOSVANY OVIEDO M.D., CLAMP OPERATOR TRANSPARENCY CLEAR 09/27/2018 12:07 PM [facility] SPECIFIC GRAVITY (U) 1.020 1.001 - 1.030 09/27/2018 12:07 PM [facility] U PH 7.0 5.0 - 9.0 09/27/2018 12:07 PM [facility] LEUKOCYTES (U) LARGE(A) NEGATIVE 09/27/2018 12:07 PM [facility] NITRITES NEGATIVE NEGATIVE 09/27/2018 12:07 PM [facility] PROTEIN (U) NEGATIVE <30 MG/DL 09/27/2018 12:07 PM [facility] URINE GLUCOSE NEGATIVE NEGATIVE MG/DL 09/27/2018 12:07 PM [facility] KETONES MG/DL (U) NEGATIVE NEGATIVE MG/DL 09/27/2018 12:07 PM [facility] UROBILINOGEN 0.2(A) NEGATIVE MG/DL 09/27/2018 12:07 PM [facility] BILIRUBIN (U) NEGATIVE NEGATIVE MG/DL 09/27/2018 12:07 PM [facility] BLOOD (U) TRACE(A) NEGATIVE 09/27/2018 12:07 PM [facility] CULTURE & SENSITIVITY INDICATED? SPECIMEN SETUP FOR CULTURE 09/27/2018 12:07 PM [facility] URINE SPECIMEN OBTAINED BY CLEAN CATCH PROCEDURE / Unknown 09/27/2018 11:46 AM NON PROFIT JOB TITLES us Gustavo Gore PA-C URINE ORDERABLES Final [place] [address], documented in this encounter Visit Diagnoses Diagnosis UTI (urinary tract infection)- Primary Urinary tract infection, site not specified Vaginal discharge Leukorrhea, not specified as infective documented in this encounter Care Teams Resaw Tailer Relationship Specialty Start Date End Date Steve Benitez MD PCP - General INTERNAL MEDICINE 09/27/18 documented as of this encounter
--- OUTSIDE RECORDS SUMMARY | 2024-09-30 17:28 | XMS_ITS | Encounter Summary ---
Author Organization [facility] Address [address] [place] [address]. [place], [place] [id number] [place] [address] Care Team Providers Care Construction Craft Laborer Name Role Phone Steve Benitez MD Primary Care Provider [phone] Reason for Referral * Imaging (Emergency) - Closed Specialty Diagnoses / Procedures Referred By Christina mcnally Referred To Contact RADIOLOGY Procedures CTA CHEST Kaylan Pendleton FNP [address] [address] Phone: tel: fax: Referral ID Status Reason Start Date Expiration Date Visits Re quested Visits Authorized [id number] Closed 04/19/2021 05/20/2022 1 1 Reason for Visit * Reason Comments Musculoskeletal Pain Encounter Details Date Type Department Care Team (Late st Contact Info) Description 04/19/2021 9:44 AM CDT - 04/19/2021 12:51 PM CDT Emergency [facility] [place], [place] [id number] Kaylan Pendleton FNP [address] [phone] Musculoskeletal Pain Discharge Disposition: Home or Self [...] on file Legal Sex Female 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 Gender Identity Not on file Sexual Orientation [...] Not Caused by the Heart Discharge Instructions (Angolan) * Muscle Strain Discharge Instructions (Angolan) documented in this encounter Medications at Time [...] encounter of 04/19/21 ECG 12 lead Narrative [address] Test Date: 2021-04-19 Pat Name: SARITHA DUNLAP Department: Room: [facility] Gender: Female Industrial Cook: : 1985 Requested By: KAYLAN PENDLETON Order Number: [id number] Reading MD: Anjum Seals Measurements Intervals [place] Rate: 73 P: 65 OR: 149 QRS: 12 QRSD: 96 T: 21 [...] STUDIES CTA CHEST Final Result by User, [id number] (04/19 1222) EXAMINATION: CTA CHEST WITH CONTRAST, [...] XR CHEST PA+LAT Final Result by User, [id number] (04/19 1048) Examination: XR CHEST PA+LAT Exam [...] AM CDT Patient ambulatory to ED with key account executive left side chest and back pain. Reports pain increases when movingarm. States she was lifting boxes two weeks ago when pain began. Denies any SOB at this time. Denies any cardiac history. * JULIO Joyce - 04/19/2021 9:48 AM CDT [place], [place] EMERGENCY DEPARTMENT ENCOUNTER Medical Screening Examination [...] By: Mason Gould MD, 04/19/2021 12:16 PM Narrative 04/19/2021 12:21 [...] Gould MD, 04/19/2021 12:16 PM Kaylan Pendleton HEALTH SERVICE WORKER CT Final Res ult * XR CHEST [...] Lizarraga MD, 04/19/2021 10:38 AM Kaylan Pendleton HEALTH SERVICE WORKER GENERAL IMAGING Final Res ult * (ABNORMAL) D-DIMER, QUANTITATIVE (04/19/2021 10:09 AM CDT) D-DIMER 657(HH) 0 - 500 ng{FEU}/mL 04/19/2021 10:49 AM CDT [facility] Comment: D-Dimer values less than [...] called 04/19/2021 10:50 AM to EMERGENCY ROOM (30[address]/[facility] CRUZ) by [id number]. Read Back: Yes 04/19/2021 10:0 9 AM CDT us Kaylan Pendleton HEALTH SERVICE WORKER LABORATORY Final Res ult [facility] [address] [place] [address], * (ABNORMAL) COMPREHENSIVE METABOLIC PANEL (04/19/2021 10:09 AM CDT) GLUCOSE 81 70 - 99 MG/DL 04/19/2021 10:49 AM CDT [facility] BUN 12 7 - 18 MG/DL 04/19/2021 10:49 AM CDT [facility] CREATININE S/P/B 0.65 0.55 - 1.02 MG/DL 04/19/2021 10:49 AM CDT [facility] SODIUM S/P/B 138 136 - 145 MMOL/L 04/19/2021 10:49 AM CDT [facility] POTASSIUM S/P/B 4.0 3.5 - 5.1 MMOL/L 04/19/2021 10:49 AM CDT [facility] CHLORIDE S/P/B 109(H) 100 - 108 MMOL/L 04/19/2021 10:49 AM CDT [facility] CO2 25.9 21 - 32 MMOL/L 04/19/2021 10:49 AM CDT [facility] CALCIUM S/P/B 8.8 8.5 - 10.1 MG/DL 04/19/2021 10:49 AM CDT [facility] BILIRUBIN TOTAL S/P/B 0.4 0.2 - 1.2 MG/DL 04/19/2021 10:49 AM CDT [facility] Comment: THIS ASSAY IS NOT RECOMMENDED FOR PATIENTS UNDERGOING TREATMENT WITH ELTROMBOPAG DUE TO THE POTENTIAL FOR FALSELY ELEVATED RESULTS. TOTAL PROTEIN S/P/B 7.7 6.4 - 8.2 G/DL 04/19/2021 10:49 AM T [facility] ALBUMIN S/P/B 3.3(L) 3.4 - 5.0 G/DL 04/19/2021 10:49 AM T [facility] AST 13(L) 15 - 37 U/L 04/19/2021 10:49 AM T [facility] ALT 22 14 - 55 U/L 04/19/2021 10:49 AM [facility] ALKALINE PHOSPHATASE S/P/B 48(L) 50 - 136 U/L 04/19/2021 10:49 AM [facility] ANION GAP 3.1(L) 5 - 15 MMOL/L 04/19/2021 10:49 AM T [facility] BUN CREATININE RATIO 18.4 6 - 26 04/19/2021 10:49 AM [facility] A/G RATIO 0.8(L) 1.0 - 2.0 RATIO 04/19/2021 10:49 AM [facility] EGFR NON-AFR. AMER. >90 >90 ML/MIN/1.7 3 M2 04/19/2021 10:49 AM T [facility] EGFR AFR. AMER. >90 >90 ML/MIN/1.7 3 M2 04/19/2021 10:49 AM [facility] Comment: NOTE: eGFR is not calculated for patients <18 years of age. This is an estimated GFR (CKD EPI) and should not be used for calculating drug doses. 04/19/2021 10:0 9 AM CDT Kaylan Tatumpson HEALTH SERVICE WORKER LABORATORY Final Res ult [facility] [address] [place] [address], * (ABNORMAL) CBC W/DIFF AUTOMATED (04/19/2021 10:09 AM CDT) [facility] WBC 7.2 4.5 - 11.0 x10'3/uL 04/19/2021 10:43 AM CDT [facility] RBC 4.15(L) 4.20 - 5.40 x10'6/uL 04/19/2021 10:43 AM CDT [facility] HGB 12.5 12.0 - 16.0 G/DL 04/19/2021 10:43 AM CDT [facility] HCT 39.1 38.0 - 48.0 % 04/19/2021 10:43 AM CDT [facility] MCV 94.2 81.0 - 99.0 FL 04/19/2021 10:43 AM CDT [facility] MCH 30.1 27.0 - 31.0 PG 04/19/2021 10:43 AM CDT [facility] MCHC 32.0 32.0 - 36.0 G/DL 04/19/2021 10:43 AM CDT [facility] RDW 13.5 11.5 - 14.5 % 04/19/2021 10:43 AM CDT [facility] PLT 172 130 - 400 x10'3/uL 04/19/2021 10:43 AM CDT [facility] MPV 11.9 9.3 - 12.2 FL 04/19/2021 10:43 AM CDT [facility] DIFFERENTIAL TYPE MANUAL DIFFERENTIAL 04/19/2021 10:52 AM CDT [facility] SEG NEUTROPHILS 73 % 10:52 AM CDT [facility] LYMPHOCYTES 19 % 04/19/2021 10:52 AM CDT [facility] MONOCYTES 4 % 04/19/2021 10:52 AM CDT [facility] EOSINOPHILS 4 % 04/19/2021 10:52 AM CDT [facility] ABS. NEUTROPHILS CALCULATED 5.26 1.80 - 7.70 x10'3/uL 04/19/2021 10:52 AM CDT [facility] ABS.LYMPHOCYTES CALCULATED 1.37 1.00 - 4.80 x10'3/uL 04/19/2021 10:52 AM CDT [facility] ABS. MONOCYTES CALCULATED 0.29 0.24 - 0.86 x10'3/uL 04/19/2021 10:52 AM CDT [facility] ABS. EOSINOPHIL CALCULATED 0.29 0.04 - 0.36 x10'3/uL 04/19/2021 10:52 AM CDT [facility] RBC MORPHOLOGY SLIDE REVIEWED 2020 10:52 AM CDT [facility] LARGE PLATELET 1+ 04/19/2021 10:52 AM CDT [facility] PLT EST. ADEQUATE 04/19/2021 10:52 AM CDT [facility] 04/19/2021 10:0 9 AM CDT us Kaylan Pendleton HEALTH SERVICE WORKER LABORATORY Final Res ult [facility] [address] [place] [address], [place] [phone] * EKG Reading (04/19/2021 10:06 AM CDT) Narrative Geldmacher, Laurie J, MD - 04/19/2021 10:06 AM CDT JULIO Joyce ? 04/19/2021 ??8:55 PM EKG Reading Date/Time: 04/19/2021 8:53 PM Performed by: JULIO Jocye Authorized by: JULIO Joyce Interpreted by ED physician: kaylan brooke-bc. Rhythm: sinus rhythm Rate: normal Rate comments: 73 ST Segments: ST segments normal Clinical impression comment: no acute st/t wave changes us Kaylan [facility] Final Result * ECG 12 lead (04/19/2021 9:50 AM CDT) 04/19/2021 9:50 AM CDT Narrative [facility] - 04/19/2021 11:33 AM CDT ?[facility] ? [address] ? Test Date: ?2021-04-19 Pat Name: ? EDGARDOSUDEEP DUNLAP ?Department: ? Room: ? INPR Gender: ? Female ? Industrial Cook: ?? CATALOGUE ILLUSTRATOR : ?1985 ? Requested By: KAYLAN PENDLETON Order Number: [id number] ? Reading MD: ?? Anjum Seals ? Measurements Intervals ?[place] ? Rate: ? 73 ? P: ?65 OR: ? 149 ?QRS: ?12 QRSD: ? 96 ? T: ?21 QT: ? 385 ? QTc: ?427 ? Interpretive Statements SINUS RHYTHM POSSIBLE LEFT ATRIAL ENLARGEMENT POSSIBLE RIGHT VENTRICULAR CONDUCTION DELAY No previous ECG available for comparison Procedure Note Anjum Seals MD - 04/19/2021 [facility] [address] [place] Test Date: 2021-04-19 Pat Name: SARITHA DUNLAP Department: Room: INOR Gender: Female Industrial Cook: : 1985 Requested By: KAYLAN PENDLETON Order Number: [id number] Tong MD: Anjum Seals Measurements Intervals [place] Rate: 73 P: 65 OR: 149 QRS: 12 QRSD: 96 T: 21 QT: 385 QTc: 427 Interpretive Statements SINUS RHYTHM POSSIBLE LEFT ATRIAL ENLARGEMENT POSSIBLE RIGHT VENTRICULAR CONDUCTION DELAY No previous ECG available for comparison us Kaylan Pendleton HEALTH SERVICE WORKER ECG ORDERABLES Final Res ult [facility] documented in this encounter Visit [...] RDMS) documented in this encounter Care Teams Construction Craft Laborer Relationship Specialty Start Date End Date Steve Benitez MD PCP - General INTERNAL MEDICINE 09/27/18 documented as of this encounter
--- OUTSIDE RECORDS SUMMARY | 2024-09-30 20:06 | XMS_ITS | Clinical Summary ---
Author Organization [facility] Address [address] [place] [address]. 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
--- OUTSIDE RECORDS SUMMARY | 2024-09-30 20:06 | XMS_ITS | Encounter Summary ---
Author Organization [facility] Address [address] [place] [address]. 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
--- OUTSIDE RECORDS SUMMARY | 2024-09-30 20:06 | XMS_ITS | Encounter Summary ---
Author Organization [facility] Address [address] [place] [address]. 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
--- OUTSIDE RECORDS SUMMARY | 2024-09-30 20:06 | XMS_ITS | Encounter Summary ---
Author Organization [facility] Address [address] [place] [address]. [place], [place] [address] [place] [address] Care Team Providers Care Cable Inspector Name Role Phone Steve Benitez MD Primary Care Provider [phone] Reason for Visit * Reason Comments Urinary Symptoms Encounter Details Date Type Department Care Team (Latest Contact Info) Description 09/27/2018 11:36 AM JOURNEY LINEMAN - 09/27/2018 12:18 PM JOURNEY LINEMAN Hospital En[place] [address] [place] [address] Gustavo Gore PA-C [address] [address] Urinary Symptoms Discharge Disposition: Home or Self [...] on file Legal Sex Female 11:32 AM JOURNEY LINEMAN Gender Identity Not on file Sexual Orientation Not on file documented as of this encounter Last Filed Vital Signs Vital Sign Reading Time Taken Comments Blood Pressure 144/91 09/27/2018 11:37 AM JOURNEY LINEMAN Pulse 72 09/27/2018 11:37 AM JOURNEY LINEMAN Temperature 36.9 ??C (98.4 ??F) 09/27/2018 11:[address] Respiratory Rate 20 09/27/2018 11:37 AM JOURNEY LINEMAN Oxygen Saturation 100% 09/27/2018 11:37 AM JOURNEY LINEMAN Inhaled Oxygen Concentration - - Weight 80.7 kg (178 lb) 09/27/2018 11:37 AM JOURNEY LINEMAN Height 160 cm (5' 3 ) 09/27/2018 11:37 AM JOURNEY LINEMAN Body Mass Index 31.53 09/27/2018 11:37 AM JOURNEY LINEMAN documented in this encounter Discharge Instructions * Discharge Instructions* Gustavo Gore PA-C - 09/27/2018 12:16 PM JOURNEY LINEMAN Use antibiotics as directed for urinary tract infection. Use antibiotics as directed for bacterial vaginosis. Use Diflucan 1 time as directed. Follow-up with your primary care physician for further evaluation of symptoms and follow- up with AMMONIA PRINT OPERATOR at your upcoming appointment regarding current symptoms. Return to ED if symptoms change or worsen. NEY LINEMAN * Attachments The following attachments cannot be sent through Care Everywhere. * Urinary Tract Infection Discharge Instructions, Adult (Taiwanese) * Bacterial Vaginosis Discharge Instructions (Taiwanese) documented in this encounter Medications at Time [...] of Present Illness Patient is a 33-year-old -Gambian female who presents to the urgent care with reports of increased urinary frequency, intermittent lumbar back pain and vaginal discharge over the past 1 week.Patient reports her AMMONIA PRINT OPERATOR prescribed metronidazole gel and Diflucan which she [...] CLEAN CATCH COLOR YELLOW TRANSPARENCY CLEAR Specific [place] (U) 1.020 1.001 - 1.030 U PH [...] Value Ref Range PREG TEST NEGATIVE Specific [place] (U) 1.020 >1.009 IMAGING STUDIES No orders [...] infection. Patient agreed to follow-up with her AMMONIA PRINT OPERATOR Dr. Espinal and has upcoming appointment. Patient was given discharge instructions and return precautions and had no questions at this time. Patient told to return to the ED if symptoms change or worsen. Clinical Impression UTI (urinary tract infection) (Primary) Vaginal discharge Disposition: Discharge Gustavo Gore PA-C 09/27/18 1217 Cosigned by David Navarro MD at 09/27/2018 1:11 PM JOURNEY LINEMAN NEY LINEMAN NEY LINEMAN * Veronica Cerrato RN - 09/27/2018 11:44 AM CST PATIENT C/O LOW BACK PAIN, FREQUENCY, VAGINAL DISCHARGE WITH ODOR THAT IS WHITE. FOR PAST 3 WEEKS. WHOLESALE REPRESENTATIVE CALLED HER IN A SCRIPT FOR THE YEAST. NEY LINEMAN documented in this encounter Plan of Treatment Not on file documented as of this encounter Procedures Procedure Name Priority Date/Time Associated Diagnosis Comments TEST URINE STAT 09/27/2018 11:46 AM JOURNEY LINEMAN URINE BACTERIA CULTURE Routine 09/27/2018 11:46 AM JOURNEY LINEMAN URINALYSIS AUTO DIP STAT 09/27/2018 1 1:46 AM JOURNEY LINEMAN documented in this encounter Results * CULTURE URINE (09/27/2018 11:46 AM JOURNEY LINEMAN) SPEC DESCRIPTION URINE CLEAN CATCH 09/27/2018 12:08 PM JOURNEY LINEMAN [facility] SPECIAL REQUESTS NO SPECIAL REQUEST 09/27/2018 12:08 PM JOURNEY LINEMAN [facility] CULTURE RESULT POLYMICROBIAL GROWTH CONSISTENT WITH NORMAL GENITAL DANI. ?? SUSCEPTIBILITIES NOT ROUTINELY PERFORMED. 09/29/2018 3:43 PM JOURNEY LINEMAN [facility] URINE SPECIMEN OBTAINED BY CLEAN CATCH PROCEDURE / Unknown 09/27/2018 11:46 AM JOURNEY LINEMAN 09/27/2018 12:08 PM JOURNEY LINEMAN Gustavo Gore PA-C MICROBIOLOGY - GENERAL ORDERABLES Final Result Performing Organization Address City/[facility]/ZIP Co de Phone Number [facility] [address] [place] [address], [place] [phone] [place] [address], [place] * TEST URINE (09/27/2018 11:46 AM JOURNEY LINEMAN) PREG TEST NEGATIVE 09/27/2018 12:05 PM JOURNEY LINEMAN [facility] SPECIFIC GRAVITY (U) 1.020 >1.009 09/27/2018 12:05 PM [facility] URINE SPECIMEN OBTAINED BY CLEAN CATCH PROCEDURE / Unknown 09/27/2018 11:46 AM JOURNEY LINEMAN Gustavo Gore PA-C [place] [address], [place] * (ABNORMAL) URINALYSIS AUTO DIP (09/27/2018 11:46 AM JOURNEY LINEMAN) SPECIMEN TYPE URINE CLEAN CATCH 09/27/2018 11:46 AM [facility] COLOR (U) YELLOW 09/27/2018 12:07 PM JOURNEY LINEMAN [facility] Comment: TESTING PERFORMED AT [facility] [address] [place] [address] ??[address] YOSVANY OVIEDO M.D., WALLPAPER EMBOSSER HELPER TRANSPARENCY CLEAR 09/27/2018 12:07 PM [facility] SPECIFIC GRAVITY (U) 1.020 1.001 - 1.030 09/27/2018 12:07 PM [facility] U PH 7.0 5.0 - 9.0 09/27/2018 12:07 PM [facility] LEUKOCYTES (U) LARGE(A) NEGATIVE 09/27/2018 12:07 PM [facility] NITRITES NEGATIVE NEGATIVE 09/27/2018 12:07 PM [facility] PROTEIN (U) NEGATIVE <30 MG/DL 09/27/2018 12:07 PM [facility] URINE GLUCOSE NEGATIVE NEGATIVE MG/DL 09/27/2018 12:07 PM [facility] KETONES MG/DL (U) NEGATIVE NEGATIVE MG/DL 09/27/2018 12:07 PM [facility] UROBILINOGEN 0.2(A) NEGATIVE MG/DL 09/27/2018 12:07 PM [facility] BILIRUBIN (U) NEGATIVE NEGATIVE MG/DL 09/27/2018 12:07 PM [facility] BLOOD (U) TRACE(A) NEGATIVE 09/27/2018 12:07 PM [facility] CULTURE & SENSITIVITY INDICATED? SPECIMEN SETUP FOR CULTURE 09/27/2018 12:07 PM [facility] URINE SPECIMEN OBTAINED BY CLEAN CATCH PROCEDURE / Unknown 09/27/2018 11:46 AM JOURNEY LINEMAN us Gustavo Gore PA-C URINE ORDERABLES [place] [address], documented in this encounter Visit Diagnoses Diagnosis UTI (urinary tract infection)- Primary Urinary tract infection, site not specified Vaginal discharge Leukorrhea, not specified as infective documented in this encounter Care Teams Cable Inspector Relationship Specialty Start Date End Date Steve Benitez MD PCP - General INTERNAL MEDICINE 09/27/18 documented as of this encounter
--- OUTSIDE RECORDS SUMMARY | 2024-09-30 20:06 | XMS_ITS | Encounter Summary ---
Author Organization [facility] Address [address] [place] [address]. 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 * Flu (Polish) documented in this encounter Medications at Time [...] XR CHEST PORTABLE Final Result by User, [id number] (12/01 2101) Examination: Chest x-ray 1 view [...] 12/09/2023 at 2359, Eprescribe Class: Eprescribe Pharmacy: [facility] #[id number] [place] [address] (Ph #: [phone]) oseltamivir (TAMIFLU) 75 MG capsule Take 1 capsule (75 mg total) by mouth 2 (two) times daily for 5days., Starting 12/02/2023, Until 12/07/2023, Eprescribe Class: Eprescribe Pharmacy: [facility] #[id number] [place] [id number] (Ph #: [phone]) ED Course / Medical Decision Making Medical [...] I dictated portions of this note using [employer] speech recognition software. Occasional wrong word or [...] Lizarraga MD, 12/02/2023 9:01 PM Nupur Sanchez [facility] GENERAL IMAGING Final Resul t * (ABNORMAL) INFLUENZA A & B (12/02/2023 8:46 PM CDT) SPECIMEN TYPE SWAB 12/02/2023 9:09 PM CDT [facility] INFLUENZA A NEGATIVE NEGATIVE 12/02/2023 9:32 PM CDT [facility] INFLUENZA B POSITIVE(A) NEGATIVE 12/02/2023 9:32 PM CDT [facility] NASOPHARYNGEAL SWAB / Unknown 12/02/2023 8:46 PM CDT Nupur Sanchez [facility] MICROBIOLOGY - GENERAL ORDE RABLES Final Result [facility] [address] [place] [address], [place] [phone] * CORONAVIRUS (COVID 19) (12/02/2023 8:46 PM CDT) CORONAVIRUS SARS COV 2 RNA NEGATIVE NEGATIVE 12/02/2023 9:32 PM CDT [facility] Comment: NEGATIVE RESULTS DO NOT RULE [...] SPECIMEN TYPE NASAL 12/02/2023 8:46 PM CDT [facility] NASAL STRUCTURE / Unknown 12/02/2023 8:46 PM CDT Nupur Sanchez [facility] MICROBIOLOGY - GENERAL ORDE NICK Final Result [facility] [address] [place] [address], documented in this encounter Visit Diagnoses Diagnosis [...] this section may contain times in both CERTIFIED INDUSTRIAL HYGIENIST and CDT. Scheduled Medication Order 11/30/2023 12/01/2023 [...] documented as of this encounter Care Teams Clinical Supervisor Relationship Specialty Start Date End Date Steve Benitez MD PCP - General INTERNAL MEDICINE 09/27/18 documented as of this encounter
--- OUTSIDE RECORDS SUMMARY | 2024-09-30 20:06 | XMS_ITS | Encounter Summary ---
Author Organization [facility] Address [address] [place] [address]. 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 * Viral Syndrome Discharge Instructions (Macedonian) * Costochondritis (Macedonian) documented in this encounter Medications at Time [...] Thornton MD - 12/05/2023 6:09 AM CDT [place], [place] EMERGENCY DEPARTMENT ENCOUNTER Chief Complaint Chief [...] encounter of 12/05/23 ECG 12 lead Narrative [address] Test Date: 2023-12-05 Pat Name: SARITHA DUNLAP Department: Room: Gender: Female Precipitator Operator: [id number] : 1985 Requested By: ISABELLE ANDRADE Order Number: [id number] Reading MD: Measurements Intervals [place] Rate: 81 P: 49 WY: 156 QRS: 4 QRSD: 85 T: 59 [...] XR CHEST PORTABLE Final Result by User, [id number] (12/04 3113) INDICATION: Chest pain. COMPARISON: Chest radiograph 12/02/2023. [...] 05, 2023 0545 EKG--no STEMI, PVCs in [facility]--interp by me. [CL] ED Course User [...] MG ophthalmic strip ( Not Given 12/05/23 0624) Clinical Impression Influenza (Primary) Costochondritis Discharge Medication List as of 12/05/2023 6:50 AM START taking these medications Details cyclobenzaprine (FLEXERIL) 5 MG tablet Take 1 tablet (5 mg total) by mouth 3 (three) times daily asneeded for Muscle Spasms., Starting Shruti 12/05/2023, Until 12/15/2023 at 2359, Eprescribe Class: Eprescribe Pharmacy: [id number] AT [address] (Ph #: [phone]) Disposition: Discharge Follow-Up: STEVE BENITEZ MD I, [...] Lauryn Ruby MD, 12/05/2023 6:41 AM Ruben Tohrnton MD GENERAL IMAGING Final Result * ECG 12 lead (12/05/2023 5:43 AM CDT) 12/05/2023 5:43 AM CDT Narrative [facility] - 12/05/2023 10:04 PM CDT ?[facility] ? [address] [place] ? Test Date: ?2023-12-05 Pat Name: ? SARITHA DUNLAP ?Department: ?? 41 ? Room: ? Gender: ? Female ? Precipitator Operator: ?? [id number] : ?1985 ? Requested By: ISABELLE ANDRADE Order Number: [id number] ? Reading MD: ?? Nito Garcia ? Measurements Intervals ?[place] ? Rate: ? 81 ? P: ?49 WY: ? 156 ?QRS: ?4 QRSD: ? 85 ? T: ?59 QT: ? 372 ? QTc: ?434 ? Interpretive Statements SINUS RHYTHM WITH FREQUENT SUPRAVENTRICULAR PREMATURE COMPLEXES IN A BIGEMINAL PATTERN POSSIBLE RIGHT VENTRICULAR CONDUCTION DELAY ??[RSR (QR) IN V1/V2] NONSPECIFIC T-WAVE ABNORMALITY ABNORMAL RHYTHM ECG Compared to ECG 04/19/2021 09:50:34 T-wave abnormality now present Procedure Note Nito Garcia MD - 12/05/[address] [facility] Test Date: 2023-12-05 Pat Name: SARITHA DUNLAP Department: 41 Room: Gender: Female Precipitator Operator: [id number] : 1985 Requested By: ISABELLE ANDRADE Order Number: [id number] Reading MD: Nito Garcia Measurements Intervals [place] Rate: 81 P: 49 WY: 156 QRS: 4 QRSD: 85 T: 59 QT: 372 QTc: 434 Interpretive Statements SINUS RHYTHM WITH FREQUENT SUPRAVENTRICULAR PREMATURE COMPLEXES IN A BIGEMINAL PATTERN POSSIBLE RIGHT VENTRICULAR CONDUCTION DELAY [RSR (QR) IN V1/V2] NONSPECIFIC T-WAVE ABNORMALITY ABNORMAL RHYTHM ECG Compared to ECG 04/19/2021 09:50:34 T-wave abnormality now present Ruben Thornton MD ECG ORDERABLES Final Result [facility] documented in this encounter Visit Diagnoses Diagnosis Influenza- Primary Influenza with other respiratory manifestations 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
--- OUTSIDE RECORDS SUMMARY | 2024-09-30 20:06 | XMS_ITS | CONTINUITY OF CARE DOCUMENT ---
Author Name abigail hayes Address Unknown Organization [facility] Address [address] [place] [address] [address] [place] [address] Phone [phone] Care Team Providers Care Vendor Analyst Name Role Phone Deondre DENISE, Iglesia Unavailable Rivas GUTIERREZ MD Unavailable [phone] INSURANCE PROVIDERS Payer name Policy type / Coverage type Vendor red green party ID [employer]ILY [employer] Medicaid 1 [id number] [employer] Other [id number]
--- OUTSIDE RECORDS SUMMARY | 2024-09-30 20:06 | XMS_ITS | Encounter Summary ---
Author Organization [facility] Address [address] [place] [address]. [place], [place] [id number] [place] [address] Care Team Providers Care Water Treatment Operator Name Role Phone Steve Benitez MD Primary Care Provider [phone] Reason for Referral * Imaging (Emergency) - Closed Specialty Diagnoses / Procedures Referred By Christina mcnally Referred To Contact RADIOLOGY Procedures CTA CHEST Kaylan Pendleton FNP [phone] [address] Phone: tel: fax: Referral ID Status Reason Start Date Expiration Date Visits Re quested Visits Authorized [id number] Closed 04/19/2021 05/20/2022 1 1 Reason for Visit * Reason Comments Musculoskeletal Pain Encounter Details Date Type Department Care Team (Late st Contact Info) Description 04/19/2021 9:44 AM CDT - 04/19/2021 12:51 PM CDT Emergency [facility] [place], [place] [id number] Kaylan Pendleton FNP [phone] [id number] Musculoskeletal Pain Discharge Disposition: Home or Self [...] on file 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 Reports pain increases when movingarm. States she was lifting boxes two weeks ago when pain began. Denies any SOB at this time. Denies any cardiac history. * JULIO Joyce - 04/19/2021 9:48 AM CDT [place], [place] EMERGENCY DEPARTMENT ENCOUNTER Medical Screening Examination 04/19/21 9:48 AM Chief Complaint : Musculoskeletal Pain HPI : Saritha Dunlap is a 35-year-old female who presents with chest pain, hx of asthma. Vital Signs: There were no vitals filed for this visit. Physical exam: A brief physical exam was completed to facilitate/expedite patient care. Butcher findings include: Plan: JULIO Jocye 04/19/21 0948 Cosigned by Laurie Phelps MD [...] Gould MD, 04/19/2021 12:16 PM Kaylan Pendleton EDITORIAL ASSISTANT CT Final Res ult * XR CHEST [...] Lizarraga MD, 04/19/2021 10:38 AM Kaylan Pendleton EDITORIAL ASSISTANT GENERAL IMAGING Final Res ult * (ABNORMAL) D-DIMER, QUANTITATIVE (04/19/2021 10:09 AM CDT) D-DIMER 657(HH) 0 - 500 ng{FEU}/mL 04/19/2021 10:[address] [facility] Comment: D-Dimer values less than or [...] called 04/19/2021 10:50 AM to EMERGENCY ROOM ([id number]/[facility] CRUZ) by [id number]. Read Back: Yes 04/19/2021 10:0 9 AM CDT us Kaylan Pendleton EDITORIAL ASSISTANT LABORATORY Final Res ult [facility] [address] [place] [address], * (ABNORMAL) COMPREHENSIVE METABOLIC PANEL (04/19/2021 10:09 AM CDT) GLUCOSE 81 70 - 99 MG/DL 04/19/2021 10:[address] [facility] BUN 12 7 - 18 MG/DL 04/19/2021 10:[address] [facility] CREATININE S/P/B 0.65 0.55 - 1.02 MG/DL 04/19/2021 10:[address] [facility] SODIUM S/P/B 138 136 - 145 MMOL/L 04/19/2021 10:[address] [facility] POTASSIUM S/P/B 4.0 3.5 - 5.1 MMOL/L 04/19/2021 10:[address] [facility] CHLORIDE S/P/B 109(H) 100 - 108 MMOL/L 04/19/2021 10:[address] [facility] CO2 25.9 21 - 32 MMOL/L 04/19/2021 10:[address] [facility] CALCIUM S/P/B 8.8 8.5 - 10.1 MG/DL 04/19/2021 10:[address] [facility] BILIRUBIN TOTAL S/P/B 0.4 0.2 - 1.2 MG/DL 04/19/2021 10:[address] [facility] Comment: THIS ASSAY IS NOT RECOMMENDED FOR PATIENTS UNDERGOING TREATMENT WITH ELTROMBOPAG DUE TO THE POTENTIAL FOR FALSELY ELEVATED RESULTS. TOTAL PROTEIN S/P/B 7.7 6.4 - 8.2 G/DL 04/19/2021 10:[address] [facility] ALBUMIN S/P/B 3.3(L) 3.4 - 5.0 G/DL 04/19/2021 10:[address] [facility] AST 13(L) 15 - 37 U/L 04/19/2021 10:[address] [facility] ALT 22 14 - 55 U/L 04/19/2021 10:49 AM [facility] ALKALINE PHOSPHATASE S/P/B 48(L) 50 - 136 U/L 04/19/2021 10:49 AM [facility] ANION GAP 3.1(L) 5 - 15 MMOL/L 04/19/2021 10:[address] [facility] BUN CREATININE RATIO 18.4 6 - 26 04/19/2021 10:49 AM [facility] A/G RATIO 0.8(L) 1.0 - 2.0 RATIO 04/19/2021 10:49 AM [facility] EGFR NON-AFR. AMER. >90 >90 ML/MIN/1.7 3 M2 04/19/2021 10:[address] [facility] EGFR AFR. AMER. >90 >90 ML/MIN/1.7 3 M2 04/19/2021 10:49 AM [facility] Comment: NOTE: eGFR is not calculated for patients <18 years of age. This is an estimated GFR (CKD EPI) and should not be used for calculating drug doses. 04/19/2021 10:0 9 AM CDT Kaylan Tatumpson EDITORIAL ASSISTANT LABORATORY Final Res ult [facility] [address] [place] [address], * (ABNORMAL) CBC W/DIFF AUTOMATED (04/19/2021 10:09 AM CDT) [facility] WBC 7.2 4.5 - 11.0 x10'3/uL 04/19/2021 10:[address] [facility] RBC 4.15(L) 4.20 - 5.40 x10'6/uL 04/19/2021 10:[address] [facility] HGB 12.5 12.0 - 16.0 G/DL 04/19/2021 10:[address] [facility] HCT 39.1 38.0 - 48.0 % 04/19/2021 10:[address] [facility] MCV 94.2 81.0 - 99.0 FL 04/19/2021 10:[address] [facility] MCH 30.1 27.0 - 31.0 PG 04/19/2021 10:[address] [facility] MCHC 32.0 32.0 - 36.0 G/DL 04/19/2021 10:[address] [facility] RDW 13.5 11.5 - 14.5 % 04/19/2021 10:[address] [facility] PLT 172 130 - 400 x10'3/uL 04/19/2021 10:[address] [facility] MPV 11.9 9.3 - 12.2 FL 04/19/2021 10:[address] [facility] DIFFERENTIAL TYPE MANUAL DIFFERENTIAL 04/19/2021 10:[address] [facility] SEG NEUTROPHILS 73 % 10:[address] [facility] LYMPHOCYTES 19 % 04/19/2021 10:[address] [facility] MONOCYTES 4 % 04/19/2021 10:[address] [facility] EOSINOPHILS 4 % 04/19/2021 10:[address] [facility] ABS. NEUTROPHILS CALCULATED 5.26 1.80 - 7.70 x10'3/uL 04/19/2021 10:[address] [facility] ABS.LYMPHOCYTES CALCULATED 1.37 1.00 - 4.80 x10'3/uL 04/19/2021 10:[address] [facility] ABS. MONOCYTES CALCULATED 0.29 0.24 - 0.86 x10'3/uL 04/19/2021 10:[address] [facility] ABS. EOSINOPHIL CALCULATED 0.29 0.04 - 0.36 x10'3/uL 04/19/2021 10:[address] [facility] RBC MORPHOLOGY SLIDE REVIEWED 2020 10:[address] [facility] LARGE PLATELET 1+ 04/19/2021 10:[address] [facility] PLT EST. ADEQUATE 04/19/2021 10:[address] [facility] 04/19/2021 10:0 9 AM CDT us Kaylan Pendleton EDITORIAL ASSISTANT LABORATORY Final Res ult [facility] [address] [place] [address], [place] [phone] * EKG Reading (04/19/2021 10:06 AM CDT) [...] acute st/t wave changes us Kaylan [place] [facility] Final Result * ECG 12 lead (04/19/2021 9:50 AM CDT) 04/19/2021 9:50 AM CDT Narrative [facility] - 04/19/2021 11:33 AM CDT ?[facility] [place] ? [address] [place] ? Test Date: ?2021-04-19 Pat Name: ? EDGARDOSUDEEP DUNLAP ?Department: ? Room: ? INPR Gender: ? Female ? Zoning Technician: ?? SEW ON OPERATOR : ?1985 ? Requested By: KAYLAN PENDLETON Order Number: [id number] ? Reading MD: ?? Anjum Seals ? Measurements Intervals ?[place] ? Rate: ? 73 ? P: ?65 IA: ? 149 ?QRS: ?12 QRSD: ? 96 ? T: ?21 QT: ? 385 ? QTc: ?427 ? Interpretive Statements SINUS RHYTHM POSSIBLE LEFT ATRIAL ENLARGEMENT POSSIBLE RIGHT VENTRICULAR CONDUCTION DELAY No previous ECG available for comparison Procedure Note Anjum Seals MD - 04/19/2021 [facility] [place] [address] [place] Test Date: 2021-04-19 Pat Name: SARITHA DUNLAP Department: Room: [facility] Gender: Female Zoning Technician: : 1985 Requested By: KAYLAN PENDLETON Order Number: [id number] Tong MD: Anjum Seals Measurements Intervals [place] Rate: 73 P: 65 IA: 149 QRS: 12 QRSD: 96 T: 21 QT: 385 QTc: 427 Interpretive Statements SINUS RHYTHM POSSIBLE LEFT ATRIAL ENLARGEMENT POSSIBLE RIGHT VENTRICULAR CONDUCTION DELAY No previous ECG available for comparison us Kaylan Pendleton EDITORIAL ASSISTANT ECG ORDERABLES Final Res ult [facility] documented in this encounter [...] RDMS) documented in this encounter Care Teams Water Treatment Operator Relationship Specialty Start Date End Date Steve Benitez MD PCP - General INTERNAL MEDICINE 09/27/18 documented as of this encounter
--- OUTSIDE RECORDS SUMMARY | 2024-09-30 20:06 | XMS_ITS | Encounter Summary ---
Author Organization [facility] Address [address] [place] [address]. 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
--- OUTSIDE RECORDS SUMMARY | 2024-09-30 20:06 | XMS_ITS | Data Portability ---
Author Organization [facility], [employer] Address [address] [address] Care Team Providers Care District Branch Manager Name Role Phone ISRAEL SCHUSTER Disease Control Inspector STEVE SHAHID Primary Care Provider [phone] Assessment Encounter Date Assessment Date Assessment LastModified [...] understanding . Follow up as noted below. [email or web address] Not available 02/26/2024 15:07:31 05/28/2024 05/28/2024 Patient [...] 05/11/2021 08:38:22 urinalysi s, dipstick 2023 024 [facility], [facility], [address], [place], [address], 12/17/2023 15:19:49 lipid panel w/ direct LDL, serum 2023 024 [facility], [address], [place], [address], 12/24/2023 04:11:07 hepatitis C Ab, serum 2023 024 [facility], [address], [place], [address], 12/24/2023 04:11:07 ige, total, serum 2023 024 [facility], [address], [place], [address], 12/24/2023 04:11:05 CBC w/ auto diff 2023 024 [facility], [address], [place], [address], 02/27/2024 15:21:13 H pylori Ag, stool 2023 024 [facility], [address], [place], [address], 12/24/2023 04:11:06 microalbu min/creat inine, mass ratio, urine [address] [facility], [address], [place], [address], 12/17/2023 12:43:01 CMP, serum or plasma 2023 024 [facility], [address], [place], [address], 12/24/2023 04:11:06 CBC 2023 024 [facility], [address], [place], [address], 12/24/2023 04:11:06 vitamin D, 25-hydrox y, total, serum 2023 024 [facility], [address], [place], [address], 12/24/2023 04:11:06 magnesium , QN, serum or plasma 2023 024 [facility], [address], [place], [address], 12/24/2023 04:11:07 vitamin B12 + folate, serum or blood [address] [facility], [address] [facility], [place], [address], 12/17/2023 12:43:01 HbA1c (hemoglob in A1c), blood 2023 024 [facility], [address] [facility], [place], [address], 12/24/2023 04:11:06 TSH, serum or plasma 2023 024 [facility], [address] [facility], [place], [address], 12/24/2023 04:11:06 urinalysi s, dipstick 2023 024 [facility], [facility], [address] [facility] [address], [place], [address], 02/27/2024 15:07:42 CMP, serum or plasma 2023 024 [facility], [address] [facility], [place], [address], 02/27/2024 15:21:14 CBC 2023 024 [facility], [address] [facility], [place], [address], 03/04/2024 04:10:09 vitamin D, 25-hydrox y, total, serum 2023 024 [facility], [address] [facility], [place], [address], 03/04/2024 04:10:09 vitamin B12, serum 2023 024 [facility], [address] [place], [address], 02/27/2024 15:21:16 magnesium , QN, serum or plasma 2023 024 [facility], [address] [place], [address], 03/04/2024 04:10:09 HbA1c (hemoglob in A1c), blood 2023 024 [facility], [address] [facility], [place], [address], 02/27/2024 15:21:12 TSH, serum or plasma 2023 024 [facility], [address] [facility], [place], [address], 03/04/2024 04:10:09 lipid panel w/ direct LDL, serum 2023 024 [facility], [address] [facility], [place], [address], 09/02/2024 04:05:53 hepatitis C Ab, serum 2023 024 [facility], [address] [facility], [place], [address], 09/02/2024 04:05:53 urinalysi s, dipstick 2023 024 [facility], [address] [facility] [address], [place], [address], 08/27/2024 08:55:14 microalbu min/creat inine, mass ratio, urine 2023 024 [facility], [address] [facility], [place], [address], 08/26/2024 15:46:04 CMP, serum or plasma 2023 024 [facility], [address] [place], [address], 09/02/2024 04:05:52 CBC 2023 024 [facility], [address] [place], [address], 09/02/2024 04:05:52 vitamin D, 25-hydrox y, total, serum 2023 024 [facility], [address] [facility], [place], [address], 09/02/2024 04:05:53 magnesium , QN, serum or plasma 2023 024 [facility], [address] [facility], [place], [address], 09/02/2024 04:05:53 vitamin B12, serum 2023 024 [facility], [address] [place] [address], [place], [address], 09/02/2024 04:05:[address] referral 2020 021 amadeo Brice, [facility] [address] , [place], [address], 06/01/2021 08:37:22 gynecolog ist referral 2023 024 FRITZ Laws MD, [address] [facility] [address], [place], [address], 01/14/2024 04:06:[address] referral 2023 024 FRITZ Brice, [facility] , [place], [address], 01/14/2024 04:06:31 physical therapist referral 2023 024 [facility], [address], [place], [address], 03/25/2024 04:12:31 physical therapist referral 2023 024 [facility], [address], [address], [place], [address], 09/23/2024 04:07:36 Procedures None recorded. Surgeries None recorded. Imaging XR, [facility] spine 2023 [facility], [address], [address], [place], [address], 03/11/2024 04:13:25 US, gallbladd er 2023 [facility], [address], [address], [place], [address], 06/04/2024 04:05:29 MAMMO, screening , digital, bilateral 2023 [facility] Scheduling, [facility], [place], [address], 09/02/2024 04:05:54 Medication Orders Senna Plus 8.6 mg-50 mg tablet 2023 024 [facility]26677, [address] [place] [address], [id number], 12/17/2023 12:41:[address] 10 mg tablet 2023 024 [facility] #15881, [address] [place] [address], [id number], 12/17/2023 12:41:58 albuterol sulfate HFA 90 mcg/actua tion aerosol inhaler 2023 024 [facility]72506, [address] [place] [address], [id number], 05/28/2024 15:35:13 baclofen 10 mg tablet 2023 024 [facility] #61061, [facility] [place], [place], [id number], 02/26/2024 15:44:31 meloxicam 7.5 mg tablet 2023 024 [facility] #90024, [address] [place] [address], [id number], 02/26/2024 15:44:29 ketorolac 30 mg/mL (1 mL) injection solution 2023 [email or web address] Not available 04/24/2024 16:52:44 Zepbound 2.5 mg/0.5 mL subcutane ous pen injector 2023 024 [facility] #10885, [address] [place] [address], [id number], 03/19/2024 15:10:45 Senna Plus 8.6 mg-50 mg tablet 2023 024 [facility] #70810, [address] [place] [address], [id number], 05/28/2024 15:43:42 Airsupra 90 mcg-80 mcg/actua tion HFA aerosol inhaler 2023 024 [facility] #83604, [address] [place] [address], [id number], 05/28/2024 15:43:41 Symbicort 160 mcg-4.5 mcg/actua tion HFA aerosol inhaler 2023 024 [facility] #52572, [address] [place] [address], [id number], 05/28/2024 15:43:41 Airsupra 90 mcg-80 mcg/actua tion HFA aerosol inhaler 2023 024 [facility] #02541, [address] [place] [address], [id number], 08/26/2024 15:45:37 phentermi ne 15 mg capsule 2023 [facility] #46654, [address] [place], [place], [id number], 08/26/2024 15:45:44 topiramat e 25 mg tablet 2023 [facility] #11224, [address] [place], [place], [id number], 08/26/2024 15:45:37 Patient TargetsNo targets recorded. Patient Instructions Encounter Date Encounter Id Patient Instructions Last Modified By Organization Details Last Modified Time 05/04/2021 [id number] infection from tattoos: care instructions mshenouda Not [...] weight mshenouda Not available 05/04/2021 17:04:35 12/17/2023 [id number] back care and preventing injuries: care instructions [...] weight [email or web address] Not available 12/17/2023 12:41:47 02/26/2024 [id number] learning about asthma [email or web address] Not available 02/26/2024 [...] weight [email or web address] Not available 02/26/2024 15:44:21 05/28/2024 [id number] learning about asthma mshenouda Not available 05/28/2024 15:43:32 high blood pressure: care instructions mshenouda Not available 05/28/2024 15:43:32 learning about high blood pressure mshenouda Not available 05/28/2024 15:43:32 body mass index: care instructions mshenouda Not available 05/28/2024 15:43:32 learning about healthy weight mshenouda Not available 05/28/2024 15:43:32 08/26/2024 [id number] mammogram: about this test mshenouda Not available 08/26/2024 15:45:21 infection from tattoos: care instructions mshenouda Not available 08/26/2024 15:45:21 high blood pressure: care instructions mshenouda Not available 08/26/2024 15:45:21 learning about high blood pressure mshenouda Not available 08/26/2024 15:45:21 body mass index: care instructions mshenouda Not available 08/26/2024 15:45:21 learning about healthy weight mshenouda Not available 08/26/2024 15:45:21 Reason for Referral Make Up Operator Referral for Scr eening procedure Referring Physician: Steve Shahid, Internal Medicine, Encounter Date: 05/04/2021 Make Up Operator Referral for Ess ential hypertension Referring Physician: Steve Shahid, Internal Medicine, Encounter Date: 12/17/2023 Compressor Stations Superintendent Referral for Sc reening for malignant neoplasm [...] mala metry testi ng* Spirometry Not Available [facility], [facility] [address], [place], [address], 05/04/2021 16:57:26 12/17/1912/17/2023 mala metry testi ng* Spirometry Not Available [facility], [facility] [address], [place], [address], 12/17/2023 12:35:27 12/17/1912/17/2023 urina lysis , dipst ick Leukocytes Negati ve Not Available [email or web address], [facility] [address], [place], [address], 12/17/2023 12:42:15 12/17/1912/17/2023 urina lysis , dipst ick Nitrite negati ve Not Available [email or web address], [facility] [address], [place], [address], 12/17/2023 12:42:15 12/17/19 24 12/17/2023 urina lysis , dipst ick Urobilinogen 1 Not Available [facility], [facility] [address], [place], [address], 12/17/2023 12:42:15 12/17/19 24 12/17/2023 urina lysis , dipst ick Protein Trace Not Available [facility] [address], [place], [address], 12/17/2023 12:42:15 12/17/1912/17/2023 urina lysis , dipst ick pH 7.0 Not Available [facility] [address], [place], [address], 12/17/2023 12:42:15 12/17/19 24 12/17/2023 urina lysis , dipst ick Blood Negati ve Not Available [facility] [address], [place], [address], 12/17/2023 12:42:15 12/17/19 24 12/17/2023 urina lysis , dipst ick Specific [place] 1.015 Not Available [facility] [address], [place], [address], 12/17/2023 12:42:15 12/17/19 24 12/17/2023 urina lysis , dipst ick Ketone Negati ve Not Available [facility] [address], [place], [address], 12/17/2023 12:42:15 12/17/19 24 12/17/2023 urina lysis , dipst ick Bilirubin Negati ve Not Available [facility], [facility] [address], [place], [address], 12/17/2023 12:42:15 12/17/19 24 12/17/2023 urina lysis , dipst ick Glucose Negati ve Not Available [facility], [facility] [address] [facility] [address], [place], [address], 12/17/2023 12:42:15 12/17/19 24 12/17/2023 urina lysis , dipst ick Appearance Cloudy Not Available [facility], [facility] [address] [facility] [address], [place], [address], 12/17/2023 12:42:15 12/17/19 24 12/17/2023 urina lysis , dipst ick Color Yellow Not Available [facility], [facility] [address] [facility] [address], [place], [address], 12/17/2023 12:42:15 02/26/20 24 02/26/2024 HEMOG LOBIN A1C hemoglobin A1C 5.2 % 4.8-5. 6 OSVALDO L RANGE BASED ON JINNY COL 2 (DCCT /NGSP ): Non-D iabet ic: < 5.7% Pre-D iabet es: 5.7 - 6.4% Diabe anny: => 6.5% GLYCE MUKUND CONTR OL: < 7.0% Not Available [facility] [address], [place], [address], 02/27/2024 15:21:12 02/26/20 24 02/26/2024 HEMOG LOBIN A1C estimated average glucose 102 Not Available [facility] [address], [place], [address], 02/27/2024 15:21:12 02/26/20 24 02/26/2024 CBC WITH AUTO- DIFFE RENTI AL WBC 9.3 10*3/ uL 3.4-10 .8 Not Available [facility] [address], [place], [address], 02/27/2024 15:21:13 02/26/20 24 02/26/2024 CBC WITH AUTO- DIFFE RENTI AL RBC 4.43 10*6/ uL 3.80-5 .30 Not Available [facility] [address], [place], [address], 02/27/2024 15:21:13 02/26/20 24 02/26/2024 CBC WITH AUTO- DIFFE RENTI AL HGB 13.3 g/dL 11.1-1 5.9 Not Available [facility] [address] [facility] [address], [place], [address], 02/27/2024 15:21:13 02/26/20 24 02/26/2024 CBC WITH AUTO- DIFFE RENTI AL HCT 42.5 % 34.0-4 6.6 Not Available [facility] [address] [facility] [address], [place], [address], 02/27/2024 15:21:13 02/26/20 24 02/26/2024 CBC WITH AUTO- DIFFE RENTI AL MCV 96 fL 79-97 Not Available [facility] [address] [facility] [address], [place], [address], 02/27/2024 15:21:13 02/26/20 24 02/26/2024 CBC WITH AUTO- DIFFE RENTI AL MCH 30.0 pg 26.6-3 3.0 Not Available [facility] [address] [facility] [address], [place], [address], 02/27/2024 15:21:13 02/26/20 24 02/26/2024 CBC WITH AUTO- DIFFE RENTI AL MCHC 31.3 g/dL 31.5-3 5.7 low Not Available [facility] [address] [facility] [address], [place], [address], 02/27/2024 15:21:13 02/26/20 24 02/26/2024 CBC WITH AUTO- DIFFE RENTI AL RDW 13.8 % 11.5-1 4.5 Not Available [facility] [address] [facility] [address], [place], [address], 02/27/2024 15:21:13 02/26/20 24 02/26/2024 CBC WITH AUTO- DIFFE RENTI AL platelets 177 10*3/ uL 150-40 0 Not Available [facility] [address] [place] [address] [address], [place], [address], 02/27/2024 15:21:13 02/26/20 24 02/26/2024 CBC WITH AUTO- DIFFE RENTI AL MPV 13 fL 9-13 Not Available [address], [place], [address], 02/27/2024 15:21:13 02/26/20 24 02/26/2024 CBC WITH AUTO- DIFFE RENTI AL neutrophils 57.8 % 40.0-7 4.0 Not Available [facility] [address] [place] [address] [address], [place], [address], 02/27/2024 15:21:13 02/26/20 24 02/26/2024 CBC WITH AUTO- DIFFE RENTI AL absolute neutrophils 5.39 10*3/ uL 1.40-7 .00 Not Available [address], [place], [address], 02/27/2024 15:21:13 02/26/20 24 02/26/2024 CBC WITH AUTO- DIFFE RENTI AL lymphocytes 28.2 % 14.0-4 6.0 Not Available [facility] [address] [place] [address] [address], [place], [address], 02/27/2024 15:21:13 02/26/20 24 02/26/2024 CBC WITH AUTO- DIFFE RENTI AL absolute lymphocytes 2.63 10*3/ uL 0.70-3 .10 Not Available [address], [place], [address], 02/27/2024 15:21:13 02/26/20 24 02/26/2024 CBC WITH AUTO- DIFFE RENTI AL monocytes 5.0 % 4.0-12 .0 Not Available [facility] [address] [facility] [address], [place], [address], 02/27/2024 15:21:13 02/26/20 24 02/26/2024 CBC WITH AUTO- DIFFE RENTI AL absolute monocytes 0.47 10*3/ uL 0.10-0 .90 Not Available [facility] [address] [facility] [address], [place], [address], 02/27/2024 15:21:13 02/26/20 24 02/26/2024 CBC WITH AUTO- DIFFE RENTI AL eosinophils 8.1 % 0.0-5. 0 high Not Available [facility] [address] [facility] [address], [place], [address], 02/27/2024 15:21:13 02/26/20 24 02/26/2024 CBC WITH AUTO- DIFFE RENTI AL absolute eosinophils 0.76 10*3/ uL 0.00-0 .40 high Not Available [facility] [address] [place] [address] [address], [place], [address], 02/27/2024 15:21:13 02/26/20 24 02/26/2024 CBC WITH AUTO- DIFFE RENTI AL basophils 0.6 % 0.0-3. 0 Not Available [facility] [address] [place] [address] [address], [place], [address], 02/27/2024 15:21:13 02/26/20 24 02/26/2024 CBC WITH AUTO- DIFFE RENTI AL absolute basophils 0.06 10*3/ uL 0.00-0 .20 Not Available [facility] [address] [facility] [address], [place], [address], 02/27/2024 15:21:13 02/26/20 24 02/26/2024 CBC WITH AUTO- DIFFE RENTI AL imm. gran. 0.3 % 0.0-2. 0 Not Available [facility] [address] [facility] [address], [place], [address], 02/27/2024 15:21:13 02/26/20 24 02/26/2024 CBC WITH AUTO- DIFFE RENTI AL abs. imm. gran. 0.03 10*3/ uL 0.00-0 .10 Not Available [facility] [address] [facility] [address], [place], [address], 02/27/2024 15:21:13 02/26/20 24 02/26/2024 COMPR EHENS ROCKY METAB OLIC PANEL sodium 141 mmol/ L 134-14 4 Not Available [facility] [address] [facility] [address], [place], [address], 02/27/2024 15:21:14 02/26/20 24 02/26/2024 COMPR EHENS ROCKY METAB OLIC PANEL potassium 4.2 mmol/ L 3.5-5. 2 Not Available [facility] [address] [facility] [address], [place], [address], 02/27/2024 15:21:14 02/26/20 24 02/26/2024 COMPR EHENS ROCKY METAB OLIC PANEL chloride 106 mmol/ L 97-108 Not Available [facility] [address] [facility] [address], [place], [address], 02/27/2024 15:21:14 02/26/20 24 02/26/2024 COMPR EHENS ROCKY METAB OLIC PANEL carbon dioxide (co2) 28.0 mmol/ L 18.0-2 9.0 Not Available [facility] [address] [facility] [address], [place], [address], 02/27/2024 15:21:14 02/26/20 24 02/26/2024 COMPR EHENS ROCKY METAB OLIC PANEL glucose 95 mg/dL 65-99 Osvaldo l Fasti ng: < 100 mg/dL Impai red Fasti n - 125 mg/dL Diagn ostic of Diabe anny: => 126 mg/dL Ameri can Diabe anny [facility] i[facility] n, 2007 Not Available [facility] [address] [facility] [address], [place], [address], 02/27/2024 15:21:14 02/26/20 24 02/26/2024 COMPR EHENS ROCKY METAB OLIC PANEL urea nitrogen (BUN) 11 mg/dL 6-20 Not Available [facility] [address] [facility] [address], [place], [address], 02/27/2024 15:21:14 02/26/20 24 02/26/2024 COMPR EHENS ROCKY METAB OLIC PANEL creatinine 0.82 mg/dL 0.57-1 .00 Not Available [facility] [address] [facility] [address], [place], [address], 02/27/2024 15:21:14 02/26/20 24 02/26/2024 COMPR EHENS ROCKY METAB OLIC PANEL eGFR for nonafrican AM 77 mL/mi nute/ 1.73_ m2 >[address] [facility] [address] [facility] [address], [place], [address], 02/27/2024 15:21:14 02/26/20 24 02/26/2024 COMPR EHENS ROCKY METAB OLIC PANEL eGFR for AM 94 mL/mi nute/ 1.73_ m2 >59 MDRD Study Equat ion: The calcu lated GFR is NOT appli cable for pedia tric (< 18 years old) and > 70 year old patie nts and patie nts that are NOT of [place] . Not Available [facility] [address] [facility] [address], [place], [address], 02/27/2024 15:21:14 02/26/20 24 02/26/2024 COMPR EHENS ROCKY METAB OLIC PANEL calcium 9.0 mg/dL 8.7-10 .2 Not Available [facility] [address] [facility] [address], [place], [address], 02/27/2024 15:21:14 02/26/20 24 02/26/2024 COMPR EHENS ROCKY METAB OLIC PANEL protein, total 7.1 gm/dL 6.4-8. 3 Not Available [facility] [address] [facility] [address], [place], [address], 02/27/2024 15:21:14 02/26/20 24 02/26/2024 COMPR EHENS ROCKY METAB OLIC PANEL albumin 3.9 gm/dL 3.5-5. 2 Not Available [facility] [address] [facility], [place], [address], 02/27/2024 15:21:14 02/26/20 24 02/26/2024 COMPR EHENS ROCKY METAB OLIC PANEL bilirubin, total 0.30 mg/dL 0.00-1 .20 Not Available [facility] [address] [facility] [address], [place], [address], 02/27/2024 15:21:14 02/26/20 24 02/26/2024 COMPR EHENS ROCKY METAB OLIC PANEL alkaline phosphatase (ALP) 71 U/L 39-117 Not Available [facility] [address] [facility] [address], [place], [address], 02/27/2024 15:21:14 02/26/20 24 02/26/2024 COMPR EHENS ROCKY METAB OLIC PANEL aspartate aminotransfe rase (AST) 15 U/L 0-32 Not Available [facility] [address] [facility] [address], [place], [address], 02/27/2024 15:21:14 02/26/20 24 02/26/2024 COMPR EHENS ROCKY METAB OLIC PANEL alanine aminotransfe rase (ALT) 10 U/L 0-33 Not Available [facility] [address] [facility] [address], [place], [address], 02/27/2024 15:21:14 02/26/20 24 02/26/2024 COMPR EHENS ROCKY METAB OLIC PANEL A/G ratio (calculated) 1.2 ratio 1.0-2. 7 Not Available [facility] [address] [facility] [address], [place], [address], 02/27/2024 15:21:14 02/26/20 24 02/26/2024 COMPR EHENS ROCKY METAB OLIC PANEL globulin (calculated) 3.2 gm/dL 1.5-3. 8 Not Available [facility] [address] [facility] [address], [place], [address], 02/27/2024 15:21:14 02/26/20 24 02/26/2024 COMPR EHENS ROCKY METAB OLIC PANEL BUN/creatini ne ratio (calculated) 13.4 ratio 8.0-20 .0 Not Available [facility] [address] [facility] [address], [place], [address], 02/27/2024 15:21:14 02/26/20 24 02/26/2024 COMPR EHENS ROCKY METAB OLIC PANEL serum hemolysis index NORMAL index normal Not Available [facility] [address] [facility] [address], [place], [address], 02/27/2024 15:21:14 02/26/20 24 02/26/2024 MAGNE SIUM magnesium 1.8 mg/dL 1.6-2. 6 Not Available [facility] [address] [facility] [address], [place], [address], 02/27/2024 15:21:15 02/26/20 24 02/26/2024 THYRO ID-ST IM. HORMO NE (TSH) , HIGH- SENSI TIVE thyroid-stim . hormone (TSH), hs 1.05 uIU/m L 0.27-4 .20 Not Available [facility] [address] [facility] [address], [place], [address], 02/27/2024 15:21:15 02/26/20 24 02/26/2024 VITAM IN B12 vitamin B12 572 pg/mL 232-12 45 Not Available [facility] [address] [facility] [address], [place], [address], 02/27/2024 15:21:16 02/26/20 24 02/26/2024 VITAM IN D, 25-HY DROXY TOTAL vitamin D, total 30.2 NG/mL 30.0-1 00.0 The Vitam in D Assay sahara calvillo n has been updat ed to offer direc t trace abili ty to ID-LC -MS/M S Refer ence Measu remen t Proce dure along with a reduc tion in bioti n inter feren ce. Defic ient: < 20 ng/mL Insuf ficie nt: 21 - 29 ng/mL Suffi cient : 30 - 100 ng/mL Poten tial Intox icati on: > 100 ng/mL Not Available [facility] [address] [facility] [address], [place], [address], 02/27/2024 15:21:17 02/28/20 24 02/28/2024 urina lysis , dipst ick Leukocytes Negati ve Not Available [employer], [facility] [address], [place], [address], 02/26/2024 15:40:08 02/28/20 24 02/28/2024 urina lysis , dipst ick Nitrite negati ve Not Available [facility], [facility] [address], [place], [address], 02/26/2024 15:40:08 02/28/20 24 02/28/2024 urina lysis , dipst ick Urobilinogen .2 Not Available [facility], [facility] [address], [place], [address], 02/26/2024 15:40:08 02/28/20 24 02/28/2024 urina lysis , dipst ick Protein Trace Not Available [facility], [facility] [address], [place], [address], 02/26/2024 15:40:08 02/28/20 24 02/28/2024 urina lysis , dipst ick pH 7.5 Not Available [facility], [facility] [address], [place], [address], 02/26/2024 15:40:08 02/28/20 24 02/28/2024 urina lysis , dipst ick Blood Negati ve Not Available [facility] [address], [place], [address], 02/26/2024 15:40:08 02/28/20 24 02/28/2024 urina lysis , dipst ick Specific [place] 1.010 Not Available [facility] [address], [place], [address], 02/26/2024 15:40:08 02/28/20 24 02/28/2024 urina lysis , dipst ick Ketone Small Not Available [facility] [address], [place], [address], 02/26/2024 15:40:08 02/28/20 24 02/28/2024 urina lysis , dipst ick Bilirubin Negati ve Not Available [facility], [facility] [address], [place], [address], 02/26/2024 15:40:08 02/28/20 24 02/28/2024 urina lysis , dipst ick Glucose Negati ve Not Available [facility], [facility] [address] [facility] [address], [place], [address], 02/26/2024 15:40:08 02/28/20 24 02/28/2024 urina lysis , dipst ick Appearance Slight ly Cloudy Not Available [facility], [facility] [address] [facility] [address], [place], [address], 02/26/2024 15:40:08 02/28/20 24 02/28/2024 urina lysis , dipst ick Color Dark Yellow Not Available [facility], [facility] [address] [facility] [address], [place], [address], 02/26/2024 15:40:08 08/27/20 24 08/27/2024 urina lysis , dipst ick Leukocytes Negati ve Not Available [facility], [facility] [address] [facility] [address], [place], [address], 08/26/2024 15:42:39 08/27/20 24 08/27/2024 urina lysis , dipst ick Nitrite negati ve Not Available [facility], [facility] [address] [facility] [address], [place], [address], 08/26/2024 15:42:39 08/27/20 24 08/27/2024 urina lysis , dipst ick Urobilinogen 4 Not Available [facility] [address] [facility] [address], [place], [address], 08/26/2024 15:42:39 08/27/20 24 08/27/2024 urina lysis , dipst ick Protein Trace Not Available [facility], [facility] [address] [facility] [address], [place], [address], 08/26/2024 15:42:39 08/27/20 24 08/27/2024 urina lysis , dipst ick pH 5.0 Not Available [facility], [facility] [address] [facility] [address], [place], [address], 08/26/2024 15:42:39 08/27/20 24 08/27/2024 urina lysis , dipst ick Blood Negati ve Not Available [facility] [address] [facility] [address], [place], [address], 08/26/2024 15:42:39 08/27/20 24 08/27/2024 urina lysis , dipst ick Specific [place] 1.005 Not Available [facility] [address] [facility] [address], [place], [address], 08/26/2024 15:42:39 08/27/20 24 08/27/2024 urina lysis , dipst ick Ketone Negati ve Not Available [facility] [address] [facility] [address], [place], [address], 08/26/2024 15:42:39 08/27/20 24 08/27/2024 urina lysis , dipst ick Bilirubin Negati ve Not Available [facility], [facility] [address] [facility] [address], [place], [address], 08/26/2024 15:42:39 08/27/20 24 08/27/2024 urina lysis , dipst ick Glucose Negati ve Not Available [facility] [address] [facility] [address], [place], [address], 08/26/2024 15:42:39 08/27/20 24 08/27/2024 urina lysis , dipst ick Appearance Cloudy Not Available [facility] [address] [facility] [address], [place], [address], 08/26/2024 15:42:39 08/27/20 24 08/27/2024 urina lysis , dipst ick Color Yellow Not Available [employer] [address], [place], [address], 08/26/2024 15:42:39 04/19/20 21 xr chest Pa+la t [facility] [place] [address] Orderi ng Provid er: MIRLANDE MCWILLIAMS Examin [...] reted By: Nito Lizarraga MD, 10:38 AM [facility] [address] [facility], [place], [address], 05/04/2021 16:53:51 04/19/20 21 04/19/2021 XR, chest , 2 view No observ ation record ed. [facility] [place] [address] [facility], [place], [address], 05/04/2021 16:53:51 04/19/20 21 ECG 12-le ad [facility] [address] Orderi ng Provid er: MIRLANDE SMARTMirella Long [facility] [place]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
== END 2024-09-24 04:51 | disposition home or self-care (01) ==
PROVIDERS: Emergency Provider Physician Assistant; PCP Internal Medicine
DX: G89.18 Other acute postprocedural pain (principal); R10.30 Lower abdominal pain, unspecified; I10 Essential (primary) hypertension; F41.8 Other specified anxiety disorders; E78.00 Pure hypercholesterolemia, unspecified; Z90.710 Acquired absence of both cervix and uterus
CPT/HCPCS: 36415; 74177; 80053; 81003; 81025; 83690; 83880; 85025; 96374; 96375; 99284; A9270; J2270; J2405; Q9967